=== PATIENT | female | born 1935 | race Caucasian/White ===

== ENCOUNTER 2016-10-20 07:37 | Inpatient (IN) | payer MEDICARE, OTHER ==
[~2016-10-20] VITALS: Ht 162.6 cm; Wt 74.9 kg
[~2016-10-20 07:37] MED LIST: ASPI-492 PO; BENA40TA2 PO; CLON0.1T PO; DABI150C PO; FELO10TA PO; INSLANTI; INSLISPI SC; LEVO150T68 PO; METO-169 PO; PRAV20TA3 PO; [UNRECOGNIZED DRUG - CODE] PO
[2016-10-20] MEDS ORDERED: DILTIAZEM HCL 25 MG/5 ML VIAL IV ONE ×2 (07:49→08:00)
[2016-10-20] MEDS ORDERED: SODIUM CHLORIDE 0.9% 1,000 ML IV ONE (07:53)
[2016-10-20 08:57] LABS: Basophils # (auto) 0 uL; Basophils % (auto) 0.2 % (0.0-2.0); Eosinophils # (auto) 0.1 uL; Eosinophils % (auto) 0.9 % (0.0-7.0); Hematocrit 34.8 % (36.0-46.0); Hemoglobin 11.6 g/dL (12.2-16.2); Lymphocytes # (auto) 0.6 uL; Lymphocytes % (auto) 7.2 % (10.0-50.0); Mean Corpuscular Hemoglobin 28.5 pg (28.0-32.0); Mean Corpuscular Hgb Conc. 33.4 g/dL (32.0-36.0); Mean Corpuscular Volume 85.4 fL (80.0-100.0); Mean Platelet Volume 8.3 fL (7.4-10.4); Monocytes # (auto) 0.3 uL; Monocytes % (auto) 3.4 % (0.0-12.0); Neutrophils # (auto) 7.5 uL; Neutrophils % (auto) 88.3 % (37.0-80.0); Platelet Count (auto) 201 10^3/uL (140-450); White Blood Cell 8.5 10^3/uL (4.4-10.8)
[2016-10-20 09:10] LABS: Partial Thromboplastin Time 46.4 sec (22.64-33.71)
[2016-10-20 09:12] LABS: Urine RBC None Seen /hpf (0 - 4)
[2016-10-20 09:17] LABS: Alkaline Phosphatase 78 U/L (45-117); Anion Gap 10 (5-15); Aspartate Aminotransferase 20 U/L (15-37); BUN/Creatinine Ratio 13.5; Bilirubin, Total 0.9 mg/dL (0.2-1.0); Blood Urea Nitrogen 13 mg/dL (7-18); Calcium 8.2 mg/dL (8.5-10.1); Carbon Dioxide 26 mmol/L (21-32); Chloride 101 mmol/L (98-107); GFR African American 72 mL/min; GFR Non-African American 59 mL/min; Glucose 235 mg/dL (74-106); Magnesium 1.6 mg/dL (1.6-2.6); Potassium 3.7 mmol/L (3.5-5.1); Sodium 137 mmol/L (136-145); Total Protein 6.5 g/dL (6.4-8.2)
[2016-10-20 09:22] LABS: B-Type Natriuretic Peptide 363.57 pg/mL (0-100); Temperature: 22.9 C (20.0-25.0)
[2016-10-20 09:27] LABS: INR 1.35 (0.9-1.15); Prothrombin Time 14.6 sec (9.37-12.3)
[2016-10-20 09:36] LABS: Urine Bilirubin Negative (Negative); Urine Blood Negative /uL (Negative); Urine Color Yellow (Yellow); Urine Nitrite Negative (Negative); Urine Squamous Epithelial Cell FEW /hpf (<5); Urine Urobilinogen Normal (Negative)
[2016-10-20 09:39] LABS: Urine Glucose 2+ mg/dL (Normal); Urine Ketone 1+ (Negative)
[2016-10-20] MEDS ORDERED: cefTRIAXone 1GM/50ML D5W 50 ML IV ONE (11:30)
[2016-10-20] MEDS ORDERED: FUROSEMIDE 40 MG/4 ML VIAL IV ONE ×2 (11:30→12:00)
[2016-10-20] MEDS ORDERED: IOHEXOL 350 MG/ML 100ML IJ ONE (11:39)
[2016-10-20] MEDS ORDERED: HYDROcodone-ACET 5/325MG TAB PO PRN (11:45)
[2016-10-20] MEDS ORDERED: DEXTROSE (50%) 50ML SYRG IV PRN (11:45)
[2016-10-20] MEDS ORDERED: TEMAZEPAM 15 MG CAP PO PRN (11:45)
[2016-10-20] MEDS ORDERED: MORPHINE SULF INJ 2 MG/ML SYRINGE 1ML IV PRN ×2 (11:45)
[2016-10-20] MEDS ORDERED: LORazepam 0.5 MG TAB PO PRN (11:45)
[2016-10-20] MEDS ORDERED: ALBUTEROL SULF 2.5 MG/0.5ML(0.5%) NEB SOLN NEB PRN (11:45)
[2016-10-20] MEDS ORDERED: ACETAMINOPHEN 500 MG TAB PO PRN (11:45)
[2016-10-20] MEDS ORDERED: NITROGLYCERIN 0.4 MG SL TAB SL PRN (11:45)
[2016-10-20] MEDS ORDERED: LACTULOSE 20Gm/30ML SOLN PO PRN (11:45)
[2016-10-20] MEDS ORDERED: PROCHLORPERAZINE EDISYLATE 5 MG/ML 2ML VIAL IV PRN (11:45)
[2016-10-20] MEDS ORDERED: AZITHROMYCIN 500MG/D5W 250ML 250 ML IV ONE (12:00)
[2016-10-20] MEDS ORDERED: amLODIPine BESYLATE 5 MG TAB PO ONE (12:00)
[2016-10-20] MEDS ORDERED: ASPirin 81 mg TAB PO ONE (12:00)
[2016-10-20] MEDS ORDERED: POTASSIUM CHL 20 Meq TABLET PO ONE (12:00)
[2016-10-20] MEDS ORDERED: BENAZEPRIL HCL 10 MG TAB PO ONE (12:00)
[2016-10-20] MEDS ORDERED: METOPROLOL SUCCINATE XL 50 MG TAB PO ONE (12:00)
[2016-10-20] MEDS ORDERED: LEVOTHYROXINE SODIUM 50 MCG TAB PO ONE (12:00)
[2016-10-20] MEDS ORDERED: LEVOTHYROXINE SODIUM 100 MCG TAB PO ONE (12:00)
[2016-10-20] MEDS: ALBUTEROL SULF 2.5 MG/0.5ML(0.5%) NEB SOLN NEB SCH ×2 (12:28→19:14)
[2016-10-20] MEDS: DABIGATRAN 75 MG CAP PO SCH ×2 (12:40→21:59)
[2016-10-20] MEDS ORDERED: DABIGATRAN 75 MG CAP PO ONE ×2 (13:15→13:45)
[2016-10-20 13:30] VITALS: BP 146/79
[2016-10-20] MEDS: cloNIDine HCL 0.1 MG TAB PO SCH ×2 (14:00→22:01)
[2016-10-20] MEDS: SODIUM CHLOR 0.9% PF (SALINE LOCK) 10ML VIAL IV SCH ×2 (14:00→22:12)
[2016-10-20 14:09] VITALS: BP 146/79
[2016-10-20 16:57] VITALS: BP 181/109
[2016-10-20] MEDS: InsuLIN REG 1unit/0.01ml Soln (100units/ml) SC SCH ×2 (17:30→22:12)
[2016-10-20] MEDS: ACCU-CHEK COMFORT CURVE STRIP VI SCH ×2 (17:32→22:01)
[2016-10-20 22:00] VITALS: BP 112/68
[2016-10-20] MEDS ORDERED: DABIGATRAN 75 MG CAP PO SCH ×2 (22:00)
[2016-10-20] MEDS ORDERED: DABIGATRAN ETEXILATE MESYLATE PO SCH (22:00)
[2016-10-21] MEDS: ALBUTEROL SULF 2.5 MG/0.5ML(0.5%) NEB SOLN NEB SCH ×4 (00:31→22:10)
[2016-10-21 04:59] VITALS: BP 125/70
[2016-10-21 05:52] LABS: Basophils # (auto) 0 uL; Basophils % (auto) 0.5 % (0.0-2.0); Eosinophils # (auto) 0.3 uL; Eosinophils % (auto) 3.8 % (0.0-7.0); Hematocrit 36.8 % (36.0-46.0); Lymphocytes % (auto) 13.8 % (10.0-50.0); Mean Corpuscular Hgb Conc. 32.5 g/dL (32.0-36.0); Mean Corpuscular Volume 86.3 fL (80.0-100.0); Mean Platelet Volume 8.7 fL (7.4-10.4); Monocytes # (auto) 0.5 uL; Monocytes % (auto) 6.1 % (0.0-12.0); Neutrophils # (auto) 5.7 uL; Neutrophils % (auto) 75.8 % (37.0-80.0); Platelet Count (auto) 214 10^3/uL (140-450); Red Cell Distribution Width 16.6 % (11.6-16.0); White Blood Cell 7.5 10^3/uL (4.4-10.8)
[2016-10-21 06:21] LABS: Potassium 3.7 mmol/L (3.5-5.1)
[2016-10-21 06:37] LABS: Albumin 3.3 g/dL (3.4-5.0); BUN/Creatinine Ratio 12.9; Bilirubin, Total 0.7 mg/dL (0.2-1.0); Calcium 8.4 mg/dL (8.5-10.1); Total Protein 7.2 g/dL (6.4-8.2)
[2016-10-21] MEDS: cloNIDine HCL 0.1 MG TAB PO SCH ×3 (06:41→22:57)
[2016-10-21] MEDS: ACCU-CHEK COMFORT CURVE STRIP VI SCH ×4 (06:42→22:00)
[2016-10-21] MEDS: SODIUM CHLOR 0.9% PF (SALINE LOCK) 10ML VIAL IV SCH ×3 (06:58→22:56)
[2016-10-21] MEDS: InsuLIN REG 1unit/0.01ml Soln (100units/ml) SC SCH ×4 (06:59→23:03)
[2016-10-21 08:01] LABS: B-Type Natriuretic Peptide 311.99 pg/mL (0-100); Temperature: 23.4 C (20.0-25.0)
[2016-10-21 09:00] VITALS: BP 122/67
[2016-10-21] MEDS: DABIGATRAN 75 MG CAP PO SCH ×2 (10:00→22:57)
[2016-10-21] MEDS ORDERED: FELODIPINE 10 MG PO SCH (10:00)
[2016-10-21] MEDS ORDERED: ASPirin 81 mg TAB PO SCH (10:00)
[2016-10-21] MEDS ORDERED: PATIENTS OWN MEDICATION (Benazepril Hcl 40 MG) PO SCH ×2 (10:00)
[2016-10-21] MEDS ORDERED: BENAZEPRIL HCL 10 MG TAB PO SCH (10:00)
[2016-10-21] MEDS ORDERED: PATIENTS OWN MEDICATION (Levothyroxine Sodium (Synthroid) 1 TAB) PO SCH (10:00)
[2016-10-21] MEDS: POTASSIUM CHL 20 Meq TABLET PO SCH (11:39)
[2016-10-21] MEDS: LEVOTHYROXINE SODIUM 50 MCG TAB PO SCH (11:40)
[2016-10-21] MEDS: PRAVASTATIN SODIUM 20 MG TAB PO SCH (11:40)
[2016-10-21] MEDS: LEVOTHYROXINE SODIUM 100 MCG TAB PO SCH (11:40)
[2016-10-21] MEDS: METOPROLOL SUCCINATE XL 50 MG TAB PO SCH (11:41)
[2016-10-21] MEDS: amLODIPine BESYLATE 5 MG TAB PO SCH (11:42)
[2016-10-21] MEDS: AZITHROMYCIN 500MG/D5W 250ML 250 ML IV SCH (11:43)
[2016-10-21] MEDS: cefTRIAXone 1GM/50ML D5W 50 ML IV SCH (11:43)
[2016-10-21] MEDS: FUROSEMIDE 40 MG/4 ML VIAL IV SCH (11:44)
[2016-10-21] MEDS: NITROGLYCERIN 0.2MG/HR TOPICAL PATCH TD SCH (11:44)
[2016-10-21 13:00] VITALS: BP 182/83
[2016-10-21] MEDS ORDERED: hydrALAZINE HCL 10 MG TAB PO PRN (15:30)
[2016-10-21] MEDS ORDERED: BENAZEPRIL HCL 10 MG TAB PO ONE (15:45)
[2016-10-21 17:00] VITALS: BP 129/85
[2016-10-21] MEDS ORDERED: GLYBURIDE METFORMIN PO SCH (17:00)
[2016-10-21 22:00] VITALS: BP 150/86
[2016-10-22 05:00] VITALS: BP 154/89
[2016-10-22] MEDS: ALBUTEROL SULF 2.5 MG/0.5ML(0.5%) NEB SOLN NEB SCH ×2 (05:58→19:24)
[2016-10-22] MEDS: cloNIDine HCL 0.1 MG TAB PO SCH ×3 (06:06→22:03)
[2016-10-22 06:29] LABS: Basophils # (auto) 0 uL; Basophils % (auto) 0.4 % (0.0-2.0); Eosinophils # (auto) 0.3 uL; Eosinophils % (auto) 3.4 % (0.0-7.0); Hematocrit 37.2 % (36.0-46.0); Lymphocytes # (auto) 0.9 uL; Lymphocytes % (auto) 11.6 % (10.0-50.0); Mean Corpuscular Hemoglobin 27.6 pg (28.0-32.0); Mean Corpuscular Hgb Conc. 32.3 g/dL (32.0-36.0); Mean Corpuscular Volume 85.3 fL (80.0-100.0); Mean Platelet Volume 8.3 fL (7.4-10.4); Monocytes # (auto) 0.5 uL; Monocytes % (auto) 6.1 % (0.0-12.0); Neutrophils # (auto) 6.2 uL; Neutrophils % (auto) 78.5 % (37.0-80.0); Platelet Count (auto) 210 10^3/uL (140-450); Red Cell Distribution Width 16.4 % (11.6-16.0); White Blood Cell 7.9 10^3/uL (4.4-10.8)
[2016-10-22 06:43] LABS: Albumin 3.1 g/dL (3.4-5.0); BUN/Creatinine Ratio 13.4; Bilirubin, Total 0.6 mg/dL (0.2-1.0); Calcium 8.3 mg/dL (8.5-10.1); Potassium 3.9 mmol/L (3.5-5.1)
[2016-10-22] MEDS: SODIUM CHLOR 0.9% PF (SALINE LOCK) 10ML VIAL IV SCH ×3 (06:43→22:04)
[2016-10-22] MEDS: InsuLIN REG 1unit/0.01ml Soln (100units/ml) SC SCH ×4 (06:44→22:06)
[2016-10-22] MEDS: ACCU-CHEK COMFORT CURVE STRIP VI SCH ×3 (06:44→22:05)
[2016-10-22 07:04] LABS: Partial Thromboplastin Time 40.1 sec (22.64-33.71)
[2016-10-22 07:18] LABS: INR 1.18 (0.9-1.15); Prothrombin Time 12.7 sec (9.37-12.3)
[2016-10-22] MEDS: GLYBURIDE METFORMIN PO SCH ×2 (08:00→18:00)
[2016-10-22 09:00] VITALS: BP 139/85
[2016-10-22] MEDS: LEVOTHYROXINE SODIUM 100 MCG TAB PO SCH (10:00)
[2016-10-22] MEDS: LEVOTHYROXINE SODIUM 50 MCG TAB PO SCH (10:00)
[2016-10-22] MEDS: DABIGATRAN 75 MG CAP PO SCH ×2 (10:00→22:03)
[2016-10-22 12:51] VITALS: BP 134/88
[2016-10-22] MEDS ORDERED: TIMO0.5S40 OP (13:27)
[2016-10-22] MEDS ORDERED: POLYSOL5 EACHEYE (13:27)
[2016-10-22] MEDS: cefTRIAXone 1GM/50ML D5W 50 ML IV SCH ×2 (15:11→15:38)
[2016-10-22] MEDS: FUROSEMIDE 40 MG/4 ML VIAL IV SCH (15:12)
[2016-10-22] MEDS: ASPirin-EC 81 mg tab PO SCH (15:13)
[2016-10-22] MEDS: POTASSIUM CHL 20 Meq TABLET PO SCH (15:14)
[2016-10-22] MEDS: NITROGLYCERIN 0.2MG/HR TOPICAL PATCH TD SCH (15:14)
[2016-10-22] MEDS: amLODIPine BESYLATE 5 MG TAB PO SCH (15:17)
[2016-10-22] MEDS: METOPROLOL SUCCINATE XL 50 MG TAB PO SCH (15:18)
[2016-10-22] MEDS: BENAZEPRIL HCL 10 MG TAB PO SCH (15:23)
[2016-10-22] MEDS: PRAVASTATIN SODIUM 20 MG TAB PO SCH (15:26)
[2016-10-22] MEDS: AZITHROMYCIN 500MG/D5W 250ML 250 ML IV SCH (16:57)
[2016-10-22 17:00] VITALS: BP 160/91
[2016-10-22 22:00] VITALS: BP 159/88
[2016-10-22] MEDS: ARTIFICIAL TEARS 15ml EACHEYE SCH (22:05)
[2016-10-23 05:32] LABS: Basophils # (auto) 0 uL; Basophils % (auto) 0.2 % (0.0-2.0); Eosinophils # (auto) 0.2 uL; Eosinophils % (auto) 3.2 % (0.0-7.0); Hematocrit 35.4 % (36.0-46.0); Hemoglobin 11.5 g/dL (12.2-16.2); Lymphocytes # (auto) 0.8 uL; Lymphocytes % (auto) 13.9 % (10.0-50.0); Mean Corpuscular Hemoglobin 27.9 pg (28.0-32.0); Mean Corpuscular Hgb Conc. 32.4 g/dL (32.0-36.0); Mean Corpuscular Volume 86.2 fL (80.0-100.0); Mean Platelet Volume 8.1 fL (7.4-10.4); Monocytes # (auto) 0.4 uL; Monocytes % (auto) 6.5 % (0.0-12.0); Neutrophils # (auto) 4.3 uL; Neutrophils % (auto) 76.2 % (37.0-80.0); Platelet Count (auto) 199 10^3/uL (140-450); Red Cell Distribution Width 16.5 % (11.6-16.0); White Blood Cell 5.6 10^3/uL (4.4-10.8)
[2016-10-23 05:40] LABS: Partial Thromboplastin Time 45.2 sec (22.64-33.71)
[2016-10-23 05:43] LABS: INR 1.34 (0.9-1.15); Prothrombin Time 14.5 sec (9.37-12.3)
[2016-10-23 05:44] LABS: BUN/Creatinine Ratio 10.5; Potassium 3.7 mmol/L (3.5-5.1)
[2016-10-23] MEDS: cloNIDine HCL 0.1 MG TAB PO SCH ×2 (06:20→22:24)
[2016-10-23] MEDS: SODIUM CHLOR 0.9% PF (SALINE LOCK) 10ML VIAL IV SCH ×2 (06:49→22:22)
[2016-10-23] MEDS: ACCU-CHEK COMFORT CURVE STRIP VI SCH ×4 (06:51→22:24)
[2016-10-23] MEDS: InsuLIN REG 1unit/0.01ml Soln (100units/ml) SC SCH ×2 (06:52→22:25)
[2016-10-23 07:06] VITALS: BP 152/94
[2016-10-23] MEDS: ALBUTEROL SULF 2.5 MG/0.5ML(0.5%) NEB SOLN NEB SCH ×5 (07:40→19:46)
[2016-10-23] MEDS: GLYBURIDE METFORMIN PO SCH (08:00)
[2016-10-23] MEDS: ARTIFICIAL TEARS 15ml EACHEYE SCH ×2 (09:38→22:24)
[2016-10-23] MEDS: FUROSEMIDE 40 MG/4 ML VIAL IV SCH (09:39)
[2016-10-23] MEDS: NITROGLYCERIN 0.2MG/HR TOPICAL PATCH TD SCH (09:40)
[2016-10-23] MEDS: METOPROLOL SUCCINATE XL 50 MG TAB PO SCH (09:43)
[2016-10-23] MEDS: LEVOTHYROXINE SODIUM 50 MCG TAB PO SCH (09:44)
[2016-10-23] MEDS: PRAVASTATIN SODIUM 20 MG TAB PO SCH (09:45)
[2016-10-23] MEDS: LEVOTHYROXINE SODIUM 100 MCG TAB PO SCH (09:45)
[2016-10-23] MEDS: PANTOPRAZOLE 40 MG TAB PO SCH (09:46)
[2016-10-23] MEDS: cefTRIAXone 1GM/50ML D5W 50 ML IV SCH (09:48)
[2016-10-23] MEDS: BENAZEPRIL HCL 10 MG TAB PO SCH (09:49)
[2016-10-23] MEDS: POTASSIUM CHL 20 Meq TABLET PO SCH (09:50)
[2016-10-23] MEDS: ASPirin-EC 81 mg tab PO SCH (09:51)
[2016-10-23] MEDS: DABIGATRAN 75 MG CAP PO SCH ×2 (10:00→22:24)
[2016-10-23] MEDS: amLODIPine BESYLATE 5 MG TAB PO SCH (10:00)
[2016-10-23 11:26] VITALS: BP 156/96
[2016-10-23] MEDS: AZITHROMYCIN 500MG/D5W 250ML 250 ML IV SCH (12:00)
[2016-10-23 16:37] VITALS: BP 161/100
[2016-10-23] MEDS: Boost Glucose Control 8 Ounces PO SCH (18:23)
[2016-10-23 21:04] VITALS: BP 161/100
[2016-10-23 22:00] VITALS: BP 150/92
[2016-10-23] MEDS: DOXYCYCLINE 100 MG TAB/CAP PO SCH (22:25)
[2016-10-24 05:30] VITALS: BP 157/85
[2016-10-24] MEDS: SODIUM CHLOR 0.9% PF (SALINE LOCK) 10ML VIAL IV SCH (06:29)
[2016-10-24] MEDS: cloNIDine HCL 0.1 MG TAB PO SCH (06:29)
[2016-10-24] MEDS: ALBUTEROL SULF 2.5 MG/0.5ML(0.5%) NEB SOLN NEB SCH ×2 (06:31→13:03)
[2016-10-24 06:37] LABS: Basophils # (auto) 0 uL; Basophils % (auto) 0.6 % (0.0-2.0); Eosinophils # (auto) 0.4 uL; Eosinophils % (auto) 5.7 % (0.0-7.0); Hematocrit 35.7 % (36.0-46.0); Hemoglobin 11.8 g/dL (12.2-16.2); Lymphocytes # (auto) 0.8 uL; Lymphocytes % (auto) 11.6 % (10.0-50.0); Mean Corpuscular Volume 84.9 fL (80.0-100.0); Mean Platelet Volume 8.1 fL (7.4-10.4); Monocytes # (auto) 0.4 uL; Monocytes % (auto) 5.5 % (0.0-12.0); Neutrophils # (auto) 4.9 uL; Neutrophils % (auto) 76.6 % (37.0-80.0); Platelet Count (auto) 192 10^3/uL (140-450); Red Cell Distribution Width 17.1 % (11.6-16.0); White Blood Cell 6.4 10^3/uL (4.4-10.8)
[2016-10-24] MEDS: ACCU-CHEK COMFORT CURVE STRIP VI SCH (06:37)
[2016-10-24] MEDS: InsuLIN REG 1unit/0.01ml Soln (100units/ml) SC SCH (06:38)
[2016-10-24 06:56] LABS: Albumin 3.1 g/dL (3.4-5.0); Calcium 7.9 mg/dL (8.5-10.1); Potassium 3.9 mmol/L (3.5-5.1)
[2016-10-24 07:03] LABS: BUN/Creatinine Ratio 9.1; Bilirubin, Total 0.5 mg/dL (0.2-1.0); Total Protein 6.7 g/dL (6.4-8.2)
[2016-10-24] MEDS: Boost Glucose Control 8 Ounces PO SCH (08:00)
[2016-10-24] MEDS ORDERED: DOCUSATE SOD 100 MG CAP PO ONE (08:46)
[2016-10-24 09:00] VITALS: BP 135/72
[2016-10-24] MEDS: LEVOTHYROXINE SODIUM 50 MCG TAB PO SCH (10:11)
[2016-10-24] MEDS: NITROGLYCERIN 0.2MG/HR TOPICAL PATCH TD SCH (10:11)
[2016-10-24] MEDS: PRAVASTATIN SODIUM 20 MG TAB PO SCH (10:11)
[2016-10-24] MEDS: LEVOTHYROXINE SODIUM 100 MCG TAB PO SCH (10:11)
[2016-10-24] MEDS: DOXYCYCLINE 100 MG TAB/CAP PO SCH (10:12)
[2016-10-24] MEDS: FUROSEMIDE 40 MG/4 ML VIAL IV SCH (10:13)
[2016-10-24] MEDS: METOPROLOL SUCCINATE XL 50 MG TAB PO SCH (10:13)
[2016-10-24] MEDS: BENAZEPRIL HCL 10 MG TAB PO SCH (10:15)
[2016-10-24] MEDS: amLODIPine BESYLATE 5 MG TAB PO SCH (10:22)
[2016-10-24 11:13] VITALS: BP 128/76
[2016-10-24] MEDS: ASPirin-EC 81 mg tab PO SCH (14:23)
[2016-10-24] MEDS: POTASSIUM CHL 20 Meq TABLET PO SCH (14:24)
[2016-10-24] MEDS: PANTOPRAZOLE 40 MG TAB PO SCH (14:24)
== END 2016-10-24 14:00 | disposition home or self-care (01) | DRG 291 ==
LOC: ER 07:37 → EDBD 07:37 → TELE 07:38 → TELE-WESTW 13:23
PROVIDERS: ADMIT Internal Medicine; ATTEND Internal Medicine
DX: I11.0 Hypertensive heart disease with heart failure (principal); J18.9 Pneumonia, unspecified organism; I48.92 Unspecified atrial flutter; E87.1 Hypo-osmolality and hyponatremia; D68.9 Coagulation defect, unspecified; E44.0 Moderate protein-calorie malnutrition; D68.69 Other thrombophilia; J44.0 Chronic obstructive pulmonary disease with (acute) lower respiratory infection; I50.33 Acute on chronic diastolic (congestive) heart failure; E11.21 Type 2 diabetes mellitus with diabetic nephropathy; I25.10 Atherosclerotic heart disease of native coronary artery without angina pectoris; E11.42 Type 2 diabetes mellitus with diabetic polyneuropathy; I48.91 Unspecified atrial fibrillation; F41.9 Anxiety disorder, unspecified; E78.5 Hyperlipidemia, unspecified; E89.0 Postprocedural hypothyroidism; Y83.8 Other surgical procedures as the cause of abnormal reaction of the patient, or of later complication, without mention of misadventure at the time of the procedure; D63.8 Anemia in other chronic diseases classified elsewhere; E11.65 Type 2 diabetes mellitus with hyperglycemia; Z82.49 Family history of ischemic heart disease and other diseases of the circulatory system; Z83.3 Family history of diabetes mellitus; Z79.82 Long term (current) use of aspirin; Z79.899 Other long term (current) drug therapy
CPT/HCPCS: 36415; 51702; 71010; 71275; 80048; 80053; 80061; 81001; 82550; 82962; 83036; 83735; 83880; 84443; 84484; 85025; 85379; 85610; 85730; 87040; 93005; 94640; 94761; 96361; 96365; 96367; 96375; J0696; J1815

== ENCOUNTER 2017-07-29 13:25 | Inpatient (IN) | payer MEDICARE ==
[~2017-07-29] VITALS: Ht 167.6 cm; Wt 70.0 kg
[~2017-07-29 13:25] MED LIST changes: -BENA40TA2 PO; +BENA40TA7 PO; -DABI150C PO; -INSLANTI; -INSLISPI SC; +POLYSOL5 EACHEYE
[2017-07-29] MEDS ORDERED: SODIUM CHLORIDE 0.9% 1,000 ML IV ONE ×2 (13:34)
[2017-07-29] MEDS ORDERED: PIPERACILLIN-TAZOB 3.375GM 50 ML IV ONE ×2 (13:45→15:45)
[2017-07-29 14:23] LABS: Basophils # (auto) 0.1 uL; Eosinophils # (auto) 0 uL; Eosinophils % (auto) 0.1 % (0.0-7.0); Hematocrit 51.8 % (36.0-46.0); Mean Corpuscular Volume 84.6 fL (80.0-100.0); Nucleated Red Blood Cells % 0.1 %; Red Blood Cells 6.12 10^6/uL (4.0-5.20)
[2017-07-29 14:23] LABS: Urine Bacteria FEW /hpf (None Seen); Urine Blood 1+ /uL (Negative); Urine Specific Gravity 1.017 (1.001-1.035); Urine WBC 1 /hpf (0 - 5)
[2017-07-29 14:25] LABS: Basophils % (auto) 0.3 % (0.0-2.0); Hemoglobin 17.2 g/dL (12.2-16.2); Lymphocytes # (auto) 1.6 uL; Lymphocytes % (auto) 8.2 % (10.0-50.0); Mean Corpuscular Hemoglobin 28.1 pg (28.0-32.0); Mean Corpuscular Hgb Conc. 33.2 g/dL (32.0-36.0); Monocytes # (auto) 0.4 uL; Monocytes % (auto) 1.9 % (0.0-12.0); Neutrophils # (auto) 17.5 uL; Neutrophils % (auto) 89.5 % (37.0-80.0); Platelet Count (auto) 241 10^3/uL (140-450); Red Cell Distribution Width 15.3 % (11.8-14.3); White Blood Cell 19.6 10^3/uL (4.4-10.8)
[2017-07-29 14:30] LABS: INR 1.11 (0.9-1.15); Partial Thromboplastin Time 30.8 sec (22.64-33.71); Prothrombin Time 12.1 sec (9.37-12.3)
[2017-07-29 14:33] LABS: Alanine Aminotransferase 18 U/L (13-56); Albumin 3.6 g/dL (3.4-5.0); Alkaline Phosphatase 119 U/L (45-117); Anion Gap 23 (5-15); Aspartate Aminotransferase 22 U/L (15-37); BUN/Creatinine Ratio 9.8; Bilirubin, Total 0.7 mg/dL (0.2-1.0); Blood Urea Nitrogen 13 mg/dL (7-18); Calcium 8.6 mg/dL (8.5-10.1); Carbon Dioxide 17 mmol/L (21-32); Chloride 97 mmol/L (98-107); GFR African American 50 mL/min; GFR Non-African American 41 mL/min; Potassium 3.4 mmol/L (3.5-5.1); Sodium 137 mmol/L (136-145); Total Protein 8.5 g/dL (6.4-8.2)
[2017-07-29 14:52] LABS: Glucose 483 mg/dL (74-106)
[2017-07-29] MEDS ORDERED: HALOPERIDOL LACTATE 5 MG/ML INJ VIAL IM ONE (15:00)
[2017-07-29] MEDS ORDERED: LORazepam 2MG/ML-1ML VIAL IV ONE ×2 (15:00→15:45)
[2017-07-29 15:12] LABS: Lactic Acid w/Reflex 6.2 mmol/L (0.4-2.0)
[2017-07-29] MEDS ORDERED: AMIODARONE HCL (50 MG/ ML) 3 ML VIAL IV ONE (15:26)
[2017-07-29] MEDS ORDERED: AMIODARONE HCL 150 MG in D5W 5% 100 ML IV ONE (15:30)
[2017-07-29] MEDS ORDERED: AMIODARONE HCL 900 MG in DEXTROSE 500 ML IV SCH ×3 (15:32→22:00)
[2017-07-29] MEDS ORDERED: InsuLIN R (HUMAN) 100 UNITS in SODIUM CHL 0.9% 99 ML IV SCH (15:42)
[2017-07-29] MEDS ORDERED: SODIUM CHLORIDE 0.9% 1,000 ML IV SCH ×3 (15:42→21:42)
[2017-07-29] MEDS ORDERED: DEXTROSE (50%) 50ML SYRG IV PRN ×2 (15:45→16:00)
[2017-07-29] MEDS ORDERED: CLINDAMYCIN 600MG IV 50 ML IV ONE (15:45)
[2017-07-29] MEDS ORDERED: SODIUM BICARBONATE 8.4 % INJ 50ML VIAL IV ONE (16:00)
[2017-07-29] MEDS: SODIUM CHLORIDE 0.9% 1,000 ML IV SCH ×3 (16:06→17:34)
[2017-07-29] MEDS: InsuLIN R (HUMAN) 100 UNITS in SODIUM CHL 0.9% 99 ML IV SCH ×3 (16:17→19:57)
[2017-07-29] MEDS: ACCU-CHEK COMFORT CURVE STRIP VI SCH ×5 (16:19→22:30)
[2017-07-29 16:28] LABS: Magnesium 1.5 mg/dL (1.6-2.6); Phosphorus 3.4 mg/dL (2.5-4.90)
[2017-07-29] MEDS ORDERED: ACCU-CHEK COMFORT CURVE STRIP VI SCH (16:30)
[2017-07-29] MEDS ORDERED: VANCOMYCIN PER PHARMACY 0 MG IV SCH (17:30)
[2017-07-29] MEDS ORDERED: PANTOPRAZOLE 40 MG/10 ML VIAL IV ONE (17:30)
[2017-07-29] MEDS ORDERED: ONDANSETRON HCL 4 MG/2 ML VIAL IV PRN (17:30)
[2017-07-29] MEDS ORDERED: NITROGLYCERIN 0.4 MG SL TAB SL PRN (17:30)
[2017-07-29] MEDS ORDERED: MORPHINE SULFATE 10 MG/ML INJ 1ML SDV IV PRN ×2 (17:30)
[2017-07-29] MEDS ORDERED: MAGNESIUM SULFATE 1GM/100ML 100 ML IV ONE (17:30)
[2017-07-29] MEDS ORDERED: FAMOTIDINE (10MG/ML) 2ML VL IV ONE (17:30)
[2017-07-29] MEDS ORDERED: PIPERACILLIN-TAZOB 3.375GM 50 ML IV SCH (18:00)
[2017-07-29] MEDS ORDERED: VANCOMYCIN 1,250 MG in D5W 5% 250 ML IV SCH (19:00)
[2017-07-29] MEDS ORDERED: cloNIDine HCL 0.1 MG TAB PO PRN (19:45)
[2017-07-29] MEDS: VANCOMYCIN 1,250 MG in D5W 5% 250 ML IV SCH (21:07)
[2017-07-29] MEDS ORDERED: ACETAMINOPHEN 650 MG RECT SUPP PR PRN ×2 (22:45→23:15)
[2017-07-29] MEDS ORDERED: ACETAMINOPHEN 650 MG RECT SUPP PR ONE (22:48)
[2017-07-29] MEDS: PIPERACILLIN-TAZOB 3.375GM 50 ML IV SCH (23:13)
[2017-07-30] VITALS (44 sets, daily range): BP systolic 115–208; BP diastolic 71–124
[2017-07-30] MEDS ORDERED: cloNIDine HCL 0.1 MG TAB PO PRN ×3 (00:30→15:30)
[2017-07-30] MEDS ORDERED: METOPROLOL SUCCINATE XL 50 MG TAB PO ONE ×2 (00:30→09:00)
[2017-07-30] MEDS: ACCU-CHEK COMFORT CURVE STRIP VI SCH ×7 (01:15→09:46)
[2017-07-30 01:26] LABS: BUN/Creatinine Ratio 13.8; Calcium 6.2 mg/dL (8.5-10.1)
[2017-07-30 01:30] LABS: Potassium 2.3 mmol/L (3.5-5.1)
[2017-07-30 01:35] LABS: Lactic Acid w/Reflex 2.2 mmol/L (0.4-2.0)
[2017-07-30] MEDS ORDERED: POTASSIUM CHL 20MEQ/100ML 200 ML IV ONE (02:11)
[2017-07-30] MEDS ORDERED: POTASSIUM CHL 10% (20 MEQ/15ML) 15ml ORAL SOLN GT ONE (02:15)
[2017-07-30] MEDS: POTASSIUM CHL 20MEQ/100ML 100 ML IV SCH ×2 (02:36→08:00)
[2017-07-30] MEDS: PIPERACILLIN-TAZOB 3.375GM 50 ML IV SCH ×4 (03:55→22:14)
[2017-07-30] MEDS ORDERED: cloNIDine HCL 0.1 MG TAB PO ONE (04:45)
[2017-07-30 08:17] LABS: Basophils # (auto) 0.1 uL; Basophils % (auto) 0.3 % (0.0-2.0); Eosinophils # (auto) 0 uL; Hematocrit 44.9 % (36.0-46.0); Hemoglobin 14.8 g/dL (12.2-16.2); Lymphocytes # (auto) 1.4 uL; Lymphocytes % (auto) 6.4 % (10.0-50.0); Mean Corpuscular Hemoglobin 27.8 pg (28.0-32.0); Mean Corpuscular Volume 84.1 fL (80.0-100.0); Monocytes # (auto) 0.7 uL; Monocytes % (auto) 3.1 % (0.0-12.0); Neutrophils # (auto) 20.6 uL; Neutrophils % (auto) 90.2 % (37.0-80.0); Nucleated Red Blood Cells % 0.2 %; Platelet Count (auto) 194 10^3/uL (140-450); Red Blood Cells 5.34 10^6/uL (4.0-5.20); Red Cell Distribution Width 15.6 % (11.8-14.3); White Blood Cell 22.8 10^3/uL (4.4-10.8)
[2017-07-30] MEDS: SODIUM CHLORIDE 0.9% 1,000 ML IV SCH (08:43)
[2017-07-30 08:47] LABS: BUN/Creatinine Ratio 12.5; Bilirubin, Total 0.4 mg/dL (0.2-1.0); Calcium 7.4 mg/dL (8.5-10.1); Magnesium 1.9 mg/dL (1.6-2.6); Potassium 3.2 mmol/L (3.5-5.1); Total Protein 6.9 g/dL (6.4-8.2)
[2017-07-30] MEDS: PANTOPRAZOLE 40 MG/10 ML VIAL IV SCH (09:29)
[2017-07-30] MEDS: ENOXAPARIN SOD 40 MG/0.4 ML SYRINGE SC SCH (09:30)
[2017-07-30] MEDS: FAMOTIDINE (10MG/ML) 2ML VL IV SCH (09:30)
[2017-07-30] MEDS ORDERED: METOPROLOL SUCCINATE XL 50 MG TAB PO SCH (10:00)
[2017-07-30] MEDS ORDERED: DEXTROSE (50%) 50ML SYRG IV PRN (10:15)
[2017-07-30] MEDS: AMIODARONE HCL 200 MG TAB PO SCH ×2 (11:08→22:03)
[2017-07-30] MEDS ORDERED: ACCU-CHEK COMFORT CURVE STRIP VI SCH (11:30)
[2017-07-30] MEDS: Boost Glucose Control 8 Ounces PO SCH ×2 (12:00→18:26)
[2017-07-30] MEDS ORDERED: BENAZEPRIL HCL 10 MG TAB PO ONE (12:30)
[2017-07-30] MEDS ORDERED: cloNIDine 0.3 mg/24hr 7DAY PATCH TD SCH (12:30)
[2017-07-30] MEDS: InsuLIN REG 1unit/0.01ml Soln (100units/ml) SC SCH ×3 (12:45→22:04)
[2017-07-30] MEDS: NovoloG Insulin 1unit/0.01ml Soln (100units/ml) SC SCH ×2 (12:45→17:12)
[2017-07-30] MEDS ORDERED: LIDOCAINE 1% HCL (LOCAL ANESTH.) INJ 20ML MDV ID ONE (13:15)
[2017-07-30] MEDS ORDERED: DABI150C PO (15:49)
[2017-07-30 16:07] LABS: BUN/Creatinine Ratio 12.6; Calcium 6.9 mg/dL (8.5-10.1)
[2017-07-30 16:13] LABS: Potassium 2.7 mmol/L (3.5-5.1)
[2017-07-30] MEDS ORDERED: POTASSIUM CHLORIDE 40 MEQ, LIDOCAINE 1% (LOCAL ANESTH.) 4 ML in SODIUM CHL 0.9% 250 ML IV ONE (17:00)
[2017-07-30] MEDS ORDERED: POTASSIUM CHLORIDE 40 MEQ, LIDOCAINE 1% (LOCAL ANESTH.) 4 ML in SODIUM CHL 0.9% 100 ML IV ONE (17:00)
[2017-07-30] MEDS: LABETALOL HCL 5 MG/ML ML 20ML VIAL IV PRN (17:21)
[2017-07-30] MEDS: glyBURIDE 5 MG TAB PO SCH (18:00)
[2017-07-30] MEDS: VANCOMYCIN 1,250 MG in D5W 5% 250 ML IV SCH (20:05)
[2017-07-30] MEDS: SODIUM CHLOR 0.9% PF (SALINE LOCK) 10ML VIAL IV SCH (22:02)
[2017-07-30] MEDS: BENAZEPRIL HCL 10 MG TAB PO SCH (22:03)
[2017-07-30] MEDS: INSULIN DETEMIR(LEVEMIR) 1unit/0.01ml Soln (100units/ml) SC SCH (22:04)
[2017-07-31] VITALS (37 sets, daily range): BP systolic 114–224; BP diastolic 48–129
[2017-07-31] MEDS: LABETALOL HCL 5 MG/ML ML 20ML VIAL IV PRN ×2 (03:05→06:38)
[2017-07-31] MEDS: PIPERACILLIN-TAZOB 3.375GM 50 ML IV SCH ×4 (04:10→22:07)
[2017-07-31 04:15] LABS: Basophils # (auto) 0.1 uL; Basophils % (auto) 0.6 % (0.0-2.0); Eosinophils # (auto) 0 uL; Eosinophils % (auto) 0.1 % (0.0-7.0); Hematocrit 42.8 % (36.0-46.0); Hemoglobin 14.4 g/dL (12.2-16.2); Lymphocytes # (auto) 1.3 uL; Lymphocytes % (auto) 8.8 % (10.0-50.0); Mean Corpuscular Hemoglobin 28.3 pg (28.0-32.0); Mean Corpuscular Hgb Conc. 33.6 g/dL (32.0-36.0); Mean Corpuscular Volume 84.4 fL (80.0-100.0); Monocytes # (auto) 0.4 uL; Monocytes % (auto) 2.9 % (0.0-12.0); Neutrophils # (auto) 12.9 uL; Neutrophils % (auto) 87.6 % (37.0-80.0); Nucleated Red Blood Cells % 0.1 %; Platelet Count (auto) 175 10^3/uL (140-450); Red Blood Cells 5.07 10^6/uL (4.0-5.20); Red Cell Distribution Width 15.9 % (11.8-14.3); White Blood Cell 14.7 10^3/uL (4.4-10.8)
[2017-07-31 04:51] LABS: Albumin 2.8 g/dL (3.4-5.0); BUN/Creatinine Ratio 11.7; Bilirubin, Total 0.8 mg/dL (0.2-1.0); Calcium 7.8 mg/dL (8.5-10.1); Potassium 3.7 mmol/L (3.5-5.1); Total Protein 6.5 g/dL (6.4-8.2)
[2017-07-31] MEDS: glyBURIDE 5 MG TAB PO SCH ×2 (06:39→19:11)
[2017-07-31] MEDS: LEVOTHYROXINE SODIUM 50 MCG TAB PO SCH (06:39)
[2017-07-31] MEDS: InsuLIN REG 1unit/0.01ml Soln (100units/ml) SC SCH ×4 (06:40→22:26)
[2017-07-31] MEDS: NovoloG Insulin 1unit/0.01ml Soln (100units/ml) SC SCH ×3 (06:40→17:00)
[2017-07-31] MEDS: SODIUM CHLORIDE 0.9% 1,000 ML IV SCH ×2 (06:40→19:16)
[2017-07-31] MEDS: DILTIAZEM 125mg/125ml BAG KIT 100 ML IV SCH (09:09)
[2017-07-31] MEDS: PANTOPRAZOLE 40 MG/10 ML VIAL IV SCH (09:21)
[2017-07-31] MEDS: FAMOTIDINE (10MG/ML) 2ML VL IV SCH (09:21)
[2017-07-31] MEDS: Boost Glucose Control 8 Ounces PO SCH ×3 (09:21→19:12)
[2017-07-31] MEDS: SODIUM CHLOR 0.9% PF (SALINE LOCK) 10ML VIAL IV SCH ×2 (09:21→22:08)
[2017-07-31] MEDS: DILTIAZEM HCL 60 MG TAB PO SCH ×3 (09:21→22:06)
[2017-07-31] MEDS: AMIODARONE HCL 200 MG TAB PO SCH ×2 (09:21→22:07)
[2017-07-31] MEDS: BENAZEPRIL HCL 10 MG TAB PO SCH ×2 (09:21→22:05)
[2017-07-31] MEDS: ENOXAPARIN SOD 40 MG/0.4 ML SYRINGE SC SCH (09:21)
[2017-07-31] MEDS ORDERED: METOPROLOL SUCCINATE XL 50 MG TAB PO SCH (10:00)
[2017-07-31] MEDS ORDERED: METOPROLOL SUCCINATE XL 50 MG TAB PO ONE (10:30)
[2017-07-31] MEDS ORDERED: cloNIDine HCL 0.1 MG TAB ONE (13:26)
[2017-07-31] MEDS ORDERED: cloNIDine HCL 0.1 MG TAB PO PRN (13:30)
[2017-07-31] MEDS ORDERED: hydrALAZINE HCL 20 MG/ML VL ONE (15:05)
[2017-07-31] MEDS ORDERED: LORazepam 0.5 MG TAB ONE (15:08)
[2017-07-31] MEDS ORDERED: hydrALAZINE HCL 20 MG/ML VL IV PRN (15:15)
[2017-07-31] MEDS ORDERED: LORazepam 0.5 MG TAB PO PRN ×3 (15:15→16:15)
[2017-07-31] MEDS: VANCOMYCIN 1,250 MG in D5W 5% 250 ML IV SCH (20:07)
[2017-07-31] MEDS: METOPROLOL SUCCINATE XL 50 MG TAB PO SCH (22:06)
[2017-07-31] MEDS: INSULIN DETEMIR(LEVEMIR) 1unit/0.01ml Soln (100units/ml) SC SCH (22:25)
[2017-08-01] VITALS (18 sets, daily range): BP systolic 140–192; BP diastolic 62–101
[2017-08-01] MEDS: PIPERACILLIN-TAZOB 3.375GM 50 ML IV SCH ×4 (04:17→22:00)
[2017-08-01] MEDS: DILTIAZEM 125mg/125ml BAG KIT 100 ML IV SCH (05:15)
[2017-08-01 05:47] LABS: Basophils # (auto) 0.3 uL; Basophils % (auto) 2.4 % (0.0-2.0); Eosinophils # (auto) 0.1 uL; Eosinophils % (auto) 1.3 % (0.0-7.0); Hematocrit 40.7 % (36.0-46.0); Hemoglobin 13.8 g/dL (12.2-16.2); Lymphocytes # (auto) 0.9 uL; Lymphocytes % (auto) 7.7 % (10.0-50.0); Mean Corpuscular Hemoglobin 28.5 pg (28.0-32.0); Mean Corpuscular Volume 83.9 fL (80.0-100.0); Monocytes # (auto) 0.5 uL; Monocytes % (auto) 4.2 % (0.0-12.0); Neutrophils # (auto) 9.9 uL; Neutrophils % (auto) 84.4 % (37.0-80.0); Nucleated Red Blood Cells % 0.2 %; Platelet Count (auto) 167 10^3/uL (140-450); Red Blood Cells 4.85 10^6/uL (4.0-5.20); Red Cell Distribution Width 15.5 % (11.8-14.3); White Blood Cell 11.7 10^3/uL (4.4-10.8)
[2017-08-01 05:59] LABS: Albumin 2.9 g/dL (3.4-5.0); Anion Gap 11 (5-15); Aspartate Aminotransferase 31 U/L (15-37); BUN/Creatinine Ratio 9.6; Blood Urea Nitrogen 10 mg/dL (7-18); Calcium 8.3 mg/dL (8.5-10.1); Carbon Dioxide 26 mmol/L (21-32); Chloride 100 mmol/L (98-107); GFR African American 65 mL/min; GFR Non-African American 54 mL/min; Glucose 186 mg/dL (74-106); Potassium 3.8 mmol/L (3.5-5.1); Sodium 137 mmol/L (136-145)
[2017-08-01 06:11] LABS: Alanine Aminotransferase 18 U/L (13-56); Alkaline Phosphatase 76 U/L (45-117); Bilirubin, Total 1.1 mg/dL (0.2-1.0); Total Protein 6.7 g/dL (6.4-8.2)
[2017-08-01] MEDS: LEVOTHYROXINE SODIUM 50 MCG TAB PO SCH (06:26)
[2017-08-01] MEDS: glyBURIDE 5 MG TAB PO SCH ×2 (06:26→16:33)
[2017-08-01] MEDS: DILTIAZEM HCL 60 MG TAB PO SCH ×3 (06:26→23:32)
[2017-08-01] MEDS: NovoloG Insulin 1unit/0.01ml Soln (100units/ml) SC SCH ×3 (06:27→16:33)
[2017-08-01] MEDS: InsuLIN REG 1unit/0.01ml Soln (100units/ml) SC SCH ×4 (06:27→22:00)
[2017-08-01] MEDS: Boost Glucose Control 8 Ounces PO SCH ×2 (08:00→11:21)
[2017-08-01] MEDS: SODIUM CHLOR 0.9% PF (SALINE LOCK) 10ML VIAL IV SCH ×2 (09:15→21:16)
[2017-08-01] MEDS: FAMOTIDINE (10MG/ML) 2ML VL IV SCH (09:15)
[2017-08-01] MEDS: ENOXAPARIN SOD 40 MG/0.4 ML SYRINGE SC SCH (09:15)
[2017-08-01] MEDS: BENAZEPRIL HCL 10 MG TAB PO SCH ×2 (09:15→23:31)
[2017-08-01] MEDS: AMIODARONE HCL 200 MG TAB PO SCH ×2 (09:15→23:31)
[2017-08-01] MEDS: PANTOPRAZOLE 40 MG/10 ML VIAL IV SCH (09:15)
[2017-08-01] MEDS ORDERED: ADENOSINE 59 MG in GIVE UN-DILUTED 0 ML IV ONE (10:15)
[2017-08-01] MEDS: METOPROLOL SUCCINATE XL 50 MG TAB PO SCH ×2 (11:22→23:32)
[2017-08-01] MEDS ORDERED: hydrALAZINE HCL 25 MG TAB PO PRN (16:30)
[2017-08-01] MEDS: VANCOMYCIN 1,250 MG in D5W 5% 250 ML IV SCH (21:59)
[2017-08-01] MEDS: INSULIN DETEMIR(LEVEMIR) 1unit/0.01ml Soln (100units/ml) SC SCH (22:00)
[2017-08-01] MEDS: APIXABAN 5 MG TAB PO SCH (23:31)
[2017-08-02] MEDS: PIPERACILLIN-TAZOB 3.375GM 50 ML IV SCH ×2 (04:00→10:00)
[2017-08-02 05:16] VITALS: BP 179/83
[2017-08-02] MEDS: DILTIAZEM HCL 60 MG TAB PO SCH ×2 (06:00→15:03)
[2017-08-02] MEDS: LEVOTHYROXINE SODIUM 50 MCG TAB PO SCH (06:34)
[2017-08-02] MEDS: glyBURIDE 5 MG TAB PO SCH (06:34)
[2017-08-02] MEDS: InsuLIN REG 1unit/0.01ml Soln (100units/ml) SC SCH ×2 (06:36→12:58)
[2017-08-02] MEDS: NovoloG Insulin 1unit/0.01ml Soln (100units/ml) SC SCH ×2 (06:37→11:30)
[2017-08-02 07:56] LABS: Basophils # (auto) 0.1 uL; Basophils % (auto) 0.8 % (0.0-2.0); Eosinophils # (auto) 0.1 uL; Eosinophils % (auto) 0.7 % (0.0-7.0); Hematocrit 45.3 % (36.0-46.0); Hemoglobin 15.2 g/dL (12.2-16.2); Lymphocytes # (auto) 0.7 uL; Lymphocytes % (auto) 5.4 % (10.0-50.0); Mean Corpuscular Hemoglobin 28.1 pg (28.0-32.0); Mean Corpuscular Hgb Conc. 33.5 g/dL (32.0-36.0); Mean Corpuscular Volume 83.7 fL (80.0-100.0); Monocytes # (auto) 0.8 uL; Monocytes % (auto) 5.9 % (0.0-12.0); Neutrophils # (auto) 11.5 uL; Neutrophils % (auto) 87.2 % (37.0-80.0); Platelet Count (auto) 212 10^3/uL (140-450); Red Blood Cells 5.41 10^6/uL (4.0-5.20); Red Cell Distribution Width 15.7 % (11.8-14.3); White Blood Cell 13.2 10^3/uL (4.4-10.8)
[2017-08-02] MEDS: Boost Glucose Control 8 Ounces PO SCH ×3 (08:00→12:00)
[2017-08-02 08:06] LABS: BUN/Creatinine Ratio 8.5; Calcium 8.4 mg/dL (8.5-10.1); Magnesium 1.8 mg/dL (1.6-2.6)
[2017-08-02] MEDS ORDERED: ADENOSINE 59 MG in GIVE UN-DILUTED 0 ML IV ONE (08:30)
[2017-08-02 09:00] VITALS: BP 173/92
[2017-08-02 10:10] VITALS: BP 186/107
[2017-08-02] MEDS: FAMOTIDINE (10MG/ML) 2ML VL IV SCH (12:31)
[2017-08-02] MEDS: SODIUM CHLOR 0.9% PF (SALINE LOCK) 10ML VIAL IV SCH (12:32)
[2017-08-02] MEDS: AMIODARONE HCL 200 MG TAB PO SCH (12:32)
[2017-08-02] MEDS: APIXABAN 5 MG TAB PO SCH (12:32)
[2017-08-02] MEDS: PANTOPRAZOLE 40 MG/10 ML VIAL IV SCH (12:32)
[2017-08-02] MEDS: BENAZEPRIL HCL 10 MG TAB PO SCH (12:33)
[2017-08-02] MEDS: METOPROLOL SUCCINATE XL 50 MG TAB PO SCH (12:33)
[2017-08-02 13:00] VITALS: BP 152/83
[2017-08-02] MEDS ORDERED: POTASSIUM CHL 20 Meq TABLET PO ONE (14:00)
[2017-08-02] MEDS ORDERED: LEVEMIR SC (14:03)
[2017-08-02] MEDS ORDERED: AMI200T PO (14:03)
[2017-08-02] MEDS ORDERED: LEVO500T21 PO (14:03)
[2017-08-02] MEDS ORDERED: INSU-450 SUBCUT (14:03)
[2017-08-02 15:27] VITALS: BP 152/53
[2017-08-02 16:00] VITALS: BP 152/53
== END 2017-08-02 16:00 | disposition home or self-care (01) | DRG 871 ==
LOC: EDBD 13:25 → ER 13:25 → TELE 13:26 → ICU WEST 07-30 07:19 → TELE-CENTR 08-01 19:50
PROVIDERS: ADMIT Internal Medicine; ATTEND Nurse Practitioner Acute Care
PROC: 02H633Z Insertion of Infusion Device into Right Atrium, Percutaneous Approach (ICD-10-PCS; 2017-07-30)
PROC: 02HV33Z Insertion of Infusion Device into Superior Vena Cava, Percutaneous Approach (ICD-10-PCS; principal; 2017-08-01)
DX: A41.9 Sepsis, unspecified organism (principal); G92 Toxic encephalopathy; N17.0 Acute kidney failure with tubular necrosis; E11.10 Type 2 diabetes mellitus with ketoacidosis without coma; I47.2 Ventricular tachycardia; E44.0 Moderate protein-calorie malnutrition; E11.21 Type 2 diabetes mellitus with diabetic nephropathy; D68.69 Other thrombophilia; N18.3 Chronic kidney disease, stage 3 (moderate); I13.0 Hypertensive heart and chronic kidney disease with heart failure and stage 1 through stage 4 chronic kidney disease, or unspecified chronic kidney disease; I48.92 Unspecified atrial flutter; N39.0 Urinary tract infection, site not specified; I47.1 Supraventricular tachycardia; E11.22 Type 2 diabetes mellitus with diabetic chronic kidney disease; E03.9 Hypothyroidism, unspecified; E78.5 Hyperlipidemia, unspecified; E87.6 Hypokalemia; F41.9 Anxiety disorder, unspecified; I25.10 Atherosclerotic heart disease of native coronary artery without angina pectoris; I48.91 Unspecified atrial fibrillation; I50.9 Heart failure, unspecified; J44.9 Chronic obstructive pulmonary disease, unspecified; Z87.01 Personal history of pneumonia (recurrent); Z91.19 Patient's noncompliance with other medical treatment and regimen; Z79.899 Other long term (current) drug therapy; Z68.24 Body mass index [BMI] 24.0-24.9, adult; Z71.3 Dietary counseling and surveillance
CPT/HCPCS: 36415; 36569; 36600; 70450; 71045; 78452; 80048; 80053; 80202; 81001; 82010; 82805; 82962; 83036; 83605; 83735; 83880; 83930; 84100; 84132; 84484; 85025; 85610; 85730; 87040; 87070; 87077; 87081; 87086; 87088; 87186; 87205; 93005; 93017; 93306; 96361; 96365; 96367; 96375; 97163; A4565; C9113; J0153; J1815; J2001; J2543; J3480; J3490; J7060

== ENCOUNTER 2017-09-15 17:27 | Inpatient (IN) | payer MEDICARE, MEDICAID ==
[~2017-09-15] VITALS: Ht 162.6 cm; Wt 75.8 kg
[~2017-09-15 17:27] MED LIST changes: +AMI200T PO; -ASPI-492 PO; +DABI150C PO; +INSU-450 SUBCUT; +LEVEMIR SC; +LEVO500T21 PO
[2017-09-15 17:55] LABS: Basophils # (auto) 0.1 uL; Basophils % (auto) 0.8 % (0.0-2.0); Eosinophils # (auto) 0.1 uL; Eosinophils % (auto) 1.9 % (0.0-7.0); Hematocrit 28.4 % (36.0-46.0); Hemoglobin 9.2 g/dL (12.2-16.2); Lymphocytes # (auto) 0.6 uL; Lymphocytes % (auto) 8.6 % (10.0-50.0); Mean Corpuscular Hemoglobin 29.5 pg (28.0-32.0); Mean Corpuscular Hgb Conc. 32.4 g/dL (32.0-36.0); Mean Corpuscular Volume 91.2 fL (80.0-100.0); Monocytes # (auto) 0.3 uL; Monocytes % (auto) 4.2 % (0.0-12.0); Neutrophils # (auto) 6.2 uL; Neutrophils % (auto) 84.5 % (37.0-80.0); Platelet Count (auto) 174 10^3/uL (140-450); Red Blood Cells 3.12 10^6/uL (4.0-5.20); Red Cell Distribution Width 19.7 % (11.8-14.3); White Blood Cell 7.4 10^3/uL (4.4-10.8)
[2017-09-15 18:15] LABS: Alanine Aminotransferase 39 U/L (13-56); Albumin 3.2 g/dL (3.4-5.0); Alkaline Phosphatase 89 U/L (45-117); Anion Gap 10 (5-15); Aspartate Aminotransferase 33 U/L (15-37); BUN/Creatinine Ratio 15.1; Bilirubin, Total 0.7 mg/dL (0.2-1.0); Blood Urea Nitrogen 32 mg/dL (7-18); Calcium 8.2 mg/dL (8.5-10.1); Carbon Dioxide 21 mmol/L (21-32); Chloride 106 mmol/L (98-107); GFR African American 29 mL/min; GFR Non-African American 24 mL/min; Glucose 136 mg/dL (74-106); Potassium 4.6 mmol/L (3.5-5.1); Sodium 137 mmol/L (136-145); Total Protein 6.5 g/dL (6.4-8.2)
[2017-09-15] MEDS: AZITHROMYCIN 500MG/ 250ML 250 ML IV ONE ×2 (20:30→22:30)
[2017-09-15] MEDS: cefTRIAXone 1GM/10ml IVPUSH 10 ML IV ONE ×2 (20:30→22:30)
[2017-09-15 21:23] LABS: Prothrombin Time 65.6 sec (9.37-12.3)
[2017-09-15 21:29] LABS: INR 5.91 (0.9-1.15); Partial Thromboplastin Time 75.2 sec (22.64-33.71)
[2017-09-15] MEDS ORDERED: NITROGLYCERIN 0.4 MG SL TAB SL PRN (23:00)
[2017-09-15] MEDS ORDERED: TEMAZEPAM 15 MG CAP PO PRN (23:00)
[2017-09-15] MEDS ORDERED: ACETAMINOPHEN 325 MG TAB PO PRN (23:00)
[2017-09-15] MEDS ORDERED: MORPHINE SULFATE 4 MG/ML SYR/VIAL IV PRN (23:00)
[2017-09-15] MEDS ORDERED: ONDANSETRON HCL 4 MG/2 ML VIAL IV PRN (23:00)
[2017-09-15] MEDS ORDERED: DEXTROSE (50%) 50ML SYRG IV PRN (23:00)
[2017-09-15] MEDS ORDERED: HYDROcodone-ACET 5/325MG TAB PO PRN (23:00)
[2017-09-16] VITALS (9 sets, daily range): BP systolic 118–165; BP diastolic 65–107
[2017-09-16] MEDS: ACCU-CHEK COMFORT CURVE STRIP VI SCH ×5 (00:22→23:56)
[2017-09-16] MEDS: InsuLIN REG 1unit/0.01ml Soln (100units/ml) SC SCH ×5 (00:23→23:56)
[2017-09-16 01:22] LABS: INR 4.34 (0.9-1.15)
[2017-09-16 01:23] LABS: Partial Thromboplastin Time 70.2 sec (22.64-33.71)
[2017-09-16] MEDS: cloNIDine HCL 0.1 MG TAB PO SCH ×3 (06:01→22:11)
[2017-09-16] MEDS: LEVOTHYROXINE SODIUM 50 MCG TAB PO SCH (06:27)
[2017-09-16 07:57] LABS: Basophils # (auto) 0.1 uL; Basophils % (auto) 1.2 % (0.0-2.0); Eosinophils # (auto) 0.2 uL; Eosinophils % (auto) 2.7 % (0.0-7.0); Hematocrit 29.2 % (36.0-46.0); Hemoglobin 9.6 g/dL (12.2-16.2); Lymphocytes # (auto) 0.6 uL; Mean Corpuscular Hgb Conc. 32.9 g/dL (32.0-36.0); Mean Corpuscular Volume 91.2 fL (80.0-100.0); Monocytes # (auto) 0.4 uL; Monocytes % (auto) 5.3 % (0.0-12.0); Neutrophils # (auto) 5.5 uL; Neutrophils % (auto) 81.8 % (37.0-80.0); Nucleated Red Blood Cells % 0.1 %; Platelet Count (auto) 157 10^3/uL (140-450); Red Blood Cells 3.21 10^6/uL (4.0-5.20); Red Cell Distribution Width 19.6 % (11.8-14.3); White Blood Cell 6.7 10^3/uL (4.4-10.8)
[2017-09-16 08:00] LABS: INR 3.94 (0.9-1.15); Partial Thromboplastin Time 68.3 sec (22.64-33.71); Prothrombin Time 43.5 sec (9.37-12.3)
[2017-09-16 08:01] LABS: Albumin 3.2 g/dL (3.4-5.0); BUN/Creatinine Ratio 16.3; Bilirubin, Total 0.8 mg/dL (0.2-1.0); Calcium 8.3 mg/dL (8.5-10.1); Potassium 4.5 mmol/L (3.5-5.1); Total Protein 6.7 g/dL (6.4-8.2)
[2017-09-16] MEDS: cefTRIAXone 1GM/10ml IVPUSH 10 ML IV SCH (08:51)
[2017-09-16] MEDS ORDERED: ENOXAPARIN SOD 30 MG/0.3 ML SYRINGE SC SCH (10:00)
[2017-09-16] MEDS ORDERED: ENOXAPARIN SOD 40 MG/0.4 ML SYRINGE SC SCH (10:00)
[2017-09-16] MEDS ORDERED: AMIODARONE HCL 200 MG TAB PO SCH (10:00)
[2017-09-16] MEDS: PANTOPRAZOLE 40 MG TAB PO SCH (10:50)
[2017-09-16] MEDS: DABIGATRAN 75 MG CAP PO SCH ×2 (10:50→22:11)
[2017-09-16] MEDS: AZITHROMYCIN 500MG/ 250ML 250 ML IV SCH (10:51)
[2017-09-16 12:12] LABS: INR 3.27 (0.9-1.15); Partial Thromboplastin Time 65.7 sec (22.64-33.71); Prothrombin Time 36.1 sec (9.37-12.3)
[2017-09-16] MEDS: FUROSEMIDE 20 MG/2 ML VIAL IV SCH (18:40)
[2017-09-16] MEDS: ALBUTEROL SULF 2.5 MG/0.5ML(0.5%) NEB SOLN NEB PRN (21:46)
[2017-09-16] MEDS: PRAVASTATIN SODIUM 20 MG TAB PO SCH (22:11)
[2017-09-17] VITALS (7 sets, daily range): BP systolic 143–159; BP diastolic 73–100
[2017-09-17] MEDS: ALBUTEROL SULF 2.5 MG/0.5ML(0.5%) NEB SOLN NEB PRN ×2 (03:01→13:32)
[2017-09-17] MEDS: DOCUSATE SOD 100 MG CAP PO PRN (03:39)
[2017-09-17] MEDS ORDERED: LORazepam 0.5 MG TAB PO ONE (05:15)
[2017-09-17] MEDS: InsuLIN REG 1unit/0.01ml Soln (100units/ml) SC SCH ×4 (06:00→23:56)
[2017-09-17] MEDS: LEVOTHYROXINE SODIUM 50 MCG TAB PO SCH (06:23)
[2017-09-17] MEDS: FUROSEMIDE 20 MG/2 ML VIAL IV SCH ×2 (06:23→17:35)
[2017-09-17] MEDS: cloNIDine HCL 0.1 MG TAB PO SCH ×3 (06:24→22:07)
[2017-09-17] MEDS: ACCU-CHEK COMFORT CURVE STRIP VI SCH ×4 (06:24→23:56)
[2017-09-17] MEDS: cefTRIAXone 1GM/10ml IVPUSH 10 ML IV SCH (08:56)
[2017-09-17 09:55] LABS: Basophils # (auto) 0 uL; Basophils % (auto) 0.3 % (0.0-2.0); Eosinophils # (auto) 0.1 uL; Eosinophils % (auto) 1.6 % (0.0-7.0); Hematocrit 30.8 % (36.0-46.0); Hemoglobin 9.8 g/dL (12.2-16.2); Lymphocytes # (auto) 0.4 uL; Mean Corpuscular Hemoglobin 29.5 pg (28.0-32.0); Mean Corpuscular Hgb Conc. 31.9 g/dL (32.0-36.0); Mean Corpuscular Volume 92.5 fL (80.0-100.0); Monocytes # (auto) 0.3 uL; Monocytes % (auto) 4.3 % (0.0-12.0); Neutrophils # (auto) 6.3 uL; Neutrophils % (auto) 87.8 % (37.0-80.0); Platelet Count (auto) 157 10^3/uL (140-450); Red Blood Cells 3.33 10^6/uL (4.0-5.20); White Blood Cell 7.1 10^3/uL (4.4-10.8)
[2017-09-17] MEDS: DABIGATRAN 75 MG CAP PO SCH ×2 (10:14→22:06)
[2017-09-17 10:15] LABS: Albumin 3.1 g/dL (3.4-5.0); BUN/Creatinine Ratio 17.9; Bilirubin, Total 0.6 mg/dL (0.2-1.0); Potassium 4.3 mmol/L (3.5-5.1); Total Protein 6.7 g/dL (6.4-8.2)
[2017-09-17] MEDS: DILTIAZEM HCL 120MG ER CAP PO SCH (10:15)
[2017-09-17] MEDS: AZITHROMYCIN 500MG/ 250ML 250 ML IV SCH (10:16)
[2017-09-17] MEDS: PANTOPRAZOLE 40 MG TAB PO SCH (10:22)
[2017-09-17] MEDS ORDERED: METOLAZONE 5 MG TAB PO ONE (10:30)
[2017-09-17] MEDS ORDERED: guaiFENesin-DM 100/10mg/5ml SYR PO PRN ×2 (15:00)
[2017-09-17] MEDS: PRAVASTATIN SODIUM 20 MG TAB PO SCH (22:07)
[2017-09-18] VITALS (7 sets, daily range): BP systolic 141–167; BP diastolic 75–99
[2017-09-18] MEDS: FUROSEMIDE 20 MG/2 ML VIAL IV SCH ×2 (05:52→18:44)
[2017-09-18] MEDS: InsuLIN REG 1unit/0.01ml Soln (100units/ml) SC SCH ×3 (05:53→17:55)
[2017-09-18] MEDS: cloNIDine HCL 0.1 MG TAB PO SCH ×3 (05:53→21:57)
[2017-09-18] MEDS: ACCU-CHEK COMFORT CURVE STRIP VI SCH ×3 (05:53→17:55)
[2017-09-18] MEDS: DOCUSATE SOD 100 MG CAP PO PRN (05:54)
[2017-09-18] MEDS: LEVOTHYROXINE SODIUM 50 MCG TAB PO SCH (06:39)
[2017-09-18] MEDS: ALBUTEROL SULF 2.5 MG/0.5ML(0.5%) NEB SOLN NEB PRN (06:56)
[2017-09-18] MEDS: DABIGATRAN 75 MG CAP PO SCH ×2 (11:03→21:56)
[2017-09-18] MEDS: PANTOPRAZOLE 40 MG TAB PO SCH (11:03)
[2017-09-18] MEDS: DILTIAZEM HCL 120MG ER CAP PO SCH (11:05)
[2017-09-18] MEDS: AZITHROMYCIN 500MG/ 250ML 250 ML IV SCH (11:06)
[2017-09-18] MEDS: cefTRIAXone 1GM/10ml IVPUSH 10 ML IV SCH (11:15)
[2017-09-18 12:02] LABS: Basophils # (auto) 0 uL; Basophils % (auto) 0.6 % (0.0-2.0); Eosinophils # (auto) 0.1 uL; Eosinophils % (auto) 1.7 % (0.0-7.0); Hematocrit 32.7 % (36.0-46.0); Hemoglobin 10.7 g/dL (12.2-16.2); Lymphocytes # (auto) 0.4 uL; Lymphocytes % (auto) 4.7 % (10.0-50.0); Mean Corpuscular Hgb Conc. 32.8 g/dL (32.0-36.0); Mean Corpuscular Volume 91.4 fL (80.0-100.0); Monocytes # (auto) 0.4 uL; Monocytes % (auto) 4.4 % (0.0-12.0); Neutrophils # (auto) 7.5 uL; Neutrophils % (auto) 88.6 % (37.0-80.0); Nucleated Red Blood Cells % 0.1 %; Platelet Count (auto) 232 10^3/uL (140-450); Red Blood Cells 3.58 10^6/uL (4.0-5.20); Red Cell Distribution Width 19.4 % (11.8-14.3); White Blood Cell 8.4 10^3/uL (4.4-10.8)
[2017-09-18 12:24] LABS: Albumin 3.8 g/dL (3.4-5.0); BUN/Creatinine Ratio 14.9; Bilirubin, Total 0.9 mg/dL (0.2-1.0); Calcium 8.7 mg/dL (8.5-10.1); Potassium 3.8 mmol/L (3.5-5.1)
[2017-09-18] MEDS: PRAVASTATIN SODIUM 20 MG TAB PO SCH (21:56)
[2017-09-18] MEDS: DOXYCYCLINE 100 MG TAB/CAP PO SCH (21:56)
[2017-09-19] MEDS: ACCU-CHEK COMFORT CURVE STRIP VI SCH ×3 (00:03→12:14)
[2017-09-19] MEDS: InsuLIN REG 1unit/0.01ml Soln (100units/ml) SC SCH ×3 (00:03→12:00)
[2017-09-19 05:00] VITALS: BP 138/77
[2017-09-19] MEDS: FUROSEMIDE 20 MG/2 ML VIAL IV SCH (06:27)
[2017-09-19] MEDS: cloNIDine HCL 0.1 MG TAB PO SCH ×2 (06:28→14:43)
[2017-09-19 06:31] LABS: Basophils # (auto) 0 uL; Basophils % (auto) 0.5 % (0.0-2.0); Eosinophils # (auto) 0.2 uL; Hemoglobin 10.4 g/dL (12.2-16.2); Lymphocytes # (auto) 0.5 uL; Lymphocytes % (auto) 9.8 % (10.0-50.0); Mean Corpuscular Hemoglobin 30.1 pg (28.0-32.0); Mean Corpuscular Hgb Conc. 33.5 g/dL (32.0-36.0); Mean Corpuscular Volume 89.9 fL (80.0-100.0); Monocytes # (auto) 0.3 uL; Monocytes % (auto) 5.4 % (0.0-12.0); Neutrophils # (auto) 4.5 uL; Neutrophils % (auto) 81.3 % (37.0-80.0); Nucleated Red Blood Cells % 0.1 %; Platelet Count (auto) 175 10^3/uL (140-450); Red Blood Cells 3.45 10^6/uL (4.0-5.20); Red Cell Distribution Width 19.2 % (11.8-14.3); White Blood Cell 5.6 10^3/uL (4.4-10.8)
[2017-09-19] MEDS: LEVOTHYROXINE SODIUM 50 MCG TAB PO SCH (06:40)
[2017-09-19 06:54] LABS: Albumin 3.2 g/dL (3.4-5.0); BUN/Creatinine Ratio 14.3; Bilirubin, Total 0.7 mg/dL (0.2-1.0); Calcium 8.8 mg/dL (8.5-10.1); Potassium 3.7 mmol/L (3.5-5.1); Total Protein 6.8 g/dL (6.4-8.2)
[2017-09-19 08:00] VITALS: BP 141/80
[2017-09-19 09:00] VITALS: BP 141/80
[2017-09-19] MEDS: DILTIAZEM HCL 120MG ER CAP PO SCH (10:22)
[2017-09-19] MEDS: DOXYCYCLINE 100 MG TAB/CAP PO SCH (10:22)
[2017-09-19] MEDS: PANTOPRAZOLE 40 MG TAB PO SCH (10:22)
[2017-09-19] MEDS: cefTRIAXone 1GM/10ml IVPUSH 10 ML IV SCH (10:23)
[2017-09-19] MEDS: DABIGATRAN 75 MG CAP PO SCH (10:23)
[2017-09-19 11:44] VITALS: BP 141/80
[2017-09-19 13:00] VITALS: BP 164/76
== END 2017-09-19 15:45 | disposition home health service (06) | DRG 291 ==
LOC: EDBD 17:27 → ER 17:30 → TELE 17:31 → TELE-WESTW 09-16 01:00
PROVIDERS: ADMIT Nurse Practitioner; ATTEND Family Medicine
DX: I13.0 Hypertensive heart and chronic kidney disease with heart failure and stage 1 through stage 4 chronic kidney disease, or unspecified chronic kidney disease (principal); J18.1 Lobar pneumonia, unspecified organism; N18.4 Chronic kidney disease, stage 4 (severe); I27.20 Pulmonary hypertension, unspecified; E11.22 Type 2 diabetes mellitus with diabetic chronic kidney disease; R06.03 Acute respiratory distress; I48.2 Chronic atrial fibrillation; I71.2 Thoracic aortic aneurysm, without rupture; I50.43 Acute on chronic combined systolic (congestive) and diastolic (congestive) heart failure; J44.0 Chronic obstructive pulmonary disease with (acute) lower respiratory infection; J44.1 Chronic obstructive pulmonary disease with (acute) exacerbation; I50.810 Right heart failure, unspecified; D63.8 Anemia in other chronic diseases classified elsewhere; E78.00 Pure hypercholesterolemia, unspecified; E78.5 Hyperlipidemia, unspecified; I25.10 Atherosclerotic heart disease of native coronary artery without angina pectoris; F41.9 Anxiety disorder, unspecified; J20.9 Acute bronchitis, unspecified; E03.9 Hypothyroidism, unspecified; Z79.01 Long term (current) use of anticoagulants; Z79.4 Long term (current) use of insulin; Z82.0 Family history of epilepsy and other diseases of the nervous system; Z83.3 Family history of diabetes mellitus; Z82.49 Family history of ischemic heart disease and other diseases of the circulatory system
CPT/HCPCS: 36415; 36600; 71045; 71046; 71250; 80053; 82805; 82962; 83605; 83735; 83880; 84484; 85025; 85610; 85730; 87040; 87070; 87081; 87205; 87804; 93005; 93306; 94640; 94761; 96374; 96375; J1815

== ENCOUNTER 2017-09-25 00:43 | Inpatient (IN) | payer MEDICARE, MEDICAID ==
[~2017-09-25] VITALS: Ht 152.4 cm; Wt 74.9 kg
[2017-09-25 01:30] LABS: Basophils # (auto) 0 uL; Basophils % (auto) 0.2 % (0.0-2.0); Eosinophils # (auto) 0.1 uL; Hemoglobin 10.1 g/dL (12.2-16.2); Lymphocytes # (auto) 0.7 uL; Lymphocytes % (auto) 5.5 % (10.0-50.0); Mean Corpuscular Hgb Conc. 32.7 g/dL (32.0-36.0); Mean Corpuscular Volume 88.7 fL (80.0-100.0); Monocytes # (auto) 0.4 uL; Monocytes % (auto) 3.6 % (0.0-12.0); Neutrophils # (auto) 10.6 uL; Neutrophils % (auto) 89.7 % (37.0-80.0); Platelet Count (auto) 207 10^3/uL (140-450); Red Blood Cells 3.49 10^6/uL (4.0-5.20); Red Cell Distribution Width 18.1 % (11.8-14.3); White Blood Cell 11.8 10^3/uL (4.4-10.8)
[2017-09-25 01:48] LABS: INR 2.85 (0.9-1.15); Prothrombin Time 31.4 sec (9.37-12.3)
[2017-09-25 01:50] LABS: Partial Thromboplastin Time 73.5 sec (22.64-33.71)
[2017-09-25] MEDS ORDERED: ENALAPRILAT 1.25 MG/ML-1ML VIAL IV ONE (02:15)
[2017-09-25 02:36] LABS: Alanine Aminotransferase 27 U/L (13-56); Albumin 3.3 g/dL (3.4-5.0); Alkaline Phosphatase 108 U/L (45-117); Anion Gap 11 (5-15); Aspartate Aminotransferase 29 U/L (15-37); BUN/Creatinine Ratio 12.8; Bilirubin, Total 0.7 mg/dL (0.2-1.0); Blood Urea Nitrogen 25 mg/dL (7-18); Calcium 7.7 mg/dL (8.5-10.1); Carbon Dioxide 23 mmol/L (21-32); Chloride 97 mmol/L (98-107); GFR African American 31 mL/min; GFR Non-African American 26 mL/min; Glucose 190 mg/dL (74-106); Sodium 131 mmol/L (136-145); Total Protein 7.5 g/dL (6.4-8.2)
[2017-09-25] MEDS: NITROGLYCERIN 50MG/250ML 250 ML IV SCH ×2 (02:49→12:12)
[2017-09-25] MEDS ORDERED: NITROGLYCERIN 0.4 MG SL TAB SL PRN (03:45)
[2017-09-25] MEDS ORDERED: ONDANSETRON HCL 4 MG/2 ML VIAL IV PRN (03:45)
[2017-09-25] MEDS ORDERED: HYDROcodone-ACET 5/325MG TAB PO PRN (03:45)
[2017-09-25] MEDS ORDERED: DEXTROSE (50%) 50ML SYRG IV PRN (03:45)
[2017-09-25] MEDS ORDERED: MORPHINE SULFATE 4 MG/ML SYR/VIAL IV PRN (03:45)
[2017-09-25] MEDS ORDERED: ACETAMINOPHEN 500 MG TAB PO PRN (03:45)
[2017-09-25] MEDS ORDERED: FUROSEMIDE 20 MG/2 ML VIAL IV ONE (04:00)
[2017-09-25] MEDS ORDERED: PROMETHAZINE W/CODEINE 5 ML ORAL SYRUP PO ONE (05:30)
[2017-09-25] MEDS: cloNIDine HCL 0.1 MG TAB PO SCH ×3 (06:08→21:36)
[2017-09-25] MEDS: IPRATROPIUM BROM 0.5 MG/2.5ML INH SOL NEB SCH ×3 (06:30→20:09)
[2017-09-25] MEDS: ALBUTEROL SULF 2.5 MG/0.5ML(0.5%) NEB SOLN NEB SCH ×3 (06:30→20:09)
[2017-09-25] MEDS: LEVOTHYROXINE SODIUM 50 MCG TAB PO SCH (07:02)
[2017-09-25] MEDS: ACCU-CHEK COMFORT CURVE STRIP VI SCH ×4 (07:03→21:36)
[2017-09-25] MEDS: InsuLIN REG 1unit/0.01ml Soln (100units/ml) SC SCH ×4 (07:03→21:55)
[2017-09-25] MEDS ORDERED: FUROSEMIDE 40 MG/4 ML VIAL IV SCH (10:00)
[2017-09-25] MEDS: AMIODARONE HCL 200 MG TAB PO SCH (10:17)
[2017-09-25] MEDS: BENAZEPRIL HCL 10 MG TAB PO SCH (10:18)
[2017-09-25] MEDS: guaiFENesin-CODEINE LIQUID 5 ML UD PO PRN ×3 (10:18→20:14)
[2017-09-25] MEDS: METOPROLOL SUCCINATE XL 50 MG TAB PO SCH (10:18)
[2017-09-25 10:57] LABS: Urine Bacteria NONE SEEN /hpf (None Seen); Urine Blood Negative /uL (Negative); Urine Specific Gravity 1.004 (1.001-1.035); Urine WBC 1 /hpf (0 - 5)
[2017-09-25 11:18] LABS: Basophils # (auto) 0.1 uL; Basophils % (auto) 0.6 % (0.0-2.0); Eosinophils # (auto) 0.1 uL; Eosinophils % (auto) 0.9 % (0.0-7.0); Hematocrit 27.7 % (36.0-46.0); Hemoglobin 9.5 g/dL (12.2-16.2); Lymphocytes # (auto) 0.7 uL; Lymphocytes % (auto) 7.2 % (10.0-50.0); Mean Corpuscular Hgb Conc. 34.2 g/dL (32.0-36.0); Mean Corpuscular Volume 87.9 fL (80.0-100.0); Monocytes # (auto) 0.5 uL; Monocytes % (auto) 4.8 % (0.0-12.0); Neutrophils # (auto) 8.8 uL; Neutrophils % (auto) 86.5 % (37.0-80.0); Platelet Count (auto) 205 10^3/uL (140-450); Red Blood Cells 3.15 10^6/uL (4.0-5.20); Red Cell Distribution Width 18.2 % (11.8-14.3); White Blood Cell 10.2 10^3/uL (4.4-10.8)
[2017-09-25 11:32] LABS: INR 1.89 (0.9-1.15); Partial Thromboplastin Time 63.9 sec (22.64-33.71); Prothrombin Time 20.7 sec (9.37-12.3)
[2017-09-25 11:36] LABS: Albumin 3.2 g/dL (3.4-5.0); BUN/Creatinine Ratio 12.8; Bilirubin, Total 0.7 mg/dL (0.2-1.0); Calcium 7.7 mg/dL (8.5-10.1); Potassium 3.7 mmol/L (3.5-5.1); Total Protein 7.2 g/dL (6.4-8.2)
[2017-09-25] MEDS ORDERED: LEVOFLOXACIN 500MG 100 ML IV ONE (15:15)
[2017-09-25] MEDS: FUROSEMIDE 40 MG/4 ML VIAL IV SCH (18:11)
[2017-09-25] MEDS: POTASSIUM CHL 10% (20 MEQ/15ML) 15ml ORAL SOLN GT SCH (21:35)
[2017-09-25 22:00] VITALS: BP 159/82
[2017-09-25 22:03] VITALS: BP 159/82
[2017-09-26] MEDS: ALBUTEROL SULF 2.5 MG/0.5ML(0.5%) NEB SOLN NEB SCH ×5 (01:16→19:07)
[2017-09-26] MEDS: IPRATROPIUM BROM 0.5 MG/2.5ML INH SOL NEB SCH ×5 (01:16→19:07)
[2017-09-26 06:01] LABS: Basophils # (auto) 0 uL; Basophils % (auto) 0.4 % (0.0-2.0); Eosinophils # (auto) 0.1 uL; Eosinophils % (auto) 0.7 % (0.0-7.0); Hemoglobin 9.7 g/dL (12.2-16.2); Lymphocytes # (auto) 0.5 uL; Lymphocytes % (auto) 5.3 % (10.0-50.0); Mean Corpuscular Hemoglobin 29.6 pg (28.0-32.0); Mean Corpuscular Hgb Conc. 33.3 g/dL (32.0-36.0); Mean Corpuscular Volume 88.9 fL (80.0-100.0); Monocytes # (auto) 0.6 uL; Monocytes % (auto) 5.5 % (0.0-12.0); Neutrophils % (auto) 88.1 % (37.0-80.0); Platelet Count (auto) 188 10^3/uL (140-450); Red Blood Cells 3.26 10^6/uL (4.0-5.20); Red Cell Distribution Width 17.9 % (11.8-14.3); White Blood Cell 10.2 10^3/uL (4.4-10.8)
[2017-09-26] MEDS: cloNIDine HCL 0.1 MG TAB PO SCH ×3 (06:19→21:55)
[2017-09-26] MEDS: FUROSEMIDE 40 MG/4 ML VIAL IV SCH ×2 (06:19→17:30)
[2017-09-26] MEDS: ACCU-CHEK COMFORT CURVE STRIP VI SCH ×4 (06:20→21:56)
[2017-09-26] MEDS: LEVOTHYROXINE SODIUM 50 MCG TAB PO SCH (06:20)
[2017-09-26 06:26] LABS: BUN/Creatinine Ratio 11.3; Potassium 4.6 mmol/L (3.5-5.1)
[2017-09-26 06:27] LABS: Bilirubin, Total 0.7 mg/dL (0.2-1.0); Total Protein 6.7 g/dL (6.4-8.2)
[2017-09-26] MEDS: InsuLIN REG 1unit/0.01ml Soln (100units/ml) SC SCH ×4 (06:34→21:55)
[2017-09-26 08:00] VITALS: BP 148/88
[2017-09-26 09:01] VITALS: BP 148/88
[2017-09-26] MEDS ORDERED: LEVOFLOXACIN 500MG 100 ML IV SCH (10:00)
[2017-09-26] MEDS: AMIODARONE HCL 200 MG TAB PO SCH (10:29)
[2017-09-26] MEDS: METOPROLOL SUCCINATE XL 50 MG TAB PO SCH (10:29)
[2017-09-26] MEDS: BENAZEPRIL HCL 10 MG TAB PO SCH (10:30)
[2017-09-26] MEDS: POTASSIUM CHL 10% (20 MEQ/15ML) 15ml ORAL SOLN GT SCH ×2 (10:30→21:54)
[2017-09-26] MEDS: LEVOFLOXACIN 250MG 50 ML IV SCH (10:30)
[2017-09-26] MEDS ORDERED: PRADAXA 150 MG PO ONE (11:15)
[2017-09-26 12:56] VITALS: BP 145/88
[2017-09-26] MEDS ORDERED: DABIGATRAN 75 MG CAP PO ONE (16:00)
[2017-09-26 17:00] VITALS: BP 130/79
[2017-09-26 21:40] VITALS: BP 140/83
[2017-09-26] MEDS: DABIGATRAN 75 MG CAP PO SCH (21:55)
[2017-09-27 05:00] VITALS: BP 130/74
[2017-09-27 05:54] LABS: Basophils # (auto) 0.1 uL; Basophils % (auto) 0.7 % (0.0-2.0); Eosinophils # (auto) 0.1 uL; Eosinophils % (auto) 1.6 % (0.0-7.0); Hematocrit 28.6 % (36.0-46.0); Hemoglobin 9.6 g/dL (12.2-16.2); Lymphocytes # (auto) 0.6 uL; Lymphocytes % (auto) 7.4 % (10.0-50.0); Mean Corpuscular Hemoglobin 29.6 pg (28.0-32.0); Mean Corpuscular Hgb Conc. 33.6 g/dL (32.0-36.0); Mean Corpuscular Volume 88.3 fL (80.0-100.0); Monocytes # (auto) 0.4 uL; Monocytes % (auto) 5.6 % (0.0-12.0); Neutrophils # (auto) 6.5 uL; Neutrophils % (auto) 84.7 % (37.0-80.0); Platelet Count (auto) 196 10^3/uL (140-450); Red Blood Cells 3.24 10^6/uL (4.0-5.20); Red Cell Distribution Width 17.7 % (11.8-14.3); White Blood Cell 7.7 10^3/uL (4.4-10.8)
[2017-09-27 06:13] LABS: Albumin 2.7 g/dL (3.4-5.0); BUN/Creatinine Ratio 10.9; Bilirubin, Total 0.7 mg/dL (0.2-1.0); Calcium 7.9 mg/dL (8.5-10.1); Potassium 4.1 mmol/L (3.5-5.1); Total Protein 6.5 g/dL (6.4-8.2)
[2017-09-27] MEDS: ALBUTEROL SULF 2.5 MG/0.5ML(0.5%) NEB SOLN NEB SCH ×3 (06:23→18:44)
[2017-09-27] MEDS: IPRATROPIUM BROM 0.5 MG/2.5ML INH SOL NEB SCH ×3 (06:23→18:44)
[2017-09-27] MEDS: FUROSEMIDE 40 MG/4 ML VIAL IV SCH ×2 (06:23→18:14)
[2017-09-27] MEDS: ACCU-CHEK COMFORT CURVE STRIP VI SCH ×4 (06:24→22:00)
[2017-09-27] MEDS: InsuLIN REG 1unit/0.01ml Soln (100units/ml) SC SCH ×4 (06:24→22:00)
[2017-09-27] MEDS: LEVOTHYROXINE SODIUM 50 MCG TAB PO SCH (06:24)
[2017-09-27] MEDS: cloNIDine HCL 0.1 MG TAB PO SCH ×3 (06:24→23:00)
[2017-09-27 08:00] VITALS: BP 145/73
[2017-09-27] MEDS: METOPROLOL SUCCINATE XL 50 MG TAB PO SCH (08:50)
[2017-09-27] MEDS: BENAZEPRIL HCL 10 MG TAB PO SCH (08:51)
[2017-09-27 09:00] VITALS: BP 145/73
[2017-09-27] MEDS: DABIGATRAN 75 MG CAP PO SCH ×2 (10:00→22:00)
[2017-09-27] MEDS ORDERED: PRADAXA 150 MG PO SCH (10:00)
[2017-09-27] MEDS ORDERED: SODIUM CHL 0.9% 50 ML ONE ×2 (11:18→11:19)
[2017-09-27] MEDS ORDERED: MIDAZOLAM HCL 1MG/1ML-2 ML VIAL ONE (11:18)
[2017-09-27] MEDS ORDERED: fentaNYL CITRATE 100 MCG/2 ML VL ONE (11:18)
[2017-09-27] MEDS ORDERED: ANGIOMAX 250 MG VIAL IV ONE (11:18)
[2017-09-27] MEDS ORDERED: LIDOCAINE HCL 2 %PF INJ 10ML AMP IJ ONE (11:24)
[2017-09-27] MEDS ORDERED: IOHEXOL 350 MG/ML 100ML IJ ONE (11:24)
[2017-09-27] MEDS ORDERED: IODIXANOL 320MG/ML 100ML BTL IV ONE (11:44)
[2017-09-27] MEDS ORDERED: CLOPIDOGREL 300 MG TAB ONE (12:00)
[2017-09-27] MEDS: LEVOFLOXACIN 250MG 50 ML IV SCH (16:07)
[2017-09-27] MEDS: POTASSIUM CHL 10% (20 MEQ/15ML) 15ml ORAL SOLN GT SCH ×2 (16:08→23:00)
[2017-09-27] MEDS: AMIODARONE HCL 200 MG TAB PO SCH (16:08)
[2017-09-27 17:00] VITALS: BP 157/73
[2017-09-27 20:00] VITALS: BP 157/73
[2017-09-27 22:00] VITALS: BP 122/70
[2017-09-28] VITALS (7 sets, daily range): BP systolic 132–144; BP diastolic 71–87
[2017-09-28] MEDS: ALBUTEROL SULF 2.5 MG/0.5ML(0.5%) NEB SOLN NEB SCH ×4 (00:15→19:11)
[2017-09-28] MEDS: IPRATROPIUM BROM 0.5 MG/2.5ML INH SOL NEB SCH ×4 (00:15→19:12)
[2017-09-28] MEDS: LEVOTHYROXINE SODIUM 50 MCG TAB PO SCH (06:19)
[2017-09-28] MEDS: cloNIDine HCL 0.1 MG TAB PO SCH ×3 (06:20→22:12)
[2017-09-28] MEDS: FUROSEMIDE 40 MG/4 ML VIAL IV SCH ×2 (06:21→17:37)
[2017-09-28] MEDS: InsuLIN REG 1unit/0.01ml Soln (100units/ml) SC SCH ×4 (06:55→22:18)
[2017-09-28] MEDS: ACCU-CHEK COMFORT CURVE STRIP VI SCH ×4 (06:55→22:18)
[2017-09-28 08:36] LABS: Basophils # (auto) 0.1 uL; Basophils % (auto) 0.5 % (0.0-2.0); Eosinophils # (auto) 0.2 uL; Eosinophils % (auto) 1.7 % (0.0-7.0); Hematocrit 32.2 % (36.0-46.0); Hemoglobin 10.8 g/dL (12.2-16.2); Lymphocytes # (auto) 0.8 uL; Lymphocytes % (auto) 7.6 % (10.0-50.0); Mean Corpuscular Hemoglobin 29.3 pg (28.0-32.0); Mean Corpuscular Hgb Conc. 33.5 g/dL (32.0-36.0); Mean Corpuscular Volume 87.5 fL (80.0-100.0); Monocytes # (auto) 0.5 uL; Monocytes % (auto) 5.3 % (0.0-12.0); Neutrophils # (auto) 8.7 uL; Neutrophils % (auto) 84.9 % (37.0-80.0); Platelet Count (auto) 252 10^3/uL (140-450); Red Blood Cells 3.68 10^6/uL (4.0-5.20); Red Cell Distribution Width 17.8 % (11.8-14.3); White Blood Cell 10.3 10^3/uL (4.4-10.8)
[2017-09-28 08:56] LABS: Albumin 2.9 g/dL (3.4-5.0); Bilirubin, Total 0.5 mg/dL (0.2-1.0); Calcium 8.3 mg/dL (8.5-10.1); Total Protein 7.2 g/dL (6.4-8.2)
[2017-09-28] MEDS: CLOPIDOGREL BISULFATE 75 MG TAB PO SCH (09:41)
[2017-09-28] MEDS: AMIODARONE HCL 200 MG TAB PO SCH (09:41)
[2017-09-28] MEDS: BENAZEPRIL HCL 10 MG TAB PO SCH (09:41)
[2017-09-28] MEDS: DABIGATRAN 75 MG CAP PO SCH ×2 (09:42→22:12)
[2017-09-28] MEDS: METOPROLOL SUCCINATE XL 50 MG TAB PO SCH (09:42)
[2017-09-28] MEDS: LEVOFLOXACIN 250MG 50 ML IV SCH (09:42)
[2017-09-28] MEDS: POTASSIUM CHL 10% (20 MEQ/15ML) 15ml ORAL SOLN GT SCH ×2 (09:44→22:18)
[2017-09-29 05:00] VITALS: BP 134/70
[2017-09-29] MEDS: IPRATROPIUM BROM 0.5 MG/2.5ML INH SOL NEB SCH ×3 (05:53→12:04)
[2017-09-29] MEDS: ALBUTEROL SULF 2.5 MG/0.5ML(0.5%) NEB SOLN NEB SCH ×3 (05:53→12:04)
[2017-09-29] MEDS: FUROSEMIDE 40 MG/4 ML VIAL IV SCH (06:42)
[2017-09-29] MEDS: LEVOTHYROXINE SODIUM 50 MCG TAB PO SCH (06:42)
[2017-09-29] MEDS: cloNIDine HCL 0.1 MG TAB PO SCH (06:45)
[2017-09-29] MEDS: InsuLIN REG 1unit/0.01ml Soln (100units/ml) SC SCH ×2 (07:13→12:18)
[2017-09-29] MEDS: ACCU-CHEK COMFORT CURVE STRIP VI SCH ×2 (07:13→11:30)
[2017-09-29 09:00] VITALS: BP 133/93
[2017-09-29] MEDS: LEVOFLOXACIN 250MG 50 ML IV SCH (10:13)
[2017-09-29] MEDS: DABIGATRAN 75 MG CAP PO SCH (10:13)
[2017-09-29] MEDS: BENAZEPRIL HCL 10 MG TAB PO SCH (10:14)
[2017-09-29] MEDS: CLOPIDOGREL BISULFATE 75 MG TAB PO SCH (10:14)
[2017-09-29] MEDS: METOPROLOL SUCCINATE XL 50 MG TAB PO SCH (10:15)
[2017-09-29] MEDS: AMIODARONE HCL 200 MG TAB PO SCH (10:15)
[2017-09-29] MEDS: POTASSIUM CHL 10% (20 MEQ/15ML) 15ml ORAL SOLN GT SCH (10:16)
[2017-09-29 12:52] VITALS: BP 133/93
== END 2017-09-29 13:45 | disposition home or self-care (01) | DRG 246 ==
LOC: EDBD 00:43 → ER 00:51 → TELE 00:52 → TELE-WESTW 15:40
PROVIDERS: ADMIT Nurse Practitioner Family; ATTEND Family Medicine
PROC: 027034Z Dilation of Coronary Artery, One Artery with Drug-eluting Intraluminal Device, Percutaneous Approach (ICD-10-PCS; principal; 2017-09-28)
PROC: 4A023N7 Measurement of Cardiac Sampling and Pressure, Left Heart, Percutaneous Approach (ICD-10-PCS; 2017-09-28)
PROC: B2111ZZ Fluoroscopy of Multiple Coronary Arteries using Low Osmolar Contrast (ICD-10-PCS; 2017-09-28)
DX: I25.10 Atherosclerotic heart disease of native coronary artery without angina pectoris (principal); I50.43 Acute on chronic combined systolic (congestive) and diastolic (congestive) heart failure; E11.22 Type 2 diabetes mellitus with diabetic chronic kidney disease; I48.91 Unspecified atrial fibrillation; E87.1 Hypo-osmolality and hyponatremia; I13.0 Hypertensive heart and chronic kidney disease with heart failure and stage 1 through stage 4 chronic kidney disease, or unspecified chronic kidney disease; J44.1 Chronic obstructive pulmonary disease with (acute) exacerbation; N18.3 Chronic kidney disease, stage 3 (moderate); D64.9 Anemia, unspecified; E78.5 Hyperlipidemia, unspecified; E89.0 Postprocedural hypothyroidism; F41.9 Anxiety disorder, unspecified; Z79.01 Long term (current) use of anticoagulants; Z79.4 Long term (current) use of insulin; Z87.01 Personal history of pneumonia (recurrent); Z95.5 Presence of coronary angioplasty implant and graft; Z79.899 Other long term (current) drug therapy; Z82.0 Family history of epilepsy and other diseases of the nervous system; Z82.49 Family history of ischemic heart disease and other diseases of the circulatory system
CPT/HCPCS: 36415; 71045; 80053; 81001; 82962; 83036; 83605; 83880; 84484; 85025; 85610; 85730; 87040; 87081; 87804; 92928; 93005; 93458; 94640; 96374; 96375; 99152; 99291; C1874; C1887; J1815; J1956; J2250; Q9967

== ENCOUNTER 2017-09-30 10:45 | Inpatient (IN) | payer MEDICARE, OTHER ==
[~2017-09-30] VITALS: Ht 162.6 cm; Wt 71.6 kg
[2017-09-30 11:13] LABS: Basophils # (auto) 0.1 uL; Basophils % (auto) 0.8 % (0.0-2.0); Eosinophils # (auto) 0.2 uL; Hematocrit 30.1 % (36.0-46.0); Hemoglobin 9.6 g/dL (12.2-16.2); Lymphocytes # (auto) 0.7 uL; Lymphocytes % (auto) 7.2 % (10.0-50.0); Mean Corpuscular Hemoglobin 28.2 pg (28.0-32.0); Monocytes # (auto) 0.5 uL; Monocytes % (auto) 5.6 % (0.0-12.0); Neutrophils # (auto) 7.9 uL; Neutrophils % (auto) 84.4 % (37.0-80.0); Platelet Count (auto) 276 10^3/uL (140-450); Red Blood Cells 3.42 10^6/uL (4.0-5.20); Red Cell Distribution Width 17.2 % (11.8-14.3); White Blood Cell 9.4 10^3/uL (4.4-10.8)
[2017-09-30 11:30] LABS: Alanine Aminotransferase 13 U/L (13-56); Albumin 2.6 g/dL (3.4-5.0); Alkaline Phosphatase 74 U/L (45-117); Anion Gap 12 (5-15); Aspartate Aminotransferase 17 U/L (15-37); BUN/Creatinine Ratio 9.3; Bilirubin, Total 0.3 mg/dL (0.2-1.0); Blood Urea Nitrogen 26 mg/dL (7-18); Calcium 7.7 mg/dL (8.5-10.1); Carbon Dioxide 22 mmol/L (21-32); Chloride 97 mmol/L (98-107); GFR African American 21 mL/min; GFR Non-African American 17 mL/min; Glucose 117 mg/dL (74-106); Potassium 3.7 mmol/L (3.5-5.1); Sodium 131 mmol/L (136-145); Total Protein 6.4 g/dL (6.4-8.2)
[2017-09-30 14:13] LABS: INR 3.64 (0.9-1.15); Prothrombin Time 40.2 sec (9.37-12.3)
[2017-09-30 14:17] LABS: Partial Thromboplastin Time 78.3 sec (22.64-33.71)
[2017-09-30] MEDS ORDERED: DEXTROSE (50%) 50ML SYRG IV ONE (16:00)
[2017-09-30] MEDS ORDERED: cloNIDine HCL 0.1 MG TAB PO PRN (17:00)
[2017-09-30] MEDS ORDERED: DEXTROSE (50%) 50ML SYRG IV PRN (17:00)
[2017-09-30] MEDS: ACCU-CHEK COMFORT CURVE STRIP VI SCH ×2 (17:13→22:05)
[2017-09-30] MEDS ORDERED: MORPHINE SULFATE 4 MG/ML SYR/VIAL IV PRN ×2 (17:15)
[2017-09-30] MEDS ORDERED: DOCUSATE SOD 100 MG CAP PO PRN (17:15)
[2017-09-30] MEDS ORDERED: ACETAMINOPHEN 325 MG TAB PO PRN (17:15)
[2017-09-30] MEDS ORDERED: NITROGLYCERIN 0.4 MG SL TAB SL PRN (17:15)
[2017-09-30] MEDS ORDERED: TEMAZEPAM 15 MG CAP PO PRN (17:15)
[2017-09-30] MEDS ORDERED: ONDANSETRON HCL 4 MG/2 ML VIAL IV PRN (17:15)
[2017-09-30] MEDS ORDERED: HYDROcodone-ACET 5/325MG TAB PO PRN (17:15)
[2017-09-30] MEDS: InsuLIN REG 1unit/0.01ml Soln (100units/ml) SC SCH ×2 (17:28→22:17)
[2017-09-30] MEDS: FAMOTIDINE 20 MG TAB PO SCH (17:31)
[2017-09-30] MEDS ORDERED: LEVOFLOXACIN 250 MG TAB PO SCH (17:46)
[2017-09-30] MEDS: ARTIFICIAL TEARS 15ml EACHEYE SCH (18:38)
[2017-09-30] MEDS: Boost Glucose Control 8 Ounces PO SCH (18:39)
[2017-09-30 21:24] VITALS: BP 120/56
[2017-09-30] MEDS ORDERED: INSULIN LANTUS (GLARGINE) 1 /0.01ml (100units/ml) SC SCH (22:00)
[2017-09-30] MEDS ORDERED: PRAVASTATIN SODIUM 20 MG TAB PO SCH (22:00)
[2017-09-30] MEDS: BENAZEPRIL HCL 10 MG TAB PO SCH (22:06)
[2017-09-30] MEDS: SODIUM CHLOR 0.9% PF (SALINE LOCK) 10ML VIAL IV SCH (22:06)
[2017-09-30 22:52] VITALS: BP 120/56
[2017-10-01 05:10] VITALS: BP 118/62
[2017-10-01 06:29] LABS: Basophils # (auto) 0 uL; Basophils % (auto) 0.5 % (0.0-2.0); Eosinophils # (auto) 0.1 uL; Eosinophils % (auto) 1.2 % (0.0-7.0); Hematocrit 27.7 % (36.0-46.0); Hemoglobin 9.4 g/dL (12.2-16.2); Lymphocytes # (auto) 0.5 uL; Lymphocytes % (auto) 5.9 % (10.0-50.0); Mean Corpuscular Hemoglobin 29.5 pg (28.0-32.0); Mean Corpuscular Hgb Conc. 33.9 g/dL (32.0-36.0); Monocytes # (auto) 0.5 uL; Monocytes % (auto) 6.6 % (0.0-12.0); Neutrophils # (auto) 7.1 uL; Neutrophils % (auto) 85.8 % (37.0-80.0); Nucleated Red Blood Cells % 0.1 %; Platelet Count (auto) 268 10^3/uL (140-450); Red Blood Cells 3.18 10^6/uL (4.0-5.20); Red Cell Distribution Width 17.4 % (11.8-14.3); White Blood Cell 8.3 10^3/uL (4.4-10.8)
[2017-10-01] MEDS: SODIUM CHLOR 0.9% PF (SALINE LOCK) 10ML VIAL IV SCH (06:33)
[2017-10-01] MEDS: ACCU-CHEK COMFORT CURVE STRIP VI SCH ×2 (06:34→11:42)
[2017-10-01 06:51] LABS: Albumin 2.6 g/dL (3.4-5.0); BUN/Creatinine Ratio 10.3; Bilirubin, Total 0.4 mg/dL (0.2-1.0); Calcium 7.7 mg/dL (8.5-10.1); Potassium 4.1 mmol/L (3.5-5.1); Total Protein 6.4 g/dL (6.4-8.2)
[2017-10-01] MEDS: InsuLIN REG 1unit/0.01ml Soln (100units/ml) SC SCH ×2 (06:51→11:30)
[2017-10-01] MEDS ORDERED: LEVOTHYROXINE SODIUM 50 MCG TAB PO SCH (07:00)
[2017-10-01 09:00] VITALS: BP 125/73
[2017-10-01] MEDS: FAMOTIDINE 20 MG TAB PO SCH (09:12)
[2017-10-01] MEDS: BENAZEPRIL HCL 10 MG TAB PO SCH (09:13)
[2017-10-01] MEDS: Boost Glucose Control 8 Ounces PO SCH ×2 (09:15→13:32)
[2017-10-01] MEDS: ARTIFICIAL TEARS 15ml EACHEYE SCH (09:15)
[2017-10-01] MEDS ORDERED: POTASSIUM CHL 10 Meq TABLET PO SCH (10:00)
[2017-10-01] MEDS ORDERED: METOPROLOL SUCCINATE XL 50 MG TAB PO SCH (10:00)
[2017-10-01] MEDS ORDERED: AMIODARONE HCL 200 MG TAB PO SCH (10:00)
[2017-10-01] MEDS ORDERED: MULTIPLE VITAMIN TAB PO SCH (10:00)
[2017-10-01] MEDS ORDERED: amLODIPine BESYLATE 5 MG TAB PO SCH (10:00)
[2017-10-01] MEDS ORDERED: CLOPIDOGREL BISULFATE 75 MG TAB PO SCH (10:00)
[2017-10-01] MEDS ORDERED: FUROSEMIDE 20 MG TAB PO SCH (10:00)
[2017-10-01] MEDS ORDERED: DABIGATRAN 75 MG CAP PO SCH (10:00)
[2017-10-01] MEDS ORDERED: SOD CHL 0.45% 1,000 ML IV SCH (10:30)
[2017-10-01 11:17] LABS: Urine Bacteria NONE SEEN /hpf (None Seen); Urine Blood Negative /uL (Negative); Urine Specific Gravity 1.004 (1.001-1.035); Urine WBC 2 /hpf (0 - 5)
[2017-10-01 13:00] VITALS: BP 149/81
[2017-10-01 13:18] VITALS: BP 139/80
[2017-10-01] MEDS ORDERED: INSULIN LANTUS (GLARGINE) 1 /0.01ml (100units/ml) SC SCH (22:00)
== END 2017-10-01 13:58 | disposition home or self-care (01) | DRG 314 ==
LOC: ER 10:45 → EDUNIT# 10:45 → EDBD 10:45 → TELE 10:46 → TELE-WESTW 20:58
PROVIDERS: ADMIT Internal Medicine; ATTEND Internal Medicine
DX: I95.89 Other hypotension (principal); I50.43 Acute on chronic combined systolic (congestive) and diastolic (congestive) heart failure; E44.0 Moderate protein-calorie malnutrition; D68.69 Other thrombophilia; E11.21 Type 2 diabetes mellitus with diabetic nephropathy; N18.4 Chronic kidney disease, stage 4 (severe); N17.9 Acute kidney failure, unspecified; E11.649 Type 2 diabetes mellitus with hypoglycemia without coma; E11.22 Type 2 diabetes mellitus with diabetic chronic kidney disease; I48.92 Unspecified atrial flutter; E87.1 Hypo-osmolality and hyponatremia; I13.0 Hypertensive heart and chronic kidney disease with heart failure and stage 1 through stage 4 chronic kidney disease, or unspecified chronic kidney disease; I48.91 Unspecified atrial fibrillation; E83.51 Hypocalcemia; D63.8 Anemia in other chronic diseases classified elsewhere; E11.69 Type 2 diabetes mellitus with other specified complication; E78.5 Hyperlipidemia, unspecified; E89.0 Postprocedural hypothyroidism; F41.9 Anxiety disorder, unspecified; I25.10 Atherosclerotic heart disease of native coronary artery without angina pectoris; J44.9 Chronic obstructive pulmonary disease, unspecified; Z79.4 Long term (current) use of insulin; Z82.49 Family history of ischemic heart disease and other diseases of the circulatory system; Z95.5 Presence of coronary angioplasty implant and graft; Z79.899 Other long term (current) drug therapy; Z68.27 Body mass index [BMI] 27.0-27.9, adult
CPT/HCPCS: 36415; 71045; 76775; 80053; 81001; 82962; 83036; 83735; 83880; 84443; 84484; 85025; 85610; 85730; 87081; 87086; 93005; 96374; 97163; J1815

== ENCOUNTER → 2017-10-08 | Outpatient (CLI) | payer OTHER, MEDICARE ==
[~2017-10-08] MED LIST changes: +DEXTROSE (50%) 50ML SYRG IV ONE; +DEXTROSE 50% SYRINGE 50 ML IV ONE; -[UNRECOGNIZED DRUG - CODE] PO
[2017-10-08 15:10] VITALS: BP 140/66
[2017-10-08 15:38] LABS: Basophils # (auto) 0.1 uL; Basophils % (auto) 0.8 % (0.0-2.0); Eosinophils # (auto) 0.3 uL; Eosinophils % (auto) 2.5 % (0.0-7.0); Hematocrit 34.6 % (36.0-46.0); Hemoglobin 11.2 g/dL (12.2-16.2); Lymphocytes # (auto) 2.7 uL; Lymphocytes % (auto) 22.4 % (10.0-50.0); Mean Corpuscular Hemoglobin 28.5 pg (28.0-32.0); Mean Corpuscular Hgb Conc. 32.3 g/dL (32.0-36.0); Mean Corpuscular Volume 88.3 fL (80.0-100.0); Monocytes % (auto) 8.1 % (0.0-12.0); Neutrophils # (auto) 7.9 uL; Neutrophils % (auto) 66.2 % (37.0-80.0); Nucleated Red Blood Cells % 0.1 %; Platelet Count (auto) 258 10^3/uL (140-450); Red Blood Cells 3.92 10^6/uL (4.0-5.20); Red Cell Distribution Width 17.3 % (11.8-14.3); White Blood Cell 11.9 10^3/uL (4.4-10.8)
[2017-10-08 15:42] LABS: BUN/Creatinine Ratio 11.1; Calcium 8.8 mg/dL (8.5-10.1); Potassium 3.4 mmol/L (3.5-5.1)
== END | disposition home or self-care (01) ==
LOC: CHF HDHVI 14:38
PROVIDERS: ATTEND Internal Medicine Cardiovascular Disease
DX: D64.9 Anemia, unspecified (principal); I10 Essential (primary) hypertension; E16.2 Hypoglycemia, unspecified
CPT/HCPCS: 36415; 80048; 85025; 96374; G0463; J7042

== ENCOUNTER 2017-11-19 16:48 | Inpatient (IN) | payer MEDICARE, OTHER ==
[~2017-11-19] VITALS: Ht 162.6 cm; Wt 69.7 kg
[~2017-11-19 16:48] MED LIST changes: -DEXTROSE (50%) 50ML SYRG IV ONE; -DEXTROSE 50% SYRINGE 50 ML IV ONE
[2017-11-19] MEDS ORDERED: SODIUM CHLORIDE 0.9% 1,000 ML IV ONE (17:25)
[2017-11-19] MEDS ORDERED: DILTIAZEM HCL 25 MG/5 ML VIAL IV ONE (17:30)
[2017-11-19] MEDS ORDERED: LABETALOL HCL 5 MG/ML ML 20ML VIAL IV ONE ×2 (17:30→17:31)
[2017-11-19] MEDS ORDERED: InsuLIN REG 1unit/0.01ml Soln (100units/ml) IV ONE (17:30)
[2017-11-19 17:58] LABS: Lactic Acid w/Reflex 4.9 mmol/L (0.4-2.0)
[2017-11-19 18:00] LABS: Alanine Aminotransferase 20 U/L (13-56); Albumin 4.3 g/dL (3.4-5.0); Alkaline Phosphatase 116 U/L (45-117); Anion Gap 17 (5-15); Aspartate Aminotransferase 20 U/L (15-37); BUN/Creatinine Ratio 13.3; Basophils # (auto) 0.1 uL; Basophils % (auto) 0.3 % (0.0-2.0); Bilirubin, Total 0.6 mg/dL (0.2-1.0); Blood Urea Nitrogen 24 mg/dL (7-18); Calcium 9.6 mg/dL (8.5-10.1); Carbon Dioxide 18 mmol/L (21-32); Chloride 94 mmol/L (98-107); Eosinophils # (auto) 0 uL; GFR African American 35 mL/min; GFR Non-African American 29 mL/min; Hematocrit 42.3 % (36.0-46.0); Hemoglobin 13.7 g/dL (12.2-16.2); Lymphocytes # (auto) 0.9 uL; Lymphocytes % (auto) 5.3 % (10.0-50.0); Magnesium 2.2 mg/dL (1.6-2.6); Mean Corpuscular Hgb Conc. 32.4 g/dL (32.0-36.0); Mean Corpuscular Volume 83.2 fL (80.0-100.0); Monocytes # (auto) 0.3 uL; Monocytes % (auto) 1.7 % (0.0-12.0); Neutrophils % (auto) 92.7 % (37.0-80.0); Platelet Count (auto) 222 10^3/uL (140-450); Red Blood Cells 5.08 10^6/uL (4.0-5.20); Red Cell Distribution Width 15.8 % (11.8-14.3); Sodium 129 mmol/L (136-145); Total Protein 9.3 g/dL (6.4-8.2); White Blood Cell 16.2 10^3/uL (4.4-10.8)
[2017-11-19 18:06] LABS: Glucose 540 mg/dL (74-106)
[2017-11-19] MEDS ORDERED: DEXTROSE (50%) 50ML SYRG IV PRN (18:45)
[2017-11-19] MEDS ORDERED: LABETALOL HCL 5 MG/ML ML 20ML VIAL IV PRN (19:00)
[2017-11-19] MEDS: SODIUM CHLORIDE 0.9% 1,000 ML IV SCH ×2 (19:00→20:58)
[2017-11-19] MEDS ORDERED: cefTRIAXone 1GM/10ml IVPUSH 10 ML IV ONE (19:00)
[2017-11-19] MEDS ORDERED: NITROGLYCERIN 0.4 MG SL TAB SL PRN (19:15)
[2017-11-19] MEDS ORDERED: ACETAMINOPHEN 325 MG TAB PO PRN (19:15)
[2017-11-19] MEDS ORDERED: DOCUSATE SOD 100 MG CAP PO PRN (19:15)
[2017-11-19] MEDS ORDERED: HYDROcodone-ACET 5/325MG TAB PO PRN (19:15)
[2017-11-19] MEDS ORDERED: MORPHINE SULFATE 4 MG/ML SYR/VIAL IV PRN ×2 (19:15)
[2017-11-19] MEDS ORDERED: ONDANSETRON HCL 4 MG/2 ML VIAL IV PRN (19:15)
[2017-11-19] MEDS: InsuLIN R (HUMAN) 100 UNITS in SODIUM CHL 0.9% 99 ML IV SCH (19:23)
[2017-11-19] MEDS: ACCU-CHEK COMFORT CURVE STRIP VI SCH ×3 (19:30→22:42)
[2017-11-19] MEDS ORDERED: METOPROLOL SUCCINATE XL 50 MG TAB PO ONE (19:30)
[2017-11-19] MEDS ORDERED: BENAZEPRIL HCL 10 MG TAB PO ONE (19:30)
[2017-11-19 19:47] LABS: Calcium 9.1 mg/dL (8.5-10.1); Potassium 3.9 mmol/L (3.5-5.1)
[2017-11-19 19:51] LABS: Magnesium 1.8 mg/dL (1.6-2.6); Phosphorus 2.7 mg/dL (2.5-4.90)
[2017-11-19] MEDS ORDERED: BENAZEPRIL HCL 10 MG TAB ONE (20:07)
[2017-11-19 20:18] LABS: Urine Bacteria NONE SEEN /hpf (None Seen); Urine Blood Negative /uL (Negative); Urine Specific Gravity 1.015 (1.001-1.035); Urine WBC 1 /hpf (0 - 5)
[2017-11-19] MEDS: LINEZOLID 600MG/300ML 300 ML IV SCH (22:00)
[2017-11-19 22:18] LABS: Lactic Acid w/Reflex 4.3 mmol/L (0.4-2.0)
[2017-11-19] MEDS: FAMOTIDINE 20 MG TAB PO SCH (22:31)
[2017-11-19] MEDS: PRAVASTATIN SODIUM 20 MG TAB PO SCH (22:32)
[2017-11-19] MEDS: cloNIDine HCL 0.1 MG TAB PO SCH (22:34)
[2017-11-19] MEDS: AMIODARONE HCL 200 MG TAB PO SCH (22:34)
[2017-11-19] MEDS ORDERED: SODIUM CHLORIDE 0.9% 1,000 ML IV SCH (22:37)
[2017-11-20] MEDS: ARTIFICIAL TEARS 15ml EACHEYE SCH ×4 (00:24→23:32)
[2017-11-20] MEDS: ACCU-CHEK COMFORT CURVE STRIP VI SCH ×12 (00:26→19:07)
[2017-11-20] MEDS: DABIGATRAN 75 MG CAP PO SCH ×3 (00:36→23:49)
[2017-11-20 00:43] LABS: BUN/Creatinine Ratio 13.6; Calcium 9.2 mg/dL (8.5-10.1); Potassium 3.4 mmol/L (3.5-5.1)
[2017-11-20] MEDS: SODIUM CHLORIDE 0.9% 1,000 ML IV SCH ×3 (01:29→13:57)
[2017-11-20] MEDS: cloNIDine HCL 0.1 MG TAB PO PRN ×4 (01:38→23:31)
[2017-11-20] MEDS: cloNIDine HCL 0.1 MG TAB PO SCH ×3 (05:57→23:32)
[2017-11-20] MEDS: LEVOTHYROXINE SODIUM 50 MCG TAB PO SCH (07:00)
[2017-11-20 07:04] LABS: Basophils # (auto) 0 uL; Basophils % (auto) 0.4 % (0.0-2.0); Eosinophils # (auto) 0 uL; Hematocrit 38.6 % (36.0-46.0); Hemoglobin 12.6 g/dL (12.2-16.2); Lymphocytes # (auto) 0.9 uL; Lymphocytes % (auto) 6.5 % (10.0-50.0); Mean Corpuscular Hemoglobin 27.2 pg (28.0-32.0); Mean Corpuscular Hgb Conc. 32.5 g/dL (32.0-36.0); Mean Corpuscular Volume 83.5 fL (80.0-100.0); Monocytes # (auto) 0.6 uL; Monocytes % (auto) 4.6 % (0.0-12.0); Neutrophils # (auto) 11.8 uL; Neutrophils % (auto) 88.5 % (37.0-80.0); Nucleated Red Blood Cells % 0.1 %; Platelet Count (auto) 183 10^3/uL (140-450); Red Blood Cells 4.63 10^6/uL (4.0-5.20); Red Cell Distribution Width 15.6 % (11.8-14.3); White Blood Cell 13.4 10^3/uL (4.4-10.8)
[2017-11-20 07:25] LABS: Albumin 3.7 g/dL (3.4-5.0); Bilirubin, Total 0.3 mg/dL (0.2-1.0); Calcium 8.3 mg/dL (8.5-10.1); Potassium 3.1 mmol/L (3.5-5.1); Total Protein 7.9 g/dL (6.4-8.2)
[2017-11-20] MEDS ORDERED: BENAZEPRIL HCL 10 MG TAB PO SCH (10:00)
[2017-11-20] MEDS: MULTIPLE VITAMIN TAB PO SCH (10:00)
[2017-11-20] MEDS: FUROSEMIDE 20 MG TAB PO SCH (10:00)
[2017-11-20] MEDS: POTASSIUM CHL 10 Meq TABLET PO SCH (10:00)
[2017-11-20] MEDS ORDERED: METOPROLOL SUCCINATE XL 50 MG TAB PO SCH (10:00)
[2017-11-20] MEDS: AMIODARONE HCL 200 MG TAB PO SCH ×2 (10:00→23:32)
[2017-11-20] MEDS ORDERED: POTASSIUM CHL 10% (20 MEQ/15ML) 15ml ORAL SOLN PO ONE ×2 (10:45→15:15)
[2017-11-20] MEDS ORDERED: METOPROLOL SUCCINATE XL 50 MG TAB PO ONE (10:45)
[2017-11-20] MEDS: cefTRIAXone 1GM/10ml IVPUSH 10 ML IV SCH (11:18)
[2017-11-20] MEDS: LINEZOLID 600MG/300ML 300 ML IV SCH ×2 (11:18→23:32)
[2017-11-20 11:38] LABS: BUN/Creatinine Ratio 12.4; Calcium 8.2 mg/dL (8.5-10.1)
[2017-11-20] MEDS ORDERED: INSULIN LANTUS (GLARGINE) 1 /0.01ml (100units/ml) SC ONE (13:30)
[2017-11-20] MEDS ORDERED: InsuLIN REG 1unit/0.01ml Soln (100units/ml) SC SCH (14:00)
[2017-11-20 15:44] LABS: BUN/Creatinine Ratio 10.9; Calcium 8.3 mg/dL (8.5-10.1); Potassium 3.3 mmol/L (3.5-5.1)
[2017-11-20] MEDS ORDERED: LABETALOL HCL 5 MG/ML ML 20ML VIAL IV ONE (15:45)
[2017-11-20] MEDS ORDERED: DEXTROSE (50%) 50ML SYRG IV PRN (16:30)
[2017-11-20] MEDS: InsuLIN R (HUMAN) 100 UNITS in SODIUM CHL 0.9% 99 ML IV SCH (18:37)
[2017-11-20] MEDS: InsuLIN REG 1unit/0.01ml Soln (100units/ml) SC SCH (19:07)
[2017-11-20] MEDS: PRAVASTATIN SODIUM 20 MG TAB PO SCH (23:32)
[2017-11-20] MEDS: FAMOTIDINE 20 MG TAB PO SCH (23:32)
[2017-11-21] MEDS: ACCU-CHEK COMFORT CURVE STRIP VI SCH ×4 (01:15→12:00)
[2017-11-21 01:26] LABS: Basophils # (auto) 0.1 uL; Basophils % (auto) 1.2 % (0.0-2.0); Eosinophils # (auto) 0.1 uL; Eosinophils % (auto) 0.5 % (0.0-7.0); Hematocrit 36.5 % (36.0-46.0); Lymphocytes # (auto) 1.1 uL; Lymphocytes % (auto) 11.9 % (10.0-50.0); Mean Corpuscular Hemoglobin 27.1 pg (28.0-32.0); Mean Corpuscular Hgb Conc. 32.9 g/dL (32.0-36.0); Mean Corpuscular Volume 82.6 fL (80.0-100.0); Monocytes # (auto) 0.5 uL; Monocytes % (auto) 5.5 % (0.0-12.0); Neutrophils # (auto) 7.7 uL; Neutrophils % (auto) 80.9 % (37.0-80.0); Platelet Count (auto) 156 10^3/uL (140-450); Red Blood Cells 4.43 10^6/uL (4.0-5.20); Red Cell Distribution Width 15.4 % (11.8-14.3); White Blood Cell 9.5 10^3/uL (4.4-10.8)
[2017-11-21 01:43] LABS: Albumin 3.1 g/dL (3.4-5.0); BUN/Creatinine Ratio 10.4; Calcium 8.4 mg/dL (8.5-10.1); Potassium 3.5 mmol/L (3.5-5.1)
[2017-11-21 01:46] LABS: Bilirubin, Total 0.5 mg/dL (0.2-1.0); Total Protein 7.2 g/dL (6.4-8.2)
[2017-11-21] MEDS ORDERED: DEXTROSE (50%) 50ML SYRG IV PRN (03:00)
[2017-11-21] MEDS: InsuLIN REG 1unit/0.01ml Soln (100units/ml) SC SCH ×4 (04:00→13:08)
[2017-11-21 04:30] VITALS: BP 164/105
[2017-11-21] MEDS: cloNIDine HCL 0.1 MG TAB PO PRN (04:57)
[2017-11-21 04:58] VITALS: BP 164/105
[2017-11-21] MEDS: LEVOTHYROXINE SODIUM 50 MCG TAB PO SCH (06:47)
[2017-11-21] MEDS: cloNIDine HCL 0.1 MG TAB PO SCH ×2 (06:48→13:06)
[2017-11-21 07:37] LABS: Basophils # (auto) 0.1 uL; Basophils % (auto) 1.3 % (0.0-2.0); Eosinophils # (auto) 0.1 uL; Eosinophils % (auto) 1.3 % (0.0-7.0); Hematocrit 36.6 % (36.0-46.0); Hemoglobin 12.2 g/dL (12.2-16.2); Lymphocytes % (auto) 12.3 % (10.0-50.0); Mean Corpuscular Hemoglobin 27.2 pg (28.0-32.0); Mean Corpuscular Hgb Conc. 33.4 g/dL (32.0-36.0); Mean Corpuscular Volume 81.6 fL (80.0-100.0); Monocytes # (auto) 0.5 uL; Monocytes % (auto) 5.8 % (0.0-12.0); Neutrophils # (auto) 6.5 uL; Neutrophils % (auto) 79.3 % (37.0-80.0); Platelet Count (auto) 157 10^3/uL (140-450); Red Blood Cells 4.49 10^6/uL (4.0-5.20); Red Cell Distribution Width 15.5 % (11.8-14.3); White Blood Cell 8.2 10^3/uL (4.4-10.8)
[2017-11-21 07:52] LABS: BUN/Creatinine Ratio 9.9; Calcium 8.2 mg/dL (8.5-10.1); Magnesium 1.9 mg/dL (1.6-2.6); Phosphorus 2.9 mg/dL (2.5-4.90); Potassium 3.3 mmol/L (3.5-5.1); Uric Acid 4.9 mg/dL (2.6-6.0)
[2017-11-21 08:13] VITALS: BP 147/99
[2017-11-21] MEDS: cefTRIAXone 1GM/10ml IVPUSH 10 ML IV SCH (09:00)
[2017-11-21 09:06] LABS: Free T4 (Free Thyroxine) 1.98 ng/dL (0.89-1.76); T3 Total 0.68 ng/mL (0.60-1.81)
[2017-11-21] MEDS: ARTIFICIAL TEARS 15ml EACHEYE SCH (10:00)
[2017-11-21] MEDS ORDERED: METOPROLOL SUCCINATE XL 50 MG TAB PO SCH (10:00)
[2017-11-21] MEDS: DABIGATRAN 75 MG CAP PO SCH (10:00)
[2017-11-21] MEDS: POTASSIUM CHL 10% (20 MEQ/15ML) 15ml ORAL SOLN PO ONE ×2 (10:30→13:30)
[2017-11-21] MEDS ORDERED: INSULIN LANTUS (GLARGINE) 1 /0.01ml (100units/ml) SC SCH (10:30)
[2017-11-21] MEDS ORDERED: METO50TA7 PO (10:36)
[2017-11-21] MEDS ORDERED: DABI75CA4 PO (10:36)
[2017-11-21] MEDS ORDERED: ASP81EC PO (10:36)
[2017-11-21] MEDS ORDERED: INSUINJ37 SC (10:47)
[2017-11-21] MEDS ORDERED: INSLISPI SC (10:47)
[2017-11-21] MEDS: POTASSIUM CHL 10 Meq TABLET PO SCH (10:50)
[2017-11-21] MEDS: FUROSEMIDE 20 MG TAB PO SCH (10:51)
[2017-11-21] MEDS: MULTIPLE VITAMIN TAB PO SCH (10:51)
[2017-11-21] MEDS: AMIODARONE HCL 200 MG TAB PO SCH (10:51)
[2017-11-21 12:36] VITALS: BP 161/87
[2017-11-21] MEDS ORDERED: POTASSIUM CHL 20 Meq TABLET PO ONE (13:15)
[2017-11-21 14:36] VITALS: BP 161/87
== END 2017-11-21 15:38 | disposition home health service (06) | DRG 189 ==
LOC: EDBD 16:48 → ER 16:55 → TELE 16:56 → TELE-EAST 11-21 04:30
PROVIDERS: ADMIT Internal Medicine; ATTEND Internal Medicine
DX: J96.01 Acute respiratory failure with hypoxia (principal); E11.10 Type 2 diabetes mellitus with ketoacidosis without coma; N17.9 Acute kidney failure, unspecified; G92 Toxic encephalopathy; D68.69 Other thrombophilia; E11.21 Type 2 diabetes mellitus with diabetic nephropathy; N18.3 Chronic kidney disease, stage 3 (moderate); E11.22 Type 2 diabetes mellitus with diabetic chronic kidney disease; I13.0 Hypertensive heart and chronic kidney disease with heart failure and stage 1 through stage 4 chronic kidney disease, or unspecified chronic kidney disease; I50.42 Chronic combined systolic (congestive) and diastolic (congestive) heart failure; I48.92 Unspecified atrial flutter; E87.1 Hypo-osmolality and hyponatremia; E03.9 Hypothyroidism, unspecified; I48.0 Paroxysmal atrial fibrillation; I25.10 Atherosclerotic heart disease of native coronary artery without angina pectoris; I48.2 Chronic atrial fibrillation; E78.5 Hyperlipidemia, unspecified; F41.9 Anxiety disorder, unspecified; Z80.0 Family history of malignant neoplasm of digestive organs; Z82.0 Family history of epilepsy and other diseases of the nervous system; Z83.3 Family history of diabetes mellitus; Z82.49 Family history of ischemic heart disease and other diseases of the circulatory system; Z98.61 Coronary angioplasty status
CPT/HCPCS: 36415; 36600; 70450; 71045; 80048; 80053; 80320; 81001; 82010; 82805; 82962; 83036; 83605; 83735; 83930; 84100; 84439; 84443; 84480; 84484; 84550; 85025; 87040; 87086; 93005; 96374; 96375; 99291; J1815

== ENCOUNTER 2017-11-23 12:23 | Inpatient (IN) | payer MEDICARE, OTHER ==
[~2017-11-23] VITALS: Ht 162.6 cm; Wt 71.1 kg
[~2017-11-23 12:23] MED LIST changes: +ASP81EC PO; -BENA40TA7 PO; -DABI150C PO; +DABI75CA4 PO; -FELO10TA PO; +INSLISPI SC; +INSUINJ37 SC; -LEVEMIR SC; -LEVO500T21 PO; -METO-169 PO; +METO50TA7 PO
[2017-11-23] MEDS ORDERED: LABETALOL HCL 5 MG/ML ML 20ML VIAL IV ONE (13:00)
[2017-11-23 13:03] LABS: Basophils # (auto) 0.1 uL; Eosinophils # (auto) 0 uL; Hemoglobin 13.5 g/dL (12.2-16.2); Monocytes # (auto) 0.3 uL; Neutrophils # (auto) 12.4 uL; Red Cell Distribution Width 15.4 % (11.8-14.3)
[2017-11-23 13:05] LABS: Basophils % (auto) 0.6 % (0.0-2.0); Hematocrit 40.8 % (36.0-46.0); Lymphocytes # (auto) 0.6 uL; Lymphocytes % (auto) 4.3 % (10.0-50.0); Mean Corpuscular Hemoglobin 27.4 pg (28.0-32.0); Monocytes % (auto) 2.3 % (0.0-12.0); Neutrophils % (auto) 92.8 % (37.0-80.0); Platelet Count (auto) 245 10^3/uL (140-450); Red Blood Cells 4.91 10^6/uL (4.0-5.20); White Blood Cell 13.4 10^3/uL (4.4-10.8)
[2017-11-23 13:14] LABS: INR 1.34 (0.9-1.15); Partial Thromboplastin Time 39.7 sec (22.64-33.71); Prothrombin Time 14.7 sec (9.37-12.3)
[2017-11-23 13:17] LABS: Albumin 3.8 g/dL (3.4-5.0); Anion Gap 21 (5-15); Blood Urea Nitrogen 28 mg/dL (7-18); Carbon Dioxide 15 mmol/L (21-32); Chloride 97 mmol/L (98-107); Magnesium 1.9 mg/dL (1.6-2.6); Potassium 3.4 mmol/L (3.5-5.1); Sodium 133 mmol/L (136-145)
[2017-11-23 13:21] LABS: Alanine Aminotransferase 20 U/L (13-56); Aspartate Aminotransferase 20 U/L (15-37); BUN/Creatinine Ratio 14.8; GFR African American 33 mL/min; GFR Non-African American 27 mL/min
[2017-11-23 13:23] LABS: Glucose 456 mg/dL (74-106)
[2017-11-23 13:29] LABS: Alkaline Phosphatase 93 U/L (45-117); Bilirubin, Total 0.5 mg/dL (0.2-1.0); Total Protein 8.5 g/dL (6.4-8.2)
[2017-11-23] MEDS ORDERED: InsuLIN R (HUMAN) 100 UNITS in SODIUM CHL 0.9% 99 ML IV SCH ×4 (13:33)
[2017-11-23] MEDS ORDERED: DEXTROSE (50%) 50ML SYRG IV PRN (13:45)
[2017-11-23] MEDS: SODIUM CHLORIDE 0.9% 1,000 ML IV SCH ×3 (13:45→15:33)
[2017-11-23] MEDS ORDERED: ACETAMINOPHEN 500 MG TAB PO PRN (14:15)
[2017-11-23] MEDS ORDERED: HYDROcodone-ACET 5/325MG TAB PO PRN (14:15)
[2017-11-23] MEDS ORDERED: MORPHINE SULFATE 4 MG/ML SYR/VIAL IV PRN ×2 (14:15)
[2017-11-23] MEDS ORDERED: LACTULOSE 20Gm/30ML SOLN PO PRN (14:15)
[2017-11-23] MEDS ORDERED: NITROGLYCERIN 0.4 MG SL TAB SL PRN (14:15)
[2017-11-23] MEDS ORDERED: PROMETHAZINE HCL 25 MG/ML 1ML IV PRN (14:15)
[2017-11-23] MEDS ORDERED: TEMAZEPAM 15 MG CAP PO PRN (14:15)
[2017-11-23] MEDS ORDERED: LORazepam 0.5 MG TAB PO PRN (14:15)
[2017-11-23] MEDS: DABIGATRAN 75 MG CAP PO SCH ×2 (14:34→21:40)
[2017-11-23] MEDS: METOPROLOL SUCCINATE XL 50 MG TAB PO SCH (14:43)
[2017-11-23] MEDS: AMIODARONE HCL 200 MG TAB PO SCH ×2 (14:44→21:40)
[2017-11-23] MEDS: ASPirin-EC 81 mg tab PO SCH (14:44)
[2017-11-23] MEDS: InsuLIN R (HUMAN) 100 UNITS in SODIUM CHL 0.9% 99 ML IV SCH ×5 (14:57→23:09)
[2017-11-23] MEDS ORDERED: ACCU-CHEK COMFORT CURVE STRIP VI SCH (15:00)
[2017-11-23] MEDS: ACCU-CHEK COMFORT CURVE STRIP VI SCH ×6 (15:04→22:30)
[2017-11-23 15:56] LABS: Albumin 3.5 g/dL (3.4-5.0); Calcium 8.8 mg/dL (8.5-10.1); Potassium 3.2 mmol/L (3.5-5.1)
[2017-11-23 15:58] LABS: BUN/Creatinine Ratio 15.8
[2017-11-23 16:00] LABS: Bilirubin, Total 0.4 mg/dL (0.2-1.0); Total Protein 8.2 g/dL (6.4-8.2)
[2017-11-23 16:03] LABS: Folate (Folic Acid) > 24.00 ng/mL (5.38-24)
[2017-11-23] MEDS ORDERED: MORPHINE SULFATE 8mg/ml INJ SDV IV PRN (16:30)
[2017-11-23 19:05] LABS: BUN/Creatinine Ratio 18.1; Calcium 8.1 mg/dL (8.5-10.1); Potassium 3.2 mmol/L (3.5-5.1)
[2017-11-23] MEDS: ARTIFICIAL TEARS 15ml EACHEYE SCH (21:28)
[2017-11-23] MEDS: cloNIDine HCL 0.1 MG TAB PO SCH ×2 (21:39→21:57)
[2017-11-23] MEDS: ATORVASTATIN 20 MG TAB PO SCH (21:40)
[2017-11-23 22:49] LABS: Calcium 8.3 mg/dL (8.5-10.1); Potassium 3.1 mmol/L (3.5-5.1)
[2017-11-23 22:51] LABS: BUN/Creatinine Ratio 18.9
[2017-11-24] MEDS: ACCU-CHEK COMFORT CURVE STRIP VI SCH ×12 (00:05→22:21)
[2017-11-24] MEDS: SODIUM CHLORIDE 0.9% 1,000 ML IV SCH ×3 (00:05→22:19)
[2017-11-24] MEDS: InsuLIN R (HUMAN) 100 UNITS in SODIUM CHL 0.9% 99 ML IV SCH ×4 (01:24→06:00)
[2017-11-24 04:43] LABS: Potassium 2.8 mmol/L (3.5-5.1)
[2017-11-24] MEDS ORDERED: POTASSIUM CHL 20 Meq TABLET PO ONE (05:00)
[2017-11-24] MEDS: cloNIDine HCL 0.1 MG TAB PO SCH ×3 (05:44→22:00)
[2017-11-24] MEDS ORDERED: PRAVASTATIN SODIUM 20 MG TAB PO SCH (10:00)
[2017-11-24] MEDS: DABIGATRAN 75 MG CAP PO SCH ×2 (11:24→22:00)
[2017-11-24] MEDS: ASPirin-EC 81 mg tab PO SCH (11:24)
[2017-11-24] MEDS: METOPROLOL SUCCINATE XL 50 MG TAB PO SCH (11:24)
[2017-11-24] MEDS: AMIODARONE HCL 200 MG TAB PO SCH ×2 (11:24→22:19)
[2017-11-24] MEDS: ARTIFICIAL TEARS 15ml EACHEYE SCH ×2 (11:24→22:00)
[2017-11-24] MEDS: NITROGLYCERIN 0.2MG/HR TOPICAL PATCH TD SCH (11:25)
[2017-11-24 14:40] LABS: Albumin 2.8 g/dL (3.4-5.0); BUN/Creatinine Ratio 17.4; Calcium 7.9 mg/dL (8.5-10.1); Potassium 3.7 mmol/L (3.5-5.1)
[2017-11-24 14:43] LABS: Bilirubin, Total 0.3 mg/dL (0.2-1.0); Total Protein 6.7 g/dL (6.4-8.2)
[2017-11-24] MEDS ORDERED: DEXTROSE (50%) 50ML SYRG IV PRN (14:45)
[2017-11-24] MEDS: InsuLIN REG 1unit/0.01ml Soln (100units/ml) SC SCH (18:10)
[2017-11-24 22:00] VITALS: BP 112/65
[2017-11-24] MEDS ORDERED: InsuLIN REG 1unit/0.01ml Soln (100units/ml) SC SCH (22:00)
[2017-11-24] MEDS ORDERED: InsuLIN REG 1unit/0.01ml Soln (100units/ml) ONE (22:16)
[2017-11-24] MEDS: ATORVASTATIN 20 MG TAB PO SCH (22:18)
[2017-11-25 05:00] VITALS: BP 134/70
[2017-11-25] MEDS: ACCU-CHEK COMFORT CURVE STRIP VI SCH ×2 (06:08→11:30)
[2017-11-25] MEDS: cloNIDine HCL 0.1 MG TAB PO SCH (06:08)
[2017-11-25] MEDS: InsuLIN REG 1unit/0.01ml Soln (100units/ml) SC SCH ×2 (06:08→11:30)
[2017-11-25] MEDS: SODIUM CHLORIDE 0.9% 1,000 ML IV SCH (06:08)
[2017-11-25 07:31] LABS: Urine Bacteria FEW /hpf (None Seen); Urine Blood Negative /uL (Negative); Urine Hyaline Cast FEW /lpf (0 - 2); Urine Specific Gravity 1.016 (1.001-1.035); Urine WBC 55 /hpf (0 - 5)
[2017-11-25 09:00] VITALS: BP 133/69
[2017-11-25] MEDS: ASPirin-EC 81 mg tab PO SCH (10:00)
[2017-11-25] MEDS: NITROGLYCERIN 0.2MG/HR TOPICAL PATCH TD SCH (10:00)
[2017-11-25] MEDS: AMIODARONE HCL 200 MG TAB PO SCH (10:39)
[2017-11-25] MEDS: METOPROLOL SUCCINATE XL 50 MG TAB PO SCH (10:45)
[2017-11-25] MEDS: DABIGATRAN 75 MG CAP PO SCH (11:19)
[2017-11-25] MEDS: ARTIFICIAL TEARS 15ml EACHEYE SCH (11:19)
[2017-11-25] MEDS ORDERED: cefTRIAXone 1GM/10ml IVPUSH 10 ML IV ONE (12:00)
[2017-11-25 13:00] VITALS: BP 159/99
== END 2017-11-25 14:30 | disposition home or self-care (01) | DRG 637 ==
LOC: ER 12:23 → EDBD 12:23 → TELE 12:24 → EAST 11-24 16:55
PROVIDERS: ADMIT Internal Medicine; ATTEND Internal Medicine
DX: E11.10 Type 2 diabetes mellitus with ketoacidosis without coma (principal); I50.43 Acute on chronic combined systolic (congestive) and diastolic (congestive) heart failure; E86.0 Dehydration; I48.91 Unspecified atrial fibrillation; E87.1 Hypo-osmolality and hyponatremia; E78.00 Pure hypercholesterolemia, unspecified; E03.9 Hypothyroidism, unspecified; D72.829 Elevated white blood cell count, unspecified; N39.0 Urinary tract infection, site not specified; I13.0 Hypertensive heart and chronic kidney disease with heart failure and stage 1 through stage 4 chronic kidney disease, or unspecified chronic kidney disease; E78.5 Hyperlipidemia, unspecified; E87.6 Hypokalemia; E11.22 Type 2 diabetes mellitus with diabetic chronic kidney disease; F41.9 Anxiety disorder, unspecified; I25.10 Atherosclerotic heart disease of native coronary artery without angina pectoris; N18.9 Chronic kidney disease, unspecified; Z79.4 Long term (current) use of insulin; Z82.49 Family history of ischemic heart disease and other diseases of the circulatory system
CPT/HCPCS: 36415; 36600; 71045; 80048; 80053; 81001; 82010; 82150; 82550; 82607; 82746; 82805; 82962; 83690; 83735; 83880; 84443; 84484; 85025; 85610; 85730; 93005; 96361; 96365; 96375; 99291; J1815

== ENCOUNTER 2018-01-23 16:41 | Inpatient (IN) | payer MEDICARE, MEDICAID ==
[~2018-01-23] VITALS: Ht 167.6 cm; Wt 69.0 kg
[~2018-01-23 16:41] MED LIST changes: +MET5XLT PO; -METO50TA7 PO
[2018-01-23] MEDS ORDERED: DILTIAZEM HCL 25 MG/5 ML VIAL IV ONE ×3 (17:00→18:45)
[2018-01-23 17:24] LABS: Urine Bacteria NONE SEEN /hpf (None Seen); Urine Blood 1+ /uL (Negative); Urine Specific Gravity 1.015 (1.001-1.035); Urine WBC 2 /hpf (0 - 5)
[2018-01-23 17:41] LABS: Basophils # (auto) 0.1 uL; Eosinophils # (auto) 0 uL; Lymphocytes # (auto) 0.5 uL
[2018-01-23 17:42] LABS: Basophils % (auto) 0.6 % (0.0-2.0); Hematocrit 44.4 % (36.0-46.0); Hemoglobin 14.5 g/dL (12.2-16.2); Lymphocytes % (auto) 3.8 % (10.0-50.0); Mean Corpuscular Hemoglobin 25.9 pg (28.0-32.0); Mean Corpuscular Hgb Conc. 32.6 g/dL (32.0-36.0); Mean Corpuscular Volume 79.4 fL (80.0-100.0); Monocytes # (auto) 0.3 uL; Neutrophils # (auto) 11.8 uL; Neutrophils % (auto) 93.6 % (37.0-80.0); Platelet Count (auto) 223 10^3/uL (140-450); Red Blood Cells 5.59 10^6/uL (4.0-5.20); Red Cell Distribution Width 16.7 % (11.8-14.3); White Blood Cell 12.6 10^3/uL (4.4-10.8)
[2018-01-23 17:58] LABS: Alanine Aminotransferase 25 U/L (13-56); Albumin 3.6 g/dL (3.4-5.0); Anion Gap 22 (5-15); Aspartate Aminotransferase 47 U/L (15-37); BUN/Creatinine Ratio 14.2; Bilirubin, Total 0.8 mg/dL (0.2-1.0); Blood Urea Nitrogen 31 mg/dL (7-18); Calcium 9.1 mg/dL (8.5-10.1); Carbon Dioxide 17 mmol/L (21-32); Chloride 95 mmol/L (98-107); GFR African American 28 mL/min; GFR Non-African American 23 mL/min; Potassium 4.7 mmol/L (3.5-5.1); Sodium 134 mmol/L (136-145); Total Protein 8.5 g/dL (6.4-8.2)
[2018-01-23 17:59] LABS: INR 1.15 (0.9-1.15); Partial Thromboplastin Time 34.8 sec (23.78-33.04); Prothrombin Time 12.2 sec (9.27-12.13)
[2018-01-23 18:05] LABS: Alkaline Phosphatase 109 U/L (45-117)
[2018-01-23 18:15] LABS: Glucose 530 mg/dL (74-106)
[2018-01-23] MEDS ORDERED: InsuLIN R (HUMAN) 100 UNITS in SODIUM CHL 0.9% 99 ML IV SCH ×2 (18:33→18:43)
[2018-01-23] MEDS: SODIUM CHLORIDE 0.9% 1,000 ML IV SCH ×2 (18:33→21:00)
[2018-01-23] MEDS ORDERED: DEXTROSE (50%) 50ML SYRG IV PRN ×2 (18:45→19:00)
[2018-01-23 18:55] LABS: Alcohol, Urine < 3.0 mg/dL (0-5); Amphetamine Screen, Urine NEGATIVE (NEGATIVE); Barbiturate Scree,Urine NEGATIVE (NEGATIVE); Benzodiazephine Screen, Urine NEGATIVE (NEGATIVE); Cannabinoid Screen, Urine NEGATIVE (NEGATIVE); Cocaine Screen, Urine NEGATIVE (NEGATIVE); Opiate Scree,Urine NEGATIVE (NEGATIVE); Phencyclidine Screen, Urine NEGATIVE (NEGATIVE)
[2018-01-23] MEDS ORDERED: LORazepam 0.5 MG TAB PO PRN (19:00)
[2018-01-23] MEDS ORDERED: ACETAMINOPHEN 500 MG TAB PO PRN (19:00)
[2018-01-23] MEDS ORDERED: PROMETHAZINE HCL 25 MG/ML 1ML IV PRN (19:00)
[2018-01-23] MEDS ORDERED: MORPHINE SULF INJ 2 MG/ML SYRINGE 1ML IV PRN ×2 (19:00)
[2018-01-23] MEDS ORDERED: TEMAZEPAM 15 MG CAP PO PRN (19:00)
[2018-01-23] MEDS ORDERED: NITROGLYCERIN 0.4 MG SL TAB SL PRN (19:00)
[2018-01-23] MEDS ORDERED: HYDROcodone-ACET 5/325MG TAB PO PRN (19:00)
[2018-01-23] MEDS ORDERED: LORazepam 2MG/ML-1ML VIAL ONE (19:19)
[2018-01-23] MEDS ORDERED: LORazepam 2MG/ML-1ML VIAL IV PRN (19:30)
[2018-01-23] MEDS ORDERED: ACCU-CHEK COMFORT CURVE STRIP VI SCH (19:30)
[2018-01-23] MEDS ORDERED: ETOMIDATE (2MG/ML) 20ML VIAL IV ONE ×2 (19:53→20:00)
[2018-01-23] MEDS ORDERED: MIDAZOLAM DRIP 50 mg/50mL 50 ML IV ONE (19:53)
[2018-01-23] MEDS ORDERED: SUCCINYLCHOLINE CHLORIDE 20 MG/ML 10ML VIAL IV ONE ×2 (19:54→20:00)
[2018-01-23 20:13] VITALS: BP 131/68
[2018-01-23] MEDS: MIDAZOLAM DRIP 50 mg/50mL 50 ML IV SCH (20:22)
[2018-01-23] MEDS ORDERED: LORazepam 2MG/ML-1ML VIAL IV ONE (20:30)
[2018-01-23] MEDS: ACCU-CHEK COMFORT CURVE STRIP VI SCH ×3 (20:30→22:32)
[2018-01-23] MEDS ORDERED: SODIUM BICARBONATE 8.4 % INJ 50ML VIAL IV ONE ×3 (20:30→21:45)
[2018-01-23] MEDS: DILTIAZEM 125mg/125ml BAG KIT 125 ML IV SCH (20:35)
[2018-01-23 21:57] VITALS: BP 128/68
[2018-01-23] MEDS: AMIODARONE HCL 200 MG TAB PO SCH (22:00)
[2018-01-23] MEDS: cloNIDine HCL 0.1 MG TAB PO SCH (22:00)
[2018-01-23] MEDS: [UNRECOGNIZED DRUG - OTHER] EACHEYE SCH (22:00)
[2018-01-23] MEDS: DABIGATRAN 75 MG CAP PO SCH (22:00)
[2018-01-23] MEDS ORDERED: SODIUM CHLORIDE 0.9% 1,000 ML IV SCH (22:33)
[2018-01-23 22:35] VITALS: BP 189/116
[2018-01-23] MEDS ORDERED: PROPOFOL 100 ML IV ONE (23:14)
[2018-01-23] MEDS: PROPOFOL 100 ML IV SCH (23:30)
[2018-01-24] VITALS (19 sets, daily range): BP systolic 114–173; BP diastolic 63–107
[2018-01-24] MEDS: ACCU-CHEK COMFORT CURVE STRIP VI SCH ×13 (00:01→23:52)
[2018-01-24] MEDS ORDERED: SODIUM CHLORIDE 0.9% 1,000 ML IV SCH ×2 (00:33→00:43)
[2018-01-24] MEDS ORDERED: InsuLIN R (HUMAN) 100 UNITS in SODIUM CHL 0.9% 99 ML IV SCH (01:32)
[2018-01-24 02:42] LABS: Basophils # (auto) 0.1 uL; Eosinophils # (auto) 0 uL; Lymphocytes # (auto) 0.8 uL; Monocytes # (auto) 1.1 uL; Neutrophils % (auto) 89.6 % (37.0-80.0); Red Cell Distribution Width 17.1 % (11.8-14.3)
[2018-01-24 02:43] LABS: Basophils % (auto) 0.6 % (0.0-2.0); Hematocrit 44.2 % (36.0-46.0); Lymphocytes % (auto) 4.2 % (10.0-50.0); Mean Corpuscular Hemoglobin 24.8 pg (28.0-32.0); Mean Corpuscular Hgb Conc. 31.6 g/dL (32.0-36.0); Mean Corpuscular Volume 78.5 fL (80.0-100.0); Monocytes % (auto) 5.6 % (0.0-12.0); Neutrophils # (auto) 17.1 uL; Platelet Count (auto) 193 10^3/uL (140-450); Red Blood Cells 5.63 10^6/uL (4.0-5.20); White Blood Cell 19.1 10^3/uL (4.4-10.8)
[2018-01-24 03:00] LABS: BUN/Creatinine Ratio 13.9; Potassium 3.1 mmol/L (3.5-5.1)
[2018-01-24] MEDS: cloNIDine HCL 0.1 MG TAB PO SCH ×4 (05:36→23:51)
[2018-01-24] MEDS: LEVOTHYROXINE SODIUM 50 MCG TAB PO SCH (06:40)
[2018-01-24 08:40] LABS: BUN/Creatinine Ratio 16.1; Calcium 9.2 mg/dL (8.5-10.1)
[2018-01-24] MEDS ORDERED: LIDOCAINE 2% (LOCAL ANESTH.) PF 5ml SDV ONE (09:16)
[2018-01-24] MEDS: [UNRECOGNIZED DRUG - OTHER] EACHEYE SCH ×2 (10:00→22:00)
[2018-01-24] MEDS ORDERED: INSULIN LANTUS (GLARGINE) 1 /0.01ml (100units/ml) SC SCH (10:00)
[2018-01-24] MEDS: METOPROLOL SUCCINATE XL 50 MG TAB PO SCH (10:00)
[2018-01-24] MEDS ORDERED: SOD CHL 0.9%/ KCL 40MEQ 1,000 ML IV ONE (10:00)
[2018-01-24] MEDS: ASPirin-EC 81 mg tab PO SCH (10:00)
[2018-01-24] MEDS: DABIGATRAN 75 MG CAP PO SCH (10:30)
[2018-01-24] MEDS: AMIODARONE HCL 200 MG TAB PO SCH ×2 (10:30→23:51)
[2018-01-24] MEDS: PANTOPRAZOLE 40 MG TAB PO SCH (10:30)
[2018-01-24] MEDS: PRAVASTATIN SODIUM 20 MG TAB PO SCH (11:15)
[2018-01-24] MEDS: InsuLIN REG 1unit/0.01ml Soln (100units/ml) SC SCH ×4 (12:15→23:54)
[2018-01-24] MEDS: LABETALOL HCL 5 MG/ML ML 20ML VIAL IV PRN (12:17)
[2018-01-24] MEDS ORDERED: DEXTROSE (50%) 50ML SYRG IV PRN (12:30)
[2018-01-24] MEDS ORDERED: cefTRIAXone 1GM/10ml IVPUSH 10 ML IV ONE (13:45)
[2018-01-24 14:35] LABS: BUN/Creatinine Ratio 16.6; Potassium 3.3 mmol/L (3.5-5.1)
[2018-01-24] MEDS: DILTIAZEM 125mg/125ml BAG KIT 125 ML IV SCH (16:13)
[2018-01-24] MEDS ORDERED: SODIUM CHLORIDE 0.9% 1,000 ML IV ONE (19:30)
[2018-01-24] MEDS: MIDAZOLAM DRIP 50 mg/50mL 50 ML IV SCH (19:52)
[2018-01-24] MEDS: INSULIN LANTUS (GLARGINE) 1 /0.01ml (100units/ml) SC SCH (23:03)
[2018-01-25] VITALS (103 sets, daily range): BP systolic 69–185; BP diastolic 44–117
[2018-01-25] MEDS: InsuLIN REG 1unit/0.01ml Soln (100units/ml) SC SCH ×6 (04:00→23:34)
[2018-01-25] MEDS: ACCU-CHEK COMFORT CURVE STRIP VI SCH ×6 (04:00→23:34)
[2018-01-25] MEDS: cloNIDine HCL 0.1 MG TAB PO SCH (06:00)
[2018-01-25 07:04] LABS: Basophils # (auto) 0 uL; Eosinophils # (auto) 0 uL; Hemoglobin 11.4 g/dL (12.2-16.2); Monocytes % (auto) 6.2 % (0.0-12.0)
[2018-01-25 07:08] LABS: Basophils % (auto) 0.3 % (0.0-2.0); Hematocrit 35.4 % (36.0-46.0); Lymphocytes # (auto) 0.8 uL; Lymphocytes % (auto) 4.9 % (10.0-50.0); Mean Corpuscular Hemoglobin 25.6 pg (28.0-32.0); Mean Corpuscular Hgb Conc. 32.1 g/dL (32.0-36.0); Neutrophils % (auto) 88.6 % (37.0-80.0); Nucleated Red Blood Cells % 0.1 %; Platelet Count (auto) 157 10^3/uL (140-450); Red Blood Cells 4.43 10^6/uL (4.0-5.20); Red Cell Distribution Width 17.1 % (11.8-14.3); White Blood Cell 15.8 10^3/uL (4.4-10.8)
[2018-01-25 07:09] LABS: Albumin 2.5 g/dL (3.4-5.0); BUN/Creatinine Ratio 19.6; Calcium 7.9 mg/dL (8.5-10.1); Potassium 3.5 mmol/L (3.5-5.1)
[2018-01-25] MEDS: LEVOTHYROXINE SODIUM 50 MCG TAB PO SCH (07:18)
[2018-01-25 07:23] LABS: Bilirubin, Total 0.4 mg/dL (0.2-1.0); Total Protein 6.1 g/dL (6.4-8.2)
[2018-01-25] MEDS: PROPOFOL 100 ML IV SCH ×2 (08:44→23:34)
[2018-01-25] MEDS ORDERED: ALBUMIN 25% 100 ML IV ONE ×2 (08:45→10:45)
[2018-01-25] MEDS ORDERED: SODIUM CHLORIDE 0.9% 500 ML IV ONE (08:45)
[2018-01-25] MEDS: cefTRIAXone 1GM/10ml IVPUSH 10 ML IV SCH (09:59)
[2018-01-25] MEDS: INSULIN LANTUS (GLARGINE) 1 /0.01ml (100units/ml) SC SCH ×2 (10:00→21:03)
[2018-01-25] MEDS: [UNRECOGNIZED DRUG - OTHER] EACHEYE SCH ×2 (10:00→21:03)
[2018-01-25] MEDS ORDERED: SODIUM CHLORIDE 0.9% 1,000 ML IV ONE (10:45)
[2018-01-25] MEDS: AMIODARONE HCL 200 MG TAB PO SCH ×2 (10:54→21:13)
[2018-01-25] MEDS: PANTOPRAZOLE 40 MG TAB PO SCH (10:54)
[2018-01-25] MEDS: ASPirin-EC 81 mg tab PO SCH (10:54)
[2018-01-25] MEDS: METOPROLOL SUCCINATE XL 50 MG TAB PO SCH (10:54)
[2018-01-25] MEDS: PRAVASTATIN SODIUM 20 MG TAB PO SCH (10:55)
[2018-01-25] MEDS: APIXABAN 2.5 MG TAB PO SCH ×2 (10:55→21:13)
[2018-01-25] MEDS: SODIUM CHLORIDE 0.9% 1,000 ML IV SCH ×2 (11:45→21:14)
[2018-01-25] MEDS: cloNIDine HCL 0.1 MG TAB PO PRN ×2 (14:27→22:33)
[2018-01-25] MEDS: LABETALOL HCL 5 MG/ML ML 20ML VIAL IV PRN (17:25)
[2018-01-25] MEDS: DILTIAZEM 125mg/125ml BAG KIT 125 ML IV SCH (18:45)
[2018-01-25] MEDS: MIDAZOLAM DRIP 50 mg/50mL 50 ML IV SCH (19:52)
[2018-01-26] VITALS (94 sets, daily range): BP systolic 113–187; BP diastolic 50–101
[2018-01-26] MEDS: LABETALOL HCL 5 MG/ML ML 20ML VIAL IV PRN ×2 (02:10→08:44)
[2018-01-26] MEDS: InsuLIN REG 1unit/0.01ml Soln (100units/ml) SC SCH ×6 (04:00→23:24)
[2018-01-26] MEDS: ACCU-CHEK COMFORT CURVE STRIP VI SCH ×6 (04:00→23:24)
[2018-01-26] MEDS: LEVOTHYROXINE SODIUM 50 MCG TAB PO SCH (06:33)
[2018-01-26] MEDS: SODIUM CHLORIDE 0.9% 1,000 ML IV SCH ×2 (07:45→17:45)
[2018-01-26 08:15] LABS: Eosinophils # (auto) 0 uL; Eosinophils % (auto) 0.1 % (0.0-7.0); Hemoglobin 10.2 g/dL (12.2-16.2); Lymphocytes # (auto) 0.7 uL; Nucleated Red Blood Cells % 0.1 %
[2018-01-26 08:17] LABS: Basophils # (auto) 0.1 uL; Basophils % (auto) 0.6 % (0.0-2.0); Hematocrit 31.7 % (36.0-46.0); Lymphocytes % (auto) 6.7 % (10.0-50.0); Mean Corpuscular Volume 81.1 fL (80.0-100.0); Monocytes # (auto) 0.5 uL; Monocytes % (auto) 4.7 % (0.0-12.0); Neutrophils # (auto) 8.9 uL; Neutrophils % (auto) 87.9 % (37.0-80.0); Platelet Count (auto) 132 10^3/uL (140-450); Red Blood Cells 3.91 10^6/uL (4.0-5.20); Red Cell Distribution Width 17.3 % (11.8-14.3); White Blood Cell 10.1 10^3/uL (4.4-10.8)
[2018-01-26 08:25] LABS: Albumin 2.9 g/dL (3.4-5.0); BUN/Creatinine Ratio 20.5; Calcium 7.7 mg/dL (8.5-10.1); Potassium 3.8 mmol/L (3.5-5.1)
[2018-01-26] MEDS: cefTRIAXone 1GM/10ml IVPUSH 10 ML IV SCH (08:39)
[2018-01-26 08:55] LABS: Bilirubin, Total 0.3 mg/dL (0.2-1.0); Total Protein 6.2 g/dL (6.4-8.2)
[2018-01-26] MEDS: [UNRECOGNIZED DRUG - OTHER] EACHEYE SCH ×2 (10:00→21:05)
[2018-01-26] MEDS: PANTOPRAZOLE 40 MG TAB PO SCH (11:02)
[2018-01-26] MEDS: ASPirin-EC 81 mg tab PO SCH (11:02)
[2018-01-26] MEDS: APIXABAN 2.5 MG TAB PO SCH ×2 (11:02→21:24)
[2018-01-26] MEDS: AMIODARONE HCL 200 MG TAB PO SCH ×2 (11:02→21:05)
[2018-01-26] MEDS: METOPROLOL SUCCINATE XL 50 MG TAB PO SCH (11:03)
[2018-01-26] MEDS: PRAVASTATIN SODIUM 20 MG TAB PO SCH (11:03)
[2018-01-26] MEDS: INSULIN LANTUS (GLARGINE) 1 /0.01ml (100units/ml) SC SCH ×2 (11:04→21:05)
[2018-01-26] MEDS ORDERED: VANCOMYCIN PER PHARMACY 0 MG IV SCH (11:30)
[2018-01-26] MEDS: FREE WATER GT SCH ×3 (12:00→23:25)
[2018-01-26] MEDS ORDERED: Glucerna 1.2 Cal 1Liter BOTTLE GT SCH (12:00)
[2018-01-26] MEDS ORDERED: VANCOMYCIN 1GM/250ML 250 ML IV ONE (13:00)
[2018-01-26] MEDS: fentaNYL Drip 2500mCg/250mlNS 250 ML IV SCH (14:00)
[2018-01-26] MEDS: PROPOFOL 100 ML IV SCH ×2 (17:04→21:32)
[2018-01-26] MEDS: DILTIAZEM 125mg/125ml BAG KIT 125 ML IV SCH (18:45)
[2018-01-26] MEDS: MIDAZOLAM DRIP 50 mg/50mL 50 ML IV SCH (19:52)
[2018-01-27] VITALS (107 sets, daily range): BP systolic 91–203; BP diastolic 42–123
[2018-01-27] MEDS: SODIUM CHLORIDE 0.9% 1,000 ML IV SCH ×2 (03:45→12:30)
[2018-01-27] MEDS: ACCU-CHEK COMFORT CURVE STRIP VI SCH ×6 (04:05→23:17)
[2018-01-27] MEDS: InsuLIN REG 1unit/0.01ml Soln (100units/ml) SC SCH ×6 (04:05→23:17)
[2018-01-27 04:20] LABS: Basophils # (auto) 0 uL; Basophils % (auto) 0.4 % (0.0-2.0); Eosinophils # (auto) 0.1 uL; Mean Corpuscular Volume 81.7 fL (80.0-100.0)
[2018-01-27 04:23] LABS: Eosinophils % (auto) 0.9 % (0.0-7.0); Hematocrit 31.3 % (36.0-46.0); Lymphocytes # (auto) 0.7 uL; Lymphocytes % (auto) 8.6 % (10.0-50.0); Mean Corpuscular Hemoglobin 26.2 pg (28.0-32.0); Monocytes # (auto) 0.3 uL; Monocytes % (auto) 4.6 % (0.0-12.0); Neutrophils # (auto) 6.5 uL; Neutrophils % (auto) 85.5 % (37.0-80.0); Nucleated Red Blood Cells % 0.1 %; Platelet Count (auto) 125 10^3/uL (140-450); Red Blood Cells 3.84 10^6/uL (4.0-5.20); Red Cell Distribution Width 17.6 % (11.8-14.3); White Blood Cell 7.6 10^3/uL (4.4-10.8)
[2018-01-27 04:42] LABS: Albumin 2.6 g/dL (3.4-5.0); BUN/Creatinine Ratio 20.8; Bilirubin, Total 0.3 mg/dL (0.2-1.0); Calcium 7.8 mg/dL (8.5-10.1); Potassium 3.4 mmol/L (3.5-5.1); Total Protein 5.9 g/dL (6.4-8.2)
[2018-01-27] MEDS: FREE WATER GT SCH ×4 (05:30→23:17)
[2018-01-27] MEDS ORDERED: POTASSIUM CHL 20MEQ/100ML 200 ML IV ONE (05:34)
[2018-01-27] MEDS: POTASSIUM CHL 20MEQ/100ML 100 ML IV SCH ×2 (05:37→07:13)
[2018-01-27] MEDS ORDERED: FUROSEMIDE 40 MG/4 ML VIAL IV ONE ×2 (06:00→12:15)
[2018-01-27] MEDS: LEVOTHYROXINE SODIUM 50 MCG TAB PO SCH (06:18)
[2018-01-27] MEDS: LABETALOL HCL 5 MG/ML ML 20ML VIAL IV PRN (08:17)
[2018-01-27] MEDS: cefTRIAXone 1GM/10ml IVPUSH 10 ML IV SCH (09:07)
[2018-01-27] MEDS: PROPOFOL 100 ML IV SCH (09:18)
[2018-01-27] MEDS: ENALAPRILAT 1.25 MG/ML-1ML VIAL IV PRN (09:30)
[2018-01-27] MEDS: AMIODARONE HCL 200 MG TAB PO SCH ×2 (10:00→21:28)
[2018-01-27] MEDS: [UNRECOGNIZED DRUG - OTHER] EACHEYE SCH ×2 (10:00→21:32)
[2018-01-27] MEDS: INSULIN LANTUS (GLARGINE) 1 /0.01ml (100units/ml) SC SCH ×2 (10:00→21:28)
[2018-01-27] MEDS: METOPROLOL SUCCINATE XL 50 MG TAB PO SCH (10:50)
[2018-01-27] MEDS: ASPirin-EC 81 mg tab PO SCH (10:50)
[2018-01-27] MEDS: PANTOPRAZOLE 40 MG TAB PO SCH (10:51)
[2018-01-27] MEDS: APIXABAN 2.5 MG TAB PO SCH ×2 (10:51→21:28)
[2018-01-27] MEDS: PRAVASTATIN SODIUM 20 MG TAB PO SCH (10:51)
[2018-01-27] MEDS: fentaNYL Drip 2500mCg/250mlNS 250 ML IV SCH (11:59)
[2018-01-27] MEDS: DEXMEDETOMIDINE HCL 400 MCG in D5W 5% 96 ML IV SCH (12:57)
[2018-01-27] MEDS ORDERED: VANCOMYCIN 1GM/250ML 250 ML IV SCH (13:00)
[2018-01-27] MEDS: MIDAZOLAM DRIP 50 mg/50mL 50 ML IV SCH (19:52)
[2018-01-28] VITALS (100 sets, daily range): BP systolic 94–205; BP diastolic 49–113
[2018-01-28 02:41] LABS: Basophils # (auto) 0.1 uL; Eosinophils # (auto) 0.1 uL; Lymphocytes # (auto) 0.6 uL; Red Blood Cells 4.25 10^6/uL (4.0-5.20)
[2018-01-28 02:42] LABS: Basophils % (auto) 1.1 % (0.0-2.0); Eosinophils % (auto) 0.9 % (0.0-7.0); Hematocrit 34.1 % (36.0-46.0); Hemoglobin 10.7 g/dL (12.2-16.2); Lymphocytes % (auto) 7.1 % (10.0-50.0); Mean Corpuscular Hemoglobin 25.1 pg (28.0-32.0); Mean Corpuscular Hgb Conc. 31.3 g/dL (32.0-36.0); Mean Corpuscular Volume 80.3 fL (80.0-100.0); Monocytes # (auto) 0.6 uL; Monocytes % (auto) 7.3 % (0.0-12.0); Neutrophils # (auto) 6.6 uL; Neutrophils % (auto) 83.6 % (37.0-80.0); Platelet Count (auto) 152 10^3/uL (140-450); Red Cell Distribution Width 17.3 % (11.8-14.3); White Blood Cell 7.9 10^3/uL (4.4-10.8)
[2018-01-28 03:00] LABS: Albumin 2.6 g/dL (3.4-5.0); BUN/Creatinine Ratio 19.5; Calcium 8.1 mg/dL (8.5-10.1)
[2018-01-28 03:03] LABS: Bilirubin, Total 0.3 mg/dL (0.2-1.0); Total Protein 6.2 g/dL (6.4-8.2)
[2018-01-28] MEDS: InsuLIN REG 1unit/0.01ml Soln (100units/ml) SC SCH ×6 (03:25→23:56)
[2018-01-28] MEDS: ACCU-CHEK COMFORT CURVE STRIP VI SCH ×6 (03:25→23:46)
[2018-01-28] MEDS ORDERED: FUROSEMIDE 20 MG/2 ML VIAL IV ONE (06:00)
[2018-01-28] MEDS: FREE WATER GT SCH ×4 (06:02→23:46)
[2018-01-28] MEDS: LEVOTHYROXINE SODIUM 50 MCG TAB PO SCH (06:34)
[2018-01-28] MEDS: SODIUM CHLORIDE 0.9% 1,000 ML IV SCH ×2 (08:30→22:54)
[2018-01-28] MEDS: cefTRIAXone 1GM/10ml IVPUSH 10 ML IV SCH (09:12)
[2018-01-28] MEDS: DEXMEDETOMIDINE HCL 400 MCG in D5W 5% 96 ML IV SCH (09:48)
[2018-01-28] MEDS: PROPOFOL 100 ML IV SCH ×2 (10:00→23:45)
[2018-01-28] MEDS: [UNRECOGNIZED DRUG - OTHER] EACHEYE SCH ×2 (10:00→22:00)
[2018-01-28] MEDS: INSULIN LANTUS (GLARGINE) 1 /0.01ml (100units/ml) SC SCH ×2 (10:00→22:39)
[2018-01-28 10:32] LABS: Hematocrit 35.1 % (36.0-46.0); Hemoglobin 10.9 g/dL (12.2-16.2)
[2018-01-28] MEDS: AMIODARONE HCL 200 MG TAB PO SCH ×2 (10:46→22:39)
[2018-01-28] MEDS: METOPROLOL SUCCINATE XL 50 MG TAB PO SCH (10:47)
[2018-01-28] MEDS: APIXABAN 2.5 MG TAB PO SCH (10:47)
[2018-01-28] MEDS: PRAVASTATIN SODIUM 20 MG TAB PO SCH (10:47)
[2018-01-28] MEDS: PANTOPRAZOLE 40 MG TAB PO SCH (10:48)
[2018-01-28] MEDS: fentaNYL Drip 2500mCg/250mlNS 250 ML IV SCH (11:59)
[2018-01-28] MEDS: ENALAPRILAT 1.25 MG/ML-1ML VIAL IV PRN ×2 (13:00→20:28)
[2018-01-28] MEDS: LABETALOL HCL 5 MG/ML ML 20ML VIAL IV PRN ×2 (18:05→23:45)
[2018-01-28] MEDS ORDERED: EPINEPHrine HCL 0.5 ML NEB ONE (19:11)
[2018-01-28] MEDS ORDERED: EPINEPHrine HCL 0.5 ML NEB NEB ONE (19:15)
[2018-01-28] MEDS: MIDAZOLAM DRIP 50 mg/50mL 50 ML IV SCH (20:47)
[2018-01-28] MEDS: hydrALAZINE HCL 20 MG/ML VL IV PRN ×2 (21:27→21:36)
[2018-01-28] MEDS ORDERED: APIXABAN 2.5 MG TAB PO SCH (22:00)
[2018-01-28] MEDS: DOXYCYCLINE 100MG/250ML 250 ML IV SCH (22:38)
[2018-01-29] VITALS (96 sets, daily range): BP systolic 87–181; BP diastolic 45–99
[2018-01-29] MEDS: hydrALAZINE HCL 20 MG/ML VL IV PRN ×2 (01:22→01:31)
[2018-01-29] MEDS: ACCU-CHEK COMFORT CURVE STRIP VI SCH ×5 (03:35→23:52)
[2018-01-29] MEDS: InsuLIN REG 1unit/0.01ml Soln (100units/ml) SC SCH ×5 (03:41→23:59)
[2018-01-29] MEDS: cloNIDine HCL 0.1 MG TAB PO PRN (03:44)
[2018-01-29 03:49] LABS: Mean Corpuscular Hemoglobin 25.2 pg (28.0-32.0); White Blood Cell 13.7 10^3/uL (4.4-10.8)
[2018-01-29 03:51] LABS: Hematocrit 38.6 % (36.0-46.0); Hemoglobin 12.1 g/dL (12.2-16.2); Mean Corpuscular Hgb Conc. 31.4 g/dL (32.0-36.0); Mean Corpuscular Volume 80.2 fL (80.0-100.0); Platelet Count (auto) 214 10^3/uL (140-450); Red Blood Cells 4.82 10^6/uL (4.0-5.20); Red Cell Distribution Width 17.4 % (11.8-14.3)
[2018-01-29 04:07] LABS: Basophils % (manual) 0 (0.0-2.0); Blast Cells 0; Calcium 8.5 mg/dL (8.5-10.1); Eosinophils % (manual) 0 (0-7); Metamyelocytes % 0; Myelocytes % 0; Promyelocytes % 0; Reactive Lymphocytes 0
[2018-01-29 04:16] LABS: Albumin 2.8 g/dL (3.4-5.0); BUN/Creatinine Ratio 20.7; Bilirubin, Total 0.5 mg/dL (0.2-1.0); Total Protein 7.1 g/dL (6.4-8.2)
[2018-01-29 04:37] LABS: Band Neutrophils % (manual) 2; Lymphocytes % (manual) 6 (10.0-50.0); Monocytes % (manual) 1 (0-12)
[2018-01-29] MEDS: FREE WATER GT SCH (06:00)
[2018-01-29] MEDS: LEVOTHYROXINE SODIUM 50 MCG TAB PO SCH (06:33)
[2018-01-29] MEDS: LABETALOL HCL 5 MG/ML ML 20ML VIAL IV PRN (08:42)
[2018-01-29] MEDS: cefTRIAXone 1GM/10ml IVPUSH 10 ML IV SCH (08:45)
[2018-01-29] MEDS: DOXYCYCLINE 100MG/250ML 250 ML IV SCH (08:48)
[2018-01-29] MEDS: INSULIN LANTUS (GLARGINE) 1 /0.01ml (100units/ml) SC SCH ×2 (08:54→22:29)
[2018-01-29] MEDS: PANTOPRAZOLE 40 MG TAB PO SCH (08:56)
[2018-01-29] MEDS: METOPROLOL SUCCINATE XL 50 MG TAB PO SCH (08:57)
[2018-01-29] MEDS: AMIODARONE HCL 200 MG TAB PO SCH ×2 (08:57→22:28)
[2018-01-29] MEDS: PRAVASTATIN SODIUM 20 MG TAB PO SCH (09:00)
[2018-01-29] MEDS: [UNRECOGNIZED DRUG - OTHER] EACHEYE SCH ×2 (10:00→22:00)
[2018-01-29] MEDS ORDERED: FUROSEMIDE 40 MG/4 ML VIAL IV ONE (11:30)
[2018-01-29] MEDS: DEXMEDETOMIDINE HCL 400 MCG in D5W 5% 96 ML IV SCH (11:34)
[2018-01-29] MEDS ORDERED: DEXTROSE (50%) 50ML SYRG IV PRN (11:45)
[2018-01-29] MEDS ORDERED: AZITHROMYCIN 500MG/ 250ML 250 ML IV ONE (12:00)
[2018-01-29] MEDS: cloNIDine HCL 0.1 MG TAB PO SCH ×2 (13:37→22:28)
[2018-01-29] MEDS: IPRATROPIUM BROM 0.5 MG/2.5ML INH SOL NEB SCH ×3 (14:14→22:10)
[2018-01-29] MEDS: ALBUTEROL SULF 2.5 MG/0.5ML(0.5%) NEB SOLN NEB SCH ×3 (14:14→22:10)
[2018-01-29 18:45] LABS: Urine Bacteria NONE SEEN /hpf (None Seen); Urine Blood 3+ /uL (Negative); Urine Mucus FEW (None Seen); Urine Specific Gravity 1.012 (1.001-1.035); Urine WBC 12 /hpf (0 - 5)
[2018-01-30] VITALS (45 sets, daily range): BP systolic 93–175; BP diastolic 48–115
[2018-01-30] MEDS: IPRATROPIUM BROM 0.5 MG/2.5ML INH SOL NEB SCH ×6 (02:24→22:35)
[2018-01-30] MEDS: ALBUTEROL SULF 2.5 MG/0.5ML(0.5%) NEB SOLN NEB SCH ×6 (02:24→22:36)
[2018-01-30 03:56] LABS: Mean Corpuscular Volume 79.5 fL (80.0-100.0)
[2018-01-30 03:59] LABS: Hematocrit 33.9 % (36.0-46.0); Hemoglobin 10.9 g/dL (12.2-16.2); Mean Corpuscular Hemoglobin 25.4 pg (28.0-32.0); Platelet Count (auto) 189 10^3/uL (140-450); Red Blood Cells 4.27 10^6/uL (4.0-5.20); Red Cell Distribution Width 17.2 % (11.8-14.3); White Blood Cell 8.6 10^3/uL (4.4-10.8)
[2018-01-30 04:11] LABS: BUN/Creatinine Ratio 21.5; Calcium 8.2 mg/dL (8.5-10.1)
[2018-01-30 04:15] LABS: Basophils % (manual) 0 (0.0-2.0); Blast Cells 0; Metamyelocytes % 0; Myelocytes % 0; Promyelocytes % 0; Reactive Lymphocytes 0
[2018-01-30 04:46] LABS: Band Neutrophils % (manual) 2; Eosinophils % (manual) 1 (0-7); Lymphocytes % (manual) 8 (10.0-50.0); Monocytes % (manual) 6 (0-12)
[2018-01-30] MEDS: ACCU-CHEK COMFORT CURVE STRIP VI SCH ×3 (06:30→18:29)
[2018-01-30] MEDS: InsuLIN REG 1unit/0.01ml Soln (100units/ml) SC SCH ×3 (06:39→18:29)
[2018-01-30] MEDS: LEVOTHYROXINE SODIUM 50 MCG TAB PO SCH (06:39)
[2018-01-30] MEDS: cloNIDine HCL 0.1 MG TAB PO SCH ×3 (06:43→22:08)
[2018-01-30] MEDS ORDERED: FUROSEMIDE 40 MG/4 ML VIAL IV SCH (10:00)
[2018-01-30] MEDS: [UNRECOGNIZED DRUG - OTHER] EACHEYE SCH ×2 (10:00→22:00)
[2018-01-30] MEDS ORDERED: POTASSIUM CHL 20 Meq TABLET PO SCH (10:00)
[2018-01-30] MEDS: cefTRIAXone 1GM/10ml IVPUSH 10 ML IV SCH (10:07)
[2018-01-30] MEDS: AZITHROMYCIN 500MG/ 250ML 250 ML IV SCH (10:07)
[2018-01-30] MEDS: AMIODARONE HCL 200 MG TAB PO SCH ×2 (10:08→22:08)
[2018-01-30] MEDS: PRAVASTATIN SODIUM 20 MG TAB PO SCH (10:08)
[2018-01-30] MEDS: METOPROLOL SUCCINATE XL 50 MG TAB PO SCH (10:08)
[2018-01-30] MEDS: PANTOPRAZOLE 40 MG TAB PO SCH (10:08)
[2018-01-30] MEDS: INSULIN LANTUS (GLARGINE) 1 /0.01ml (100units/ml) SC SCH ×2 (10:09→22:18)
[2018-01-30] MEDS: APIXABAN 2.5 MG TAB PO SCH ×2 (14:13→22:09)
[2018-01-30] MEDS: hydrALAZINE HCL 20 MG/ML VL IV PRN (19:15)
[2018-01-30] MEDS: LABETALOL HCL 5 MG/ML ML 20ML VIAL IV PRN (23:26)
[2018-01-31] VITALS (14 sets, daily range): BP systolic 108–167; BP diastolic 45–98
[2018-01-31] MEDS: InsuLIN REG 1unit/0.01ml Soln (100units/ml) SC SCH ×5 (00:13→23:55)
[2018-01-31] MEDS: ACCU-CHEK COMFORT CURVE STRIP VI SCH ×5 (00:13→23:55)
[2018-01-31] MEDS: ALBUTEROL SULF 2.5 MG/0.5ML(0.5%) NEB SOLN NEB SCH ×6 (02:42→22:44)
[2018-01-31] MEDS: IPRATROPIUM BROM 0.5 MG/2.5ML INH SOL NEB SCH ×6 (02:42→22:44)
[2018-01-31] MEDS: hydrALAZINE HCL 20 MG/ML VL IV PRN (04:53)
[2018-01-31] MEDS: cloNIDine HCL 0.1 MG TAB PO SCH ×3 (06:27→22:33)
[2018-01-31] MEDS: LEVOTHYROXINE SODIUM 50 MCG TAB PO SCH (06:28)
[2018-01-31 06:30] LABS: Basophils # (auto) 0.1 uL; Basophils % (auto) 0.6 % (0.0-2.0); Eosinophils # (auto) 0.4 uL
[2018-01-31 06:34] LABS: Eosinophils % (auto) 4.1 % (0.0-7.0); Hematocrit 35.7 % (36.0-46.0); Hemoglobin 11.7 g/dL (12.2-16.2); Lymphocytes % (auto) 10.9 % (10.0-50.0); Mean Corpuscular Hemoglobin 25.8 pg (28.0-32.0); Mean Corpuscular Hgb Conc. 32.8 g/dL (32.0-36.0); Mean Corpuscular Volume 78.5 fL (80.0-100.0); Monocytes # (auto) 0.8 uL; Neutrophils # (auto) 6.9 uL; Neutrophils % (auto) 75.4 % (37.0-80.0); Platelet Count (auto) 222 10^3/uL (140-450); Red Blood Cells 4.54 10^6/uL (4.0-5.20); Red Cell Distribution Width 17.2 % (11.8-14.3); White Blood Cell 9.2 10^3/uL (4.4-10.8)
[2018-01-31 08:37] LABS: BUN/Creatinine Ratio 20.4; Calcium 8.5 mg/dL (8.5-10.1); Potassium 3.2 mmol/L (3.5-5.1)
[2018-01-31] MEDS: cefTRIAXone 1GM/10ml IVPUSH 10 ML IV SCH (09:43)
[2018-01-31] MEDS: AZITHROMYCIN 500MG/ 250ML 250 ML IV SCH (09:43)
[2018-01-31] MEDS: PRAVASTATIN SODIUM 20 MG TAB PO SCH (09:44)
[2018-01-31] MEDS: AMIODARONE HCL 200 MG TAB PO SCH ×2 (09:44→22:32)
[2018-01-31] MEDS: PANTOPRAZOLE 40 MG TAB PO SCH (09:44)
[2018-01-31] MEDS: APIXABAN 2.5 MG TAB PO SCH ×2 (09:44→22:33)
[2018-01-31] MEDS ORDERED: POTASSIUM CHL 20 Meq TABLET PO ONE ×2 (09:45→15:45)
[2018-01-31] MEDS: METOPROLOL SUCCINATE XL 50 MG TAB PO SCH (09:45)
[2018-01-31] MEDS: [UNRECOGNIZED DRUG - OTHER] EACHEYE SCH ×2 (09:45→22:00)
[2018-01-31] MEDS: INSULIN LANTUS (GLARGINE) 1 /0.01ml (100units/ml) SC SCH ×2 (09:45→22:00)
[2018-01-31] MEDS ORDERED: MORPHINE SULF INJ 2 MG/ML SYRINGE 1ML IV PRN ×2 (15:45)
[2018-01-31] MEDS ORDERED: HYDROcodone-ACET 5/325MG TAB PO PRN (15:45)
[2018-01-31] MEDS ORDERED: FUROSEMIDE 40 MG TAB PO ONE (15:45)
[2018-01-31] MEDS ORDERED: TEMAZEPAM 15 MG CAP PO PRN (15:45)
[2018-01-31] MEDS ORDERED: LORazepam 2MG/ML-1ML VIAL IV PRN (15:45)
[2018-01-31] MEDS ORDERED: FURO40TA4 PO (16:54)
[2018-01-31] MEDS ORDERED: APIX2.5T PO (16:54)
[2018-02-01] MEDS: IPRATROPIUM BROM 0.5 MG/2.5ML INH SOL NEB SCH ×4 (02:00→14:36)
[2018-02-01] MEDS: ALBUTEROL SULF 2.5 MG/0.5ML(0.5%) NEB SOLN NEB SCH ×4 (02:00→14:26)
[2018-02-01 05:00] VITALS: BP 168/93
[2018-02-01] MEDS: cloNIDine HCL 0.1 MG TAB PO SCH (05:57)
[2018-02-01] MEDS: LEVOTHYROXINE SODIUM 50 MCG TAB PO SCH (05:58)
[2018-02-01] MEDS: ACCU-CHEK COMFORT CURVE STRIP VI SCH ×2 (05:59→12:00)
[2018-02-01] MEDS: InsuLIN REG 1unit/0.01ml Soln (100units/ml) SC SCH ×2 (06:00→12:00)
[2018-02-01 06:53] LABS: Calcium 8.4 mg/dL (8.5-10.1); Potassium 3.3 mmol/L (3.5-5.1)
[2018-02-01 06:59] LABS: BUN/Creatinine Ratio 19.4
[2018-02-01 08:00] VITALS: BP 151/90
[2018-02-01] MEDS: cefTRIAXone 1GM/10ml IVPUSH 10 ML IV SCH (09:19)
[2018-02-01] MEDS ORDERED: POTA20TA53 PO (09:20)
[2018-02-01] MEDS ORDERED: AZIT500T4 PO (09:24)
[2018-02-01] MEDS: AMIODARONE HCL 200 MG TAB PO SCH (09:38)
[2018-02-01] MEDS: APIXABAN 2.5 MG TAB PO SCH (09:39)
[2018-02-01] MEDS: PRAVASTATIN SODIUM 20 MG TAB PO SCH (09:39)
[2018-02-01] MEDS: PANTOPRAZOLE 40 MG TAB PO SCH (09:39)
[2018-02-01] MEDS: METOPROLOL SUCCINATE XL 50 MG TAB PO SCH (09:40)
[2018-02-01] MEDS: INSULIN LANTUS (GLARGINE) 1 /0.01ml (100units/ml) SC SCH (10:00)
[2018-02-01] MEDS ORDERED: POTASSIUM CHL 20 Meq TABLET PO SCH ×2 (10:00)
[2018-02-01] MEDS: [UNRECOGNIZED DRUG - OTHER] EACHEYE SCH (10:00)
[2018-02-01] MEDS ORDERED: FUROSEMIDE 40 MG TAB PO SCH (10:00)
[2018-02-01] MEDS: AZITHROMYCIN 500MG/ 250ML 250 ML IV SCH (10:00)
[2018-02-01 15:27] VITALS: BP 147/91
== END 2018-02-01 16:30 | disposition hospice, home (50) | DRG 207 ==
LOC: EDBD 16:41 → ER 16:41 → TELE 16:42 → DOU IN ICU 01-24 21:36 → ICU WEST 01-26 03:39 → TELE-WESTW 01-31 12:46
PROVIDERS: ADMIT Internal Medicine; ATTEND Internal Medicine
PROC: 5A1955Z Respiratory Ventilation, Greater than 96 Consecutive Hours (ICD-10-PCS; principal; 2018-01-24)
PROC: 0BH17EZ Insertion of Endotracheal Airway into Trachea, Via Natural or Artificial Opening (ICD-10-PCS; 2018-01-24)
PROC: 02HV33Z Insertion of Infusion Device into Superior Vena Cava, Percutaneous Approach (ICD-10-PCS; 2018-01-24)
DX: J96.21 Acute and chronic respiratory failure with hypoxia (principal); I50.33 Acute on chronic diastolic (congestive) heart failure; E11.10 Type 2 diabetes mellitus with ketoacidosis without coma; G93.41 Metabolic encephalopathy; N17.0 Acute kidney failure with tubular necrosis; J69.0 Pneumonitis due to inhalation of food and vomit; I13.0 Hypertensive heart and chronic kidney disease with heart failure and stage 1 through stage 4 chronic kidney disease, or unspecified chronic kidney disease; E44.0 Moderate protein-calorie malnutrition; I47.1 Supraventricular tachycardia; J44.0 Chronic obstructive pulmonary disease with (acute) lower respiratory infection; E78.5 Hyperlipidemia, unspecified; R56.9 Unspecified convulsions; I25.10 Atherosclerotic heart disease of native coronary artery without angina pectoris; Z80.0 Family history of malignant neoplasm of digestive organs; E89.0 Postprocedural hypothyroidism; F41.9 Anxiety disorder, unspecified; I48.2 Chronic atrial fibrillation; E11.22 Type 2 diabetes mellitus with diabetic chronic kidney disease; E11.622 Type 2 diabetes mellitus with other skin ulcer; L98.499 Non-pressure chronic ulcer of skin of other sites with unspecified severity; N18.3 Chronic kidney disease, stage 3 (moderate); Z79.01 Long term (current) use of anticoagulants; Z79.4 Long term (current) use of insulin; I25.2 Old myocardial infarction; Z79.82 Long term (current) use of aspirin; Z82.49 Family history of ischemic heart disease and other diseases of the circulatory system; Z83.3 Family history of diabetes mellitus; Z85.038 Personal history of other malignant neoplasm of large intestine; Z87.891 Personal history of nicotine dependence; Z95.5 Presence of coronary angioplasty implant and graft; Z79.899 Other long term (current) drug therapy; Z68.24 Body mass index [BMI] 24.0-24.9, adult
CPT/HCPCS: 31500; 36415; 36600; 70450; 71045; 76604; 80048; 80053; 80202; 80307; 80320; 81001; 82010; 82550; 82805; 82962; 83036; 83735; 83880; 84484; 85007; 85014; 85018; 85025; 85027; 85379; 85610; 85652; 85730; 86141; 87040; 87070; 87081; 87086; 87205; 93005; 93306; 94002; 94003; 94640; 94668; 96365; 97163; 99291; A6257; J0330; J0696; J1815; J2001; J2250; J2704; J3480; J3490; J7060; P9047

== ENCOUNTER 2018-02-12 20:58 | Inpatient (IN) | payer MEDICARE, MEDICAID ==
[~2018-02-12] VITALS: Ht 170.2 cm; Wt 74.9 kg
[~2018-02-12 20:58] MED LIST changes: +APIX2.5T PO; +AZIT500T4 PO; -DABI75CA4 PO; +FURO40TA4 PO; +POTA20TA53 PO
[2018-02-12 22:02] LABS: Basophils # (auto) 0.1 uL; Eosinophils # (auto) 0.1 uL; Lymphocytes # (auto) 0.5 uL; Monocytes # (auto) 0.3 uL; Monocytes % (auto) 4.2 % (0.0-12.0); Nucleated Red Blood Cells % 0.1 %
[2018-02-12 22:06] LABS: Basophils % (auto) 0.7 % (0.0-2.0); Eosinophils % (auto) 1.6 % (0.0-7.0); Hematocrit 32.9 % (36.0-46.0); Hemoglobin 10.7 g/dL (12.2-16.2); Lymphocytes % (auto) 6.8 % (10.0-50.0); Mean Corpuscular Hgb Conc. 32.5 g/dL (32.0-36.0); Mean Corpuscular Volume 79.8 fL (80.0-100.0); Neutrophils % (auto) 86.7 % (37.0-80.0); Platelet Count (auto) 169 10^3/uL (140-450); Red Blood Cells 4.12 10^6/uL (4.0-5.20); Red Cell Distribution Width 17.5 % (11.8-14.3)
[2018-02-12 22:09] LABS: INR 0.95 (0.9-1.15); Prothrombin Time 10.2 sec (9.27-12.13)
[2018-02-12 22:13] LABS: Anion Gap 8 (5-15); BUN/Creatinine Ratio 13.5; Blood Urea Nitrogen 21 mg/dL (7-18); Carbon Dioxide 26 mmol/L (21-32); Chloride 97 mmol/L (98-107); GFR African American 41 mL/min; Glucose 354 mg/dL (74-106); Potassium 3.6 mmol/L (3.5-5.1); Sodium 131 mmol/L (136-145)
[2018-02-12 22:14] LABS: Alanine Aminotransferase 17 U/L (13-56); Albumin 2.9 g/dL (3.4-5.0); Alkaline Phosphatase 161 U/L (45-117); Aspartate Aminotransferase 14 U/L (15-37); Bilirubin, Total 0.5 mg/dL (0.2-1.0); Calcium 7.7 mg/dL (8.5-10.1); GFR Non-African American 34 mL/min; Total Protein 6.8 g/dL (6.4-8.2)
[2018-02-12] MEDS ORDERED: cloNIDine HCL 0.1 MG TAB PO ONE (22:30)
[2018-02-12] MEDS ORDERED: FUROSEMIDE 20 MG/2 ML VIAL IV ONE (22:30)
[2018-02-12] MEDS ORDERED: cloNIDine HCL 0.1 MG TAB ONE (23:15)
[2018-02-12 23:31] LABS: Urine Bacteria NONE SEEN /hpf (None Seen); Urine Blood Negative /uL (Negative); Urine Budding Yeast MODERATE /hpf (None Seen); Urine Specific Gravity 1.007 (1.001-1.035); Urine WBC 5 /hpf (0 - 5); Urine WBC Clumps PRESENT /hpf (None Seen)
[2018-02-13] MEDS ORDERED: cloNIDine HCL 0.1 MG TAB PO ONE
[2018-02-13] MEDS ORDERED: LABETALOL HCL 200 MG TAB PO ONE (01:45)
[2018-02-13] MEDS ORDERED: ALBUTEROL SULF 2.5 MG/0.5ML(0.5%) NEB SOLN NEB PRN (02:45)
[2018-02-13] MEDS ORDERED: NITROGLYCERIN 0.4 MG SL TAB SL PRN (02:45)
[2018-02-13] MEDS ORDERED: MORPHINE SULF INJ 2 MG/ML SYRINGE 1ML IV PRN (02:45)
[2018-02-13] MEDS ORDERED: TEMAZEPAM 15 MG CAP PO PRN (02:45)
[2018-02-13] MEDS ORDERED: ONDANSETRON HCL 4 MG/2 ML VIAL IV PRN (02:45)
[2018-02-13] MEDS ORDERED: ACETAMINOPHEN 325 MG TAB PO PRN (02:45)
[2018-02-13] MEDS ORDERED: DEXTROSE (50%) 50ML SYRG IV PRN (02:45)
[2018-02-13] MEDS ORDERED: HYDROcodone-ACET 5/325MG TAB PO PRN (02:45)
[2018-02-13] MEDS ORDERED: AZITHROMYCIN 500MG/ 250ML 250 ML IV ONE (03:00)
[2018-02-13] MEDS ORDERED: cefTRIAXone 1GM/10ml IVPUSH 10 ML IV ONE (04:00)
[2018-02-13] MEDS: FUROSEMIDE 20 MG/2 ML VIAL IV SCH ×2 (06:54→18:54)
[2018-02-13] MEDS: cloNIDine HCL 0.1 MG TAB PO SCH ×3 (06:55→21:28)
[2018-02-13] MEDS: InsuLIN REG 1unit/0.01ml Soln (100units/ml) SC SCH ×4 (06:56→23:50)
[2018-02-13] MEDS: LEVOTHYROXINE SODIUM 50 MCG TAB PO SCH (06:56)
[2018-02-13] MEDS: ACCU-CHEK COMFORT CURVE STRIP VI SCH ×4 (06:56→23:50)
[2018-02-13] MEDS: PANTOPRAZOLE 40 MG TAB PO SCH (06:56)
[2018-02-13] MEDS: cefTRIAXone 1GM/10ml IVPUSH 10 ML IV SCH (07:51)
[2018-02-13 09:12] VITALS: BP 160/94
[2018-02-13] MEDS: POTASSIUM CHL 20 Meq TABLET PO SCH (10:59)
[2018-02-13] MEDS: AMIODARONE HCL 200 MG TAB PO SCH ×2 (11:00→21:28)
[2018-02-13] MEDS: METOPROLOL SUCCINATE XL 50 MG TAB PO SCH (11:00)
[2018-02-13] MEDS: APIXABAN 2.5 MG TAB PO SCH ×2 (11:00→21:28)
[2018-02-13 12:42] VITALS: BP 158/93
[2018-02-13 15:42] VITALS: BP 158/93
[2018-02-13 16:39] VITALS: BP_SYST 162; BP_SYST 179; BP_DIAS 101; BP_DIAS 115
[2018-02-13] MEDS: ATORVASTATIN 20 MG TAB PO SCH (21:28)
[2018-02-13 22:00] VITALS: BP 132/67
[2018-02-13] MEDS ORDERED: PRAVASTATIN SODIUM 20 MG TAB PO SCH (22:00)
[2018-02-14 05:00] VITALS: BP_SYST 0; BP_SYST 151; BP_DIAS 72
[2018-02-14] MEDS: InsuLIN REG 1unit/0.01ml Soln (100units/ml) SC SCH ×3 (06:00→17:53)
[2018-02-14] MEDS: cloNIDine HCL 0.1 MG TAB PO SCH ×3 (06:00→21:16)
[2018-02-14] MEDS: FUROSEMIDE 20 MG/2 ML VIAL IV SCH ×2 (06:11→17:53)
[2018-02-14] MEDS: ACCU-CHEK COMFORT CURVE STRIP VI SCH ×3 (06:12→17:53)
[2018-02-14] MEDS: LEVOTHYROXINE SODIUM 50 MCG TAB PO SCH (06:14)
[2018-02-14] MEDS: PANTOPRAZOLE 40 MG TAB PO SCH (06:50)
[2018-02-14 07:03] LABS: Basophils # (auto) 0 uL; Basophils % (auto) 0.5 % (0.0-2.0); Eosinophils # (auto) 0.1 uL; Eosinophils % (auto) 1.5 % (0.0-7.0); Hemoglobin 10.1 g/dL (12.2-16.2); Lymphocytes # (auto) 0.6 uL; Monocytes # (auto) 0.3 uL; Neutrophils # (auto) 5.6 uL
[2018-02-14 07:07] LABS: Hematocrit 30.4 % (36.0-46.0); Lymphocytes % (auto) 8.9 % (10.0-50.0); Mean Corpuscular Hgb Conc. 33.1 g/dL (32.0-36.0); Mean Corpuscular Volume 78.4 fL (80.0-100.0); Monocytes % (auto) 4.7 % (0.0-12.0); Neutrophils % (auto) 84.4 % (37.0-80.0); Platelet Count (auto) 149 10^3/uL (140-450); Red Blood Cells 3.88 10^6/uL (4.0-5.20); Red Cell Distribution Width 18.4 % (11.8-14.3); White Blood Cell 6.6 10^3/uL (4.4-10.8)
[2018-02-14 07:13] LABS: Albumin 2.6 g/dL (3.4-5.0); BUN/Creatinine Ratio 11.8; Calcium 7.9 mg/dL (8.5-10.1); Potassium 3.4 mmol/L (3.5-5.1)
[2018-02-14 07:17] LABS: Bilirubin, Total 0.5 mg/dL (0.2-1.0); Total Protein 6.1 g/dL (6.4-8.2)
[2018-02-14 08:00] VITALS: BP 151/72
[2018-02-14 09:00] VITALS: BP 182/104
[2018-02-14] MEDS: APIXABAN 2.5 MG TAB PO SCH ×2 (09:57→21:15)
[2018-02-14] MEDS: AMIODARONE HCL 200 MG TAB PO SCH ×2 (09:57→21:16)
[2018-02-14] MEDS: cefTRIAXone 1GM/10ml IVPUSH 10 ML IV SCH (09:57)
[2018-02-14] MEDS: AZITHROMYCIN 500MG/ 250ML 250 ML IV SCH (09:57)
[2018-02-14] MEDS: POTASSIUM CHL 20 Meq TABLET PO SCH (09:58)
[2018-02-14] MEDS: METOPROLOL SUCCINATE XL 50 MG TAB PO SCH (09:58)
[2018-02-14] MEDS: LORazepam 0.5 MG TAB PO SCH ×2 (12:20→19:59)
[2018-02-14 13:05] VITALS: BP 190/118
[2018-02-14 17:00] VITALS: BP 135/68
[2018-02-14] MEDS: ATORVASTATIN 20 MG TAB PO SCH (21:16)
[2018-02-14 22:00] VITALS: BP 131/69
[2018-02-15] MEDS: ACCU-CHEK COMFORT CURVE STRIP VI SCH ×3 (00:03→13:54)
[2018-02-15] MEDS: InsuLIN REG 1unit/0.01ml Soln (100units/ml) SC SCH ×3 (00:05→13:54)
[2018-02-15] MEDS: LORazepam 0.5 MG TAB PO SCH ×2 (04:06→13:43)
[2018-02-15 05:00] VITALS: BP 152/101
[2018-02-15] MEDS: FUROSEMIDE 20 MG/2 ML VIAL IV SCH (06:19)
[2018-02-15] MEDS: LEVOTHYROXINE SODIUM 50 MCG TAB PO SCH (06:19)
[2018-02-15] MEDS: cloNIDine HCL 0.1 MG TAB PO SCH ×2 (06:19→13:55)
[2018-02-15] MEDS: PANTOPRAZOLE 40 MG TAB PO SCH (06:20)
[2018-02-15 08:48] VITALS: BP 181/114
[2018-02-15] MEDS: cefTRIAXone 1GM/10ml IVPUSH 10 ML IV SCH (09:00)
[2018-02-15] MEDS ORDERED: LABETALOL HCL 5 MG/ML ML 20ML VIAL IV ONE (09:15)
[2018-02-15] MEDS: POTASSIUM CHL 20 Meq TABLET PO SCH (09:50)
[2018-02-15] MEDS: AMIODARONE HCL 200 MG TAB PO SCH (09:50)
[2018-02-15] MEDS: APIXABAN 2.5 MG TAB PO SCH (09:50)
[2018-02-15] MEDS: METOPROLOL SUCCINATE XL 50 MG TAB PO SCH (09:53)
[2018-02-15] MEDS: AZITHROMYCIN 500MG/ 250ML 250 ML IV SCH (10:00)
[2018-02-15 13:00] VITALS: BP 161/75
== END 2018-02-15 17:00 | disposition hospice, home (50) | DRG 291 ==
LOC: EDBD 20:58 → EDUNIT# 20:58 → ER 21:05 → TELE 21:06 → TELE-CENTR 02-13 04:17
PROVIDERS: ADMIT Nurse Practitioner; ATTEND Family Medicine
DX: I13.0 Hypertensive heart and chronic kidney disease with heart failure and stage 1 through stage 4 chronic kidney disease, or unspecified chronic kidney disease (principal); J18.9 Pneumonia, unspecified organism; J96.20 Acute and chronic respiratory failure, unspecified whether with hypoxia or hypercapnia; I50.43 Acute on chronic combined systolic (congestive) and diastolic (congestive) heart failure; N39.0 Urinary tract infection, site not specified; I48.92 Unspecified atrial flutter; N17.9 Acute kidney failure, unspecified; J44.0 Chronic obstructive pulmonary disease with (acute) lower respiratory infection; E11.22 Type 2 diabetes mellitus with diabetic chronic kidney disease; N18.3 Chronic kidney disease, stage 3 (moderate); I48.91 Unspecified atrial fibrillation; I25.10 Atherosclerotic heart disease of native coronary artery without angina pectoris; E78.00 Pure hypercholesterolemia, unspecified; E78.5 Hyperlipidemia, unspecified; E89.0 Postprocedural hypothyroidism; I08.0 Rheumatic disorders of both mitral and aortic valves; I48.2 Chronic atrial fibrillation; Z82.49 Family history of ischemic heart disease and other diseases of the circulatory system; Z79.4 Long term (current) use of insulin; Z91.14 Patient's other noncompliance with medication regimen; Z80.0 Family history of malignant neoplasm of digestive organs; Z82.0 Family history of epilepsy and other diseases of the nervous system; Z95.5 Presence of coronary angioplasty implant and graft
CPT/HCPCS: 36415; 51702; 71045; 80053; 81001; 82962; 83880; 84484; 85025; 85610; 85730; 87040; 87081; 93005; 96365; 96375; A6257; J0696; J1815